=== PATIENT | female | born 1960 | race Caucasian/White ===

== ENCOUNTER → 2016-11-29 | Outpatient (CLI) | payer OTHER ==
--- NOTE | 2016-11-30 11:36 | MM ---
Reason for exam: screening (asymptomatic). Last mammogram was performed 5 years and 1 month ago. History: Patient has history of breast cancer at age 52. Family history of breast cancer in mother at age 50, breast cancer in grandmother, and breast cancer in paternal aunt. Taking antineoplastic. Physical Findings: A clinical breast exam by your physician is recommended on an annual basis and results should be correlated with mammographic findings. MG 3D Screening Mammo W/Cad Bilateral CC and MLO view(s) were taken. Prior study comparison: June 01, 2015, mammogram, performed at [facility]. November 14, 2011, [facility] DIGITAL BILATERAL MAMMOGRAM w/CAD. November 07, 2011, bilateral digital screening mammo w/CAD. The breast tissue is heterogeneously dense. This may lower the sensitivity of mammography. There is no discrete abnormality. Post lumpectomy changes upper outer right breast. No significant changes when compared with prior studies. ASSESSMENT: Benign, BI-RAD 2 RECOMMENDATION: Routine screening mammogram of both breasts in 1 year.
== END ==
LOC: RADMAMWWP 09:56
PROVIDERS: ATTEND Internal Medicine
DX: Z12.31 Encounter for screening mammogram for malignant neoplasm of breast (principal)
CPT/HCPCS: 77063; G0202

== ENCOUNTER → 2017-07-03 | Outpatient (CLI) | payer OTHER ==
--- NOTE | 2017-07-03 16:21 | BD ---
EXAMINATION TYPE: MG DEXA axial skeleton. DATE OF EXAM: 07/03/2017 COMPARISON: NONE CLINICAL HISTORY: 56-year-old female history of breast cancer, observation for metastases Height: 5 FT 1/2 IN Weight: 194 FRAX RISK QUESTIONS: Alcohol (3 or more units per day): NO Family History (Parent hip fracture): NO Glucocorticoids (More than 3mos): NO (Ex: prednisone, prednisolone, methylprednisolone, dexamethasone, and hydrocortisone). History of Fracture in Adulthood: NO Secondary Osteoporosis: 1. Type 1 Diabetes: NO 2. Hyperthyroidism: NO 3. Menopause before 45: NO 4. Malnutrition: NO 5. Chronic liver disease: NO Rheumatoid Arthritis: NO Current Tobacco Use: NO RISK FACTORS HISTORY OF: Family History of Osteoporosis: NO Active: YES Postmenopausal woman: CHEMO INDUCED AGE 52 Lost more than 2 inches in height since high school: YES MEDICATIONS: Thyroid Medications: YES Which medication: SYNTHROID How Lon YEARS Additional Medications: TAMOXIFEN, SYNTHROID, METFORMIN ,REQUIP, CELEXA, OMEPRAZOLE,ABILIFY, BLADDER SUPPORT MEDS, Additional History: BREAST CA AGE 52 CHEMO AND RADIATION EXAM MEASUREMENTS: Bone mineral densitometry was performed using the Covac[employer] System. Bone mineral density as measured about the Lumbar spine is: ----- L1-L4(G/cm2): 0.940 T Score Values are as follows: ----- L2: -2.0 ----- L3: -2.1 ----- L4: -2.2 ----- L1-L4: -2.0 Bone mineral density has: DECREASED -3.9 % since study of: 2014 Bone mineral density about the R hip (g/cm2): 0.945 Bone mineral density about the L hip (g/cm2): 0.918 T Score values are as follows: -----R Neck: -0.7 -----L Neck: -0.9 -----R Total: -0.5 -----L Total: -0.9 Bone mineral density has: DECREASED -5.0 % since study of: 2014 IMPRESSION: Osteopenia (T Score between -2.5 and -1 as noted by T score values There is slightly increased risk of fracture and the patient may be considered for treatment. Re-Screen 2-5 years. NOTE: T-SCORE=SD OF THE YOUNG ADULT MEAN.
== END | disposition home or self-care (01) ==
LOC: RADBDWWP 13:06
PROVIDERS: ATTEND Internal Medicine Hematology & Oncology
DX: Z03.89 Encounter for observation for other suspected diseases and conditions ruled out (principal); C50.611 Malignant neoplasm of axillary tail of right female breast; M85.80 Other specified disorders of bone density and structure, unspecified site
CPT/HCPCS: 77080

== ENCOUNTER 2017-09-24 17:05 | Observation (INO) | payer OTHER ==
[2017-09-24] MEDS ORDERED: ASPIRIN 81 MG PO STA (17:30)
[2017-09-24] MEDS ORDERED: NITROGLYCERIN OINT 1 INCH/GM PACKET TOPICAL STA (17:30)
--- NOTE | 2017-09-24 17:36 | ED ---
General Adult HPI - General Chief complaint: Chest Pain Stated complaint: Chest Pain Time Seen by Provider: 09/24/17 17:26 Source: patient, RN notes reviewed Mode of arrival: ambulatory Limitations: no limitations - History of Present Illness Initial comments: Patient is a pleasant 56-year-old female presenting to the emergency Department with chest discomfort. Onset was around 4:30. Symptoms were moderate to severe however now are near resolved. Discomfort felt like tightness in the sternal region with radiation up to the jaw. There may have been some mild associated dyspnea. No nausea or diaphoresis. Patient was doing light exertion at this time. Patient has had some similar symptoms but milder over the past several weeks. Prior to that no history of similar symptoms. No known history of cardiac disease. - Related Data Home Medications Medication Instructions Recorded Confirmed Tamoxifen Citrate 20 mg PO HS 04/10/16 09/24/17 Zolpidem Tartrate 5 mg PO HS PRN 04/10/16 09/24/17 metFORMIN HCL 500 mg PO AC-TID 04/10/16 09/24/17 rOPINIRole HCL 0.5 mg PO BID 04/10/16 09/24/17 ALPRAZolam [Xanax] 0.5 mg PO HS 09/24/17 09/24/17 ARIPiprazole [Abilify] 5 mg PO DAILY 09/24/17 09/24/17 Citalopram Hydrobromide [CeleXA] 40 mg PO DAILY 09/24/17 09/24/17 Levothyroxine Sodium [Synthroid] 175 mcg PO DAILY 09/24/17 09/24/17 Oxybutynin Chloride [Ditropan XL] 15 mg PO DAILY 09/24/17 09/24/17 Pantoprazole [Protonix] 40 mg PO DAILY 09/24/17 09/24/17 Tamoxifen Citrate 40 mg PO DAILY 09/24/17 09/24/17 glipiZIDE [Glucotrol] 5 mg PO BID 09/24/17 09/24/17 Allergies Allergy/AdvReac Type Severity Reaction Status Date / Time Penicillins Allergy Severe Anaphylaxis Verified 09/24/17 17:35 adhesive tape Allergy Rash/Hives Verified 09/24/17 17:35 prochlorperazine Allergy Confusion Verified 09/24/17 17:35 [From Compazine] Review of Systems ROS Statement: Those systems with pertinent positive or pertinent negative responses have been documented in the HPI. ROS Other: All systems not noted in ROS Statement are negative. Constitutional: Denies: fever Eyes: Denies: eye pain ENT: Denies: ear pain Respiratory: Denies: cough Cardiovascular: Reports: chest pain Endocrine: Denies: fatigue Gastrointestinal: Denies: abdominal pain Genitourinary: Denies: dysuria Musculoskeletal: Denies: back pain Skin: Denies: rash Neurological: Denies: headache Past Medical History Past Medical History: Cancer, Diabetes Mellitus, GERD/Reflux, Syncope, Thyroid Disorder Additional Past Medical History / Comment(s): RLS, NIDDM type II, recent R eye infection-taking antibiotic eye gtts, diverticular dx, syncope with blood draw once, migraines, breast cancer with surgery/chemo and radiation, hypothyroid, insomnia. History of Any Multi-Drug Resistant Organisms: None Reported Past Surgical History: Breast Surgery, Tonsillectomy Additional Past Surgical History / Comment(s): R breast bx, R breast partial mastectomy, R breast precancerous lesion removed, EGD x2, colonoscopy. Past Anesthesia/Blood Transfusion Reactions: No Reported Reaction Past Psychological History: Anxiety, Depression Smoking Status: Former smoker Past Alcohol Use History: None Reported Past Drug Use History: None Reported - Past Family History Mother Family Medical History: Cancer Additional Family Medical History / Comment(s): Mother had breast cancer. She is 75 yrs old. Father Family Medical History: No Reported History Additional Family Medical History / Comment(s): Father is healthy and is 79yrs old. General Exam Limitations: no limitations General appearance: alert, in no apparent distress Head exam: Present: atraumatic Eye exam: Present: normal appearance, PERRL ENT exam: Present: normal oropharynx Neck exam: Present: normal inspection Respiratory exam: Present: normal lung sounds bilaterally. Absent: chest wall tenderness Cardiovascular Exam: Present: regular rate, normal rhythm Expanded Peripheral pulses: 2+: Radial (R), Radial (L), Dorsalis Pedis (R), Dorsalis Pedis (L) GI/Abdominal exam: Present: soft. Absent: distended, tenderness Extremities exam: Present: normal inspection. Absent: pedal edema, calf tenderness Neurological exam: Present: alert Psychiatric exam: Present: normal affect, normal mood Skin exam: Present: normal color Course Vital Signs 09/24/17 09/24/17 17:08 18:09 Temperature 98.6 F Pulse Rate 84 82 Respiratory 20 16 Rate Blood Pressure 132/80 107/64 O2 Sat by Pulse 97 96 Oximetry EKG Findings - EKG Comments: EKG Findings:: Normal sinus rhythm 79. [place] 162. QRS 90. QT 400. QTc 458. Normal axis. Normal QRS. Nonspecific T waves. Medical Decision Making - Medical Decision Making Patient reevaluated and resting comfortably in bed. Patient updated on results and plan. Case was discussed in detail with Dr. Raza, who will admit his patient. - Lab Data Result diagrams: 09/24/17 17:24 09/24/17 17:24 Lab Results 09/24/17 09/24/17 09/24/17 Range/Units 17:24 17:24 17:24 WBC 6.7 (3.8-10.6) k/uL RBC 4.52 (3.80-5.40) m/uL Hgb 13.1 (11.4-16.0) gm/dL Hct 40.1 (34.0-46.0) % MCV 88.6 (80.0-100.0) fL MCH 29.1 (25.0-35.0) pg MCHC 32.8 (31.0-37.0) g/dL RDW 12.9 (11.5-15.5) % Plt Count 230 (150-450) k/uL Neutrophils % 50 % Lymphocytes % 40 % Monocytes % 4 % Eosinophils % 5 % Basophils % 0 % Neutrophils # 3.4 (1.3-7.7) k/uL Lymphocytes # 2.7 (1.0-4.8) k/uL Monocytes # 0.2 (0-1.0) k/uL Eosinophils # 0.3 (0-0.7) k/uL Basophils # 0.0 (0-0.2) k/uL PT (9.0-12.0) sec INR (<1.2) APTT (22.0-30.0) sec Sodium 139 (137-145) mmol/L Potassium 4.6 (3.5-5.1) mmol/L Chloride 102 (98-107) mmol/L Carbon Dioxide 23 (22-30) mmol/L Anion Gap 14 mmol/L BUN 15 (7-17) mg/dL Creatinine 0.72 (0.52-1.04) mg/dL Est GFR (CKD-EPI)AfAm >90 (>60 ml/min/1.73 sqM) Est GFR (CKD-EPI)NonAf >90 (>60 ml/min/1.73 sqM) Glucose 152 H (74-99) mg/dL Calcium 9.6 (8.4-10.2) mg/dL Magnesium 1.7 (1.6-2.3) mg/dL Total Bilirubin 0.3 (0.2-1.3) mg/dL AST 27 (14-36) U/L ALT 31 (9-52) U/L Alkaline Phosphatase 78 (38-126) U/L Total Creatine Kinase 52 (30-135) U/L CK-MB (CK-2) 0.5 (0.0-2.4) ng/mL CK-MB (CK-2) Rel Index 1.0 Troponin I <0.012 (0.000-0.034) ng/mL Total Protein 6.8 (6.3-8.2) g/dL Albumin 4.2 (3.5-5.0) g/dL 09/24/17 Range/Units 17:24 WBC (3.8-10.6) k/uL RBC (3.80-5.40) m/uL Hgb (11.4-16.0) gm/dL Hct (34.0-46.0) % MCV (80.0-100.0) fL MCH (25.0-35.0) pg MCHC (31.0-37.0) g/dL RDW (11.5-15.5) % Plt Count (150-450) k/uL Neutrophils % % Lymphocytes % % Monocytes % % Eosinophils % % Basophils % % Neutrophils # (1.3-7.7) k/uL Lymphocytes # (1.0-4.8) k/uL Monocytes # (0-1.0) k/uL Eosinophils # (0-0.7) k/uL Basophils # (0-0.2) k/uL PT 9.8 (9.0-12.0) sec INR 1.0 (<1.2) APTT 21.6 L (22.0-30.0) sec Sodium (137-145) mmol/L Potassium (3.5-5.1) mmol/L Chloride (98-107) mmol/L Carbon Dioxide (22-30) mmol/L Anion Gap mmol/L BUN (7-17) mg/dL Creatinine (0.52-1.04) mg/dL Est GFR (CKD-EPI)AfAm (>60 ml/min/1.73 sqM) Est GFR (CKD-EPI)NonAf (>60 ml/min/1.73 sqM) Glucose (74-99) mg/dL Calcium (8.4-10.2) mg/dL Magnesium (1.6-2.3) mg/dL Total Bilirubin (0.2-1.3) mg/dL AST (14-36) U/L ALT (9-52) U/L Alkaline Phosphatase (38-126) U/L Total Creatine Kinase (30-135) U/L CK-MB (CK-2) (0.0-2.4) ng/mL CK-MB (CK-2) Rel Index Troponin I (0.000-0.034) ng/mL Total Protein (6.3-8.2) g/dL Albumin (3.5-5.0) g/dL - Radiology Data Radiology results: image reviewed (Chest x-ray shows no acute process) Disposition Clinical Impression: Chest pain Disposition: ADMITTED IP TO THIS HOSP Is patient prescribed a controlled substance at d/c from ED?: No Referrals: Alex Raza MD [Primary Care Provider] - 1-2 days Decision Time: 19:16
[2017-09-24 17:49] LABS: Basophils % (A) 0 %; Eosinophils # (A) 0.3 k/uL (0-0.7); Eosinophils % (A) 5 %; HCT 40.1 % (34.0-46.0); HGB 13.1 gm/dL (11.4-16.0); Lymphocytes # (A) 2.7 k/uL (1.0-4.8); Lymphocytes % (A) 40 %; MCH 29.1 pg (25.0-35.0); MCHC 32.8 g/dL (31.0-37.0); MCV 88.6 fL (80.0-100.0); Mean Platelet Volume 7.8; Monocytes # (A) 0.2 k/uL (0-1.0); Monocytes % (A) 4 %; Neutrophils # (A) 3.4 k/uL (1.3-7.7); Neutrophils % (A) 50 %; Platelet Count 230 k/uL (150-450); RBC 4.52 m/uL (3.80-5.40); RDW 12.9 % (11.5-15.5); WBC 6.7 k/uL (3.8-10.6)
[2017-09-24 17:50] LABS: ALT 31 U/L (9-52); AST 27 U/L (14-36); Albumin 4.2 g/dL (3.5-5.0); Alkaline Phosphatase 78 U/L (38-126); Anion Gap 14 mmol/L; Blood Urea Nitrogen 15 mg/dL (7-17); Calcium 9.6 mg/dL (8.4-10.2); Carbon Dioxide 23 mmol/L (22-30); Chloride 102 mmol/L (98-107); Glucose 152 mg/dL (74-99); Magnesium 1.7 mg/dL (1.6-2.3); Potassium 4.6 mmol/L (3.5-5.1); Sodium 139 mmol/L (137-145); Total Bilirubin 0.3 mg/dL (0.2-1.3); Total Protein 6.8 g/dL (6.3-8.2)
--- NOTE | 2017-09-24 17:51 | XR ---
EXAMINATION TYPE: XR chest 2V DATE OF EXAM: 09/24/2017 COMPARISON: 04/10/2016 HISTORY: Chest pain TECHNIQUE: Frontal and lateral views of the chest are obtained. FINDINGS: There is no heart failure nor confluent pneumonic infiltrate. Costophrenic angles are luc r. There are chest leads. Bony thorax is intact. IMPRESSION: No active cardiopulmonary disease. No change.
[2017-09-24 18:07] LABS: Prothrombin Time 9.8 sec (9.0-12.0)
[2017-09-24 18:10] LABS: Partial Thromboplastin Time 21.6 sec (22.0-30.0)
[2017-09-24 18:27] LABS: Creatine Kinase 52 U/L (30-135)
[2017-09-24 18:40] LABS: Creatine Kinase MB 0.5 ng/mL (0.0-2.4); Troponin I <0.012 ng/mL (0.000-0.034)
[2017-09-24] MEDS ORDERED: NITROGLYCERIN SL TABS 0.4 MG TAB SUBLINGUAL PRN (19:17)
[2017-09-24 21:53] VITALS: BMI 30.4
[2017-09-24] MEDS ORDERED: ACETAMINOPHEN TAB 325 MG TAB PO PRN (23:56)
[2017-09-24] MEDS: NITROGLYCERIN OINT 1 INCH/GM PACKET TOPICAL SCH (23:58)
[2017-09-25 00:07] LABS: Creatine Kinase 40 U/L (30-135)
[2017-09-25 00:19] LABS: Creatine Kinase MB 0.4 ng/mL (0.0-2.4); Troponin I <0.012 ng/mL (0.000-0.034)
[2017-09-25] MEDS: NITROGLYCERIN OINT 1 INCH/GM PACKET TOPICAL SCH ×3 (05:25→17:41)
[2017-09-25 05:57] LABS: Cholesterol 161 mg/dL (<200); HDL Cholesterol 42 mg/dL (40-60); LDL Cholesterol,Calculated 90 mg/dL (0-99); Triglycerides 145 mg/dL (<150)
[2017-09-25 06:04] LABS: Creatine Kinase 39 U/L (30-135)
[2017-09-25 06:17] LABS: Creatine Kinase MB 0.5 ng/mL (0.0-2.4); Troponin I <0.012 ng/mL (0.000-0.034)
[2017-09-25 06:56] LABS: Glucose,Whole Blood 164 mg/dL (75-99)
[2017-09-25 07:57] VITALS: RESP 18
[2017-09-25] MEDS ORDERED: ASPIRIN 325 MG TAB PO SCH (09:00)
--- NOTE | 2017-09-25 10:41 | ECHOF ---
Referral Reason:cp MEASUREMENTS -------- HEIGHT: 170.2 cm WEIGHT: 88.0 kg BP: 86/51 RVIDd: 2.7 cm (< 3.3) IVSd: 0.9 cm (0.6 - 1.1) LVIDd: 4.9 cm (3.9 - 5.3) LVPWd: 1.0 cm (0.6 - 1.1) IVSs: 1.3 cm LVIDs: 3.5 cm LVPWs: 1.4 cm LA Diam: 2.9 cm (2.7 - 3.8) LAESV Index (A-L): 22.94 ml/m Ao Diam: 3.2 cm (2.0 - 3.7) AV Cusp: 1.9 cm (1.5 - 2.6) MV EXCURSION: 26.725 mm (> 18.000) MV EF SLOPE: 135 mm/s (70 - 150) EPSS: 0.5 cm MV E Magan: 0.75 m/s MV DecT: 202 ms MV A Magan: 0.79 m/s MV E/A Ratio: 0.95 FINDINGS -------- Sinus rhythm. This was a technically adequate study. The left ventricular size is normal. Left ventricular wall thickness is normal. Overall left vent ricular systolic function is normal with, an EF between 55 - 60 %. The right ventricle is normal in size and function. Normal LA size by volume 22+/-6 ml/m2. The right atrium is normal in size. The aortic valve is trileaflet and appears structurally normal. The mitral valve is normal. No regurgitation noted There is no pulmonic regurgitation present. The aortic root size is normal. IVC Not well visulized. There is no pericardial effusion. CONCLUSIONS -------- 1. Sinus rhythm. 2. This was a technically adequate study. 3. The left ventricular size is normal. 4. Left ventricular wall thickness is normal. 5. Overall left ventricular systolic function is normal with, an EF between 55 - 60 %. 6. The right ventricle is normal in size and function. 7. Normal LA size by volume 22+/-6 ml/m2. 8. The right atrium is normal in size. 9. The aortic valve is trileaflet and appears structurally normal. 10. The mitral valve is normal. 11. No regurgitation noted 12. There is no pulmonic regurgitation present. 13. The aortic root size is normal. 14. IVC Not well visulized. 15. There is no pericardial effusion. LOAN APPROVER: Mirna Garcia RDCS
--- NOTE | 2017-09-25 11:52 | P.CRDCN ---
History of Present Illness Consult date: 09/25/17 History of present illness: Mrs. Aranda is a pleasant 56-year-old female past medical history for diabetes mellitus, breast cancer, gastroesophageal reflux disease, hypothyroid and osteoarthritis. She denies history of coronary artery disease. She underwent cardiac catheterization in 2016 which revealed normal coronary arteries with EF 60% by Dr. Chavez. We have been asked to see her in consultation for chest pain. 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 The heaviness persisted after the initial 15 minutes but the radiation and associated shortness of breath subsided and EMS was called. No further symptoms since arriving here and receiving sl ntg per EMS. She denies associated dizziness, palpitations, nausea, vomiting or diaphoresis. EKG sinus mechanism with non-specific T-wave abnormalities. No change from previous EKG. Chest xray negative for an acute cardiopulmonary process. Laboratory data reviewed, hemoglobin 13.1, platelets 2:30, sodium 139, potassium 4.6, magnesium 1.7, cardiac enzymes negative 3, LDL 90. Review of Systems At the time my exam: CONSTITUTIONAL: Denies fever. Denies chills. EYES: Denies blurred vision. Denies vision changes. Denies eye pain. EARS, NOSE, MOUTH & THROAT: Denies headache. Denies sore throat. Denies ear pain. CARDIOVASCULAR: Denies chest pain. Denies shortness of breath. Denies orthopnea. Denies PND. Denies palpitations. RESPIRATORY: Denies cough. GASTROINTESTINAL: Denies abdominal pain. Denies diarrhea. Denies constipation. Denies nausea. Denies vomiting. MUSCULOSKELETAL: Denies myalgias. INTEGUMENTARY: Denies pruitis. Denies rash. NEUROLOGIC: Denies numbness. Denies tingling. Denies weakness. PSYCHIATRIC: Denies anxiety. Denies depression. ENDOCRINE: Denies fatigue. Denies weight change. Denies polydipsia. Denies polyurina. GENITOURINARY: Denies burning, hematuria or urgency with micturation. HEMATOLOGIC: Denies history of anemia. Denies bleeding. Past Medical History Past Medical History: Asthma, Cancer, Diabetes Mellitus, GERD/Reflux, Osteoarthritis (OA), Syncope, Thyroid Disorder Additional Past Medical History / Comment(s): RLS, NIDDM type II, diverticular dx, syncope with blood draw once, migraines, breast cancer with surgery/chemo and radiation, hypothyroid, insomnia, heart cath 2017 History of Any Multi-Drug Resistant Organisms: None Reported Past Surgical History: Breast Surgery, Tonsillectomy Additional Past Surgical History / Comment(s): R breast bx, R breast partial mastectomy, R breast precancerous lesion removed, EGD x2, colonoscopy. Past Anesthesia/Blood Transfusion Reactions: No Reported Reaction Past Psychological History: Anxiety, Depression Additional Psychological History / Comment(s): Pt states she is on medication for depression and it is working well for her. She is independent. She lives at home with her spouse and children. Smoking Status: Former smoker Past Alcohol Use History: None Reported Additional Past Alcohol Use History / Comment(s): Pt states she smoked for one yr-age 19 to age 20yrs. Past Drug Use History: None Reported - Past Family History Mother Family Medical History: Cancer, Diabetes Mellitus Additional Family Medical History / Comment(s): Mother had breast cancer. She is 75 yrs old. Father Family Medical History: No Reported History, Cancer Additional Family Medical History / Comment(s): Father is healthy and is 79yrs old, prostate CA Brother(s) Family Medical History: Cancer Additional Family Medical History / Comment(s): Surgery throat CA Medications and Allergies Home Medications Medication Instructions Recorded Confirmed Type Tamoxifen Citrate 20 mg PO HS 04/10/16 09/24/17 History Zolpidem Tartrate 5 mg PO HS PRN 04/10/16 09/24/17 History metFORMIN HCL 500 mg PO AC-TID 04/10/16 09/24/17 History rOPINIRole HCL 1 mg PO BID 04/10/16 09/24/17 History ALPRAZolam [Xanax] 0.5 mg PO HS 09/24/17 09/24/17 History ARIPiprazole [Abilify] 5 mg PO DAILY 09/24/17 09/24/17 History Citalopram Hydrobromide [CeleXA] 40 mg PO DAILY 09/24/17 09/24/17 History Levothyroxine Sodium [Synthroid] 175 mcg PO DAILY 09/24/17 09/24/17 History Oxybutynin Chloride [Ditropan XL] 15 mg PO DAILY 09/24/17 09/24/17 History Pantoprazole [Protonix] 40 mg PO DAILY 09/24/17 09/24/17 History Tamoxifen Citrate 40 mg PO DAILY 09/24/17 09/24/17 History glipiZIDE [Glucotrol] 5 mg PO BID 09/24/17 09/24/17 History Allergies Allergy/AdvReac Type Severity Reaction Status Date / Time Penicillins Allergy Severe Anaphylaxis Verified 09/24/17 21:29 adhesive tape Allergy Rash/Hives Verified 09/24/17 21:29 prochlorperazine Allergy Confusion Verified 09/24/17 21:29 [From Compazine] Physical Exam Vitals: Vital Signs Temp Pulse Pulse Resp BP BP Pulse Ox 09/25/17 07:25 98.2 F 65 18 86/51 96 09/25/17 03:46 80 16 09/25/17 03:43 97.8 F 80 16 100/60 93 L 09/25/17 00:00 84 16 09/24/17 23:56 98.3 F 84 16 109/63 94 L 09/24/17 21:20 97.6 F 95 18 127/83 95 09/24/17 21:00 98 18 09/24/17 20:55 98.1 F 09/24/17 20:30 91 18 124/88 98 09/24/17 19:24 91 18 113/76 96 09/24/17 18:09 82 16 107/64 96 09/24/17 17:08 98.6 F 84 20 132/80 97 Intake and Output 09/24/17 09/25/17 09/25/17 22:59 06:59 14:59 Intake Total 500 250 Balance 500 250 Intake: Oral 500 250 Other: Voiding Method Toilet Toilet # Voids 1 2 Weight 88 kg Blood pressure 86/51 heart rate 65 afebrile maintaining oxygen saturation on room air GENERAL: This is a 56-year-old occasion female in no apparent distress at the time of my examination. HEENT: Head is atraumatic, normocephalic. Pupils are equal, round. Sclerae anicteric. Conjunctivae are clear. Mucous membranes of the mouth are moist. Neck is supple. There is no jugular venous distention. No carotid bruit is heard. LUNGS: Clear to auscultation no wheezes, rales or rhonchi. No chest wall tenderness is noted on palpation or with deep breathing. HEART: Regular rate and rhythm without murmurs, rubs or gallops. S1 and S2 heard. ABDOMEN: Soft, nontender. Bowel sounds are heard. No organomegaly noted. EXTREMITIES: No evidence of peripheral edema and no calf tenderness noted. VASCULAR: Radial and dorsalis pedis pulses palpated, no evidence of clubbing. NEUROLOGIC: Patient is awake, alert and oriented x3. Results 09/24/17 17:24 09/24/17 17:24 Cardiac Enzymes 09/24/17 09/24/17 09/24/17 Range/Units 17:24 17:24 23:26 AST 27 (14-36) U/L CK-MB (CK-2) 0.5 0.4 (0.0-2.4) ng/mL Troponin I <0.012 <0.012 (0.000-0.034) ng/mL 09/25/17 Range/Units 05:29 AST (14-36) U/L CK-MB (CK-2) 0.5 (0.0-2.4) ng/mL Troponin I <0.012 (0.000-0.034) ng/mL Coagulation 09/24/17 Range/Units 17:24 PT 9.8 (9.0-12.0) sec APTT 21.6 L (22.0-30.0) sec Lipids 09/25/17 Range/Units 05:29 Triglycerides 145 (<150) mg/dL Cholesterol 161 (<200) mg/dL HDL Cholesterol 42 (40-60) mg/dL CBC 09/24/17 Range/Units 17:24 WBC 6.7 (3.8-10.6) k/uL RBC 4.52 (3.80-5.40) m/uL Hgb 13.1 (11.4-16.0) gm/dL Hct 40.1 (34.0-46.0) % Plt Count 230 (150-450) k/uL Comprehensive Metabolic Panel 09/24/17 Range/Units 17:24 Sodium 139 (137-145) mmol/L Potassium 4.6 (3.5-5.1) mmol/L Chloride 102 (98-107) mmol/L Carbon Dioxide 23 (22-30) mmol/L BUN 15 (7-17) mg/dL Creatinine 0.72 (0.52-1.04) mg/dL Glucose 152 H (74-99) mg/dL Calcium 9.6 (8.4-10.2) mg/dL AST 27 (14-36) U/L ALT 31 (9-52) U/L Alkaline Phosphatase 78 (38-126) U/L Total Protein 6.8 (6.3-8.2) g/dL Albumin 4.2 (3.5-5.0) g/dL Current Medications Generic Name Dose Route Start Last Admin Trade Name Freq PRN Reason Stop Dose Admin Acetaminophen 650 mg 09/24/17 23:56 09/25/17 00:16 Tylenol Tab PO 650 mg Q4HR PRN Administration Fever and/ or Pain Aspirin 325 mg 09/25/17 09:00 Aspirin PO DAILY ODESSA Nitroglycerin 1 inch 09/25/17 00:00 09/25/17 05:25 Nitro-Bid Oint TOPICAL Not Given Q6HR ODESSA Nitroglycerin 0.4 mg 09/24/17 19:17 Nitrostat SUBLINGUAL Q5M PRN Chest Pain Intake and Output 09/24/17 09/25/17 09/25/17 22:59 06:59 14:59 Intake Total 500 250 Balance 500 250 Intake: Oral 500 250 Other: Voiding Method Toilet Toilet # Voids 1 2 Weight 88 kg 09/24/17 17:24 09/24/17 17:24 Assessment and Plan Assessment: ASSESSMENT 1. Precordial chest pain. An acute coronary event has been ruled out. PLAN Hold Nitro-Bid secondary to hypotension. Obtain 2-D echocardiogram and Doppler study to assess cardiac structure and function. Perform stress echocardiogram to assess for stress-induced cardiac ischemia. Stress test is normal she is stable from a cardiac perspective. Follow-up with primary care physician upon discharge. Thank you kindly for this consultation. The above impression and plan of care have been discussed and directed by the signing physician. Ann Marie Mcfarland, nurse practitioner, acting as scribe for signing physician.
[2017-09-25] MEDS ORDERED: ZOLPIDEM 5 MG TAB PO PRN (11:58)
[2017-09-25] MEDS ORDERED: ARIPiprazole 5 MG TAB PO SCH (12:00)
[2017-09-25] MEDS ORDERED: CITALOPRAM HYDROBROMIDE 20 MG TAB PO SCH (12:00)
[2017-09-25] MEDS ORDERED: LEVOTHYROXINE 100 MCG TAB PO SCH (12:00)
[2017-09-25] MEDS ORDERED: LEVOTHYROXINE 75 MCG TAB PO SCH (12:00)
[2017-09-25 12:23] LABS: Glucose,Whole Blood 147 mg/dL (75-99)
--- NOTE | 2017-09-25 12:41 | ECHOS ---
STRESS ECHOCARDIOGRAM INDICATIONS: Chest pain. BASELINE HEART RATE: 87 BASELINE BLOOD PRESSURE: 140/96 MAXIMUM HEART RATE: 142 MAXIMUM BLOOD PRESSURE: 151/59 85% MPHR: 141 100% MPHR: 161 MAXIMUM STAGE REACHED: I TOTAL EXERCISE TIME: 4:30 CLINICAL INFORMATION: Baseline EKG shows sinus rhythm, nonspecific ST-T wave changes. Patient exercised on Seun protocol for a total of 4.5 minutes achieving 5 METS, 88% of predicted maximal heart rate without chest pain or diagnostic ST-segment depression. Baseline echo shows normal left ventricular size, wall motion and systolic function. Intravenous contrast was used to enhance endocardial visualization. Postexercise, we do not see any exercise induced wall motion abnormalities. CONCLUSION: 1. Poor exercise tolerance. 2. Negative stress test by EKG criteria. 3. Negative stress echo. MMODL / IJN: [id number] /
[2017-09-25] MEDS: metFORMIN 500 MG TAB PO SCH ×2 (13:54→17:40)
[2017-09-25 14:13] LABS: Hemoglobin A1C 8.6 % (4.0-6.0)
[2017-09-25 16:35] VITALS: BP 121/79; PULSE 80; TEMP 98.4
[2017-09-25 17:24] LABS: Glucose,Whole Blood 123 mg/dL (75-99)
[2017-09-25] MEDS ORDERED: glipiZIDE 5 MG TAB PO SCH (17:30)
--- NOTE | 2017-09-25 17:58 | P.HPIM ---
History of Present Illness H&P Date: 09/25/17 Godwin Aranda is a 56-year-old female well known to my practice who presented to [facility] emergency room with a chief complaint of chest pain. She denies history of coronary artery disease. She had previous episodes of chest pain in the past. She underwent cardiac catheterization in 2016 which revealed normal coronary arteries with EF 60% by Dr. Chavez. 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 She denies associated dizziness, palpitations, nausea, vomiting or diaphoresis. EKG sinus rhythm with non-specific T-wave abnormalities. No change from previous EKG. Chest xray negative for an acute cardiopulmonary process. Patient has a known history of [id number] diabetes mellitus, history of hypothyroidism, history of breast cancer was previous history of radiation therapy 5 years ago, history of depression with anxiety disorder, and history of gastroesophageal reflux disease, patient had EGD with Dr. Espinoza 2 weeks ago results are not available at this time. Past Medical History Past Medical History: Asthma, Cancer, Diabetes Mellitus, GERD/Reflux, Osteoarthritis (OA), Syncope, Thyroid Disorder Additional Past Medical History / Comment(s): RLS, NIDDM type II, diverticular dx, syncope with blood draw once, migraines, breast cancer with surgery/chemo and radiation, hypothyroid, insomnia, heart cath 2017 History of Any Multi-Drug Resistant Organisms: None Reported Past Surgical History: Breast Surgery, Tonsillectomy Additional Past Surgical History / Comment(s): R breast bx, R breast partial mastectomy, R breast precancerous lesion removed, EGD x2, colonoscopy. Past Anesthesia/Blood Transfusion Reactions: No Reported Reaction Past Psychological History: Anxiety, Depression Additional Psychological History / Comment(s): Pt states she is on medication for depression and it is working well for her. She is independent. She lives at home with her spouse and children. Smoking Status: Former smoker Past Alcohol Use History: None Reported Additional Past Alcohol Use History / Comment(s): Pt states she smoked for one yr-age 19 to age 20yrs. Past Drug Use History: None Reported - Past Family History Mother Family Medical History: Cancer, Diabetes Mellitus Additional Family Medical History / Comment(s): Mother had breast cancer. She is 75 yrs old. Father Family Medical History: No Reported History, Cancer Additional Family Medical History / Comment(s): Father is healthy and is 79yrs old, prostate CA Brother(s) Family Medical History: Cancer Additional Family Medical History / Comment(s): Surgery throat CA Medications and Allergies Home Medications Medication Instructions Recorded Confirmed Type Zolpidem Tartrate 5 mg PO HS PRN 04/10/16 09/24/17 History metFORMIN HCL 500 mg PO AC-TID 04/10/16 09/24/17 History rOPINIRole HCL 1 mg PO BID 04/10/16 09/24/17 History ALPRAZolam [Xanax] 0.5 mg PO HS 09/24/17 09/24/17 History ARIPiprazole [Abilify] 5 mg PO DAILY 09/24/17 09/24/17 History Citalopram Hydrobromide [CeleXA] 40 mg PO DAILY 09/24/17 09/24/17 History Levothyroxine Sodium [Synthroid] 175 mcg PO DAILY 09/24/17 09/24/17 History Oxybutynin Chloride [Ditropan XL] 15 mg PO DAILY 09/24/17 09/24/17 History Pantoprazole [Protonix] 40 mg PO DAILY 09/24/17 09/24/17 History Tamoxifen Citrate 20 mg PO DAILY 09/24/17 09/25/17 History glipiZIDE [Glucotrol] 5 mg PO BID 09/24/17 09/24/17 History Allergies Allergy/AdvReac Type Severity Reaction Status Date / Time Penicillins Allergy Severe Anaphylaxis Verified 09/24/17 21:29 adhesive tape Allergy Rash/Hives Verified 09/24/17 21:29 prochlorperazine Allergy Confusion Verified 09/24/17 21:29 [From Compazine] Physical Exam Vitals: Vital Signs Temp Pulse Pulse Resp BP BP Pulse Ox 09/25/17 16:30 98.4 F 80 18 121/79 93 L 09/25/17 16:00 80 18 09/25/17 12:00 78 18 09/25/17 11:15 98.1 F 78 18 106/74 93 L 09/25/17 08:00 65 18 09/25/17 07:25 98.2 F 65 18 86/51 96 09/25/17 03:46 80 16 09/25/17 03:43 97.8 F 80 16 100/60 93 L 09/25/17 00:00 84 16 09/24/17 23:56 98.3 F 84 16 109/63 94 L 09/24/17 21:20 97.6 F 95 18 127/83 95 09/24/17 21:00 98 18 09/24/17 20:55 98.1 F 09/24/17 20:30 91 18 124/88 98 09/24/17 19:24 91 18 113/76 96 09/24/17 18:09 82 16 107/64 96 Intake and Output 09/25/17 09/25/17 09/25/17 06:59 14:59 22:59 Intake Total 250 Balance 250 Intake: Oral 250 Other: Voiding Method Toilet Toilet Toilet # Voids 2 3 In general patient is alert and oriented 3 in no apparent distress HEENT head normocephalic and atraumatic Neck is supple no JVD no goiter no lymphadenopathy Chest exam reveals a few scattered crackles no wheezing Cardiac exam reveals regular heart sounds S1 and S2 no gallops no murmurs Abdomen is soft nontender no organomegaly with normal bowel sounds Extremity exam reveals no edema no cyanosis or clubbing Neurological examination reveals no gross focal deficit Results CBC & Chem 7: 09/24/17 17:24 09/24/17 17:24 Labs: Abnormal Lab Results - Last 24 Hours (Table) 09/24/17 09/24/17 09/25/17 Range/Units 17:24 17:24 05:29 APTT 21.6 L (22.0-30.0) sec Glucose 152 H (74-99) mg/dL POC Glucose (mg/dL) (75-99) mg/dL Hemoglobin A1c 8.6 H (4.0-6.0) % 09/25/17 09/25/17 09/25/17 Range/Units 06:53 12:21 17:22 APTT (22.0-30.0) sec Glucose (74-99) mg/dL POC Glucose (mg/dL) 164 H 147 H 123 H (75-99) mg/dL Hemoglobin A1c (4.0-6.0) % Thrombosis Risk Factor Assmnt - Choose All That Apply Each Factor Represents 1 point: Age 41-60 years, Obesity (BMI >25), Varicose veins Other congenital or acquired thrombophilia - If yes, enter type in comment: No Thrombosis Risk Factor Assessment Total Risk Factor Score: 3 Thrombosis Risk Factor Assessment Level: Moderate Risk Assessment and Plan Plan: 1. chest pain, myocardial infarction ruled out 3 sets of cardiac enzymes are negative 2. Previous history of breast cancer with history of radiation therapy 3. History of gastroesophageal reflux disease with history of difficulty swallowing food , patient had an EGD at [facility] by Dr. Espinoza recently Will obtain results . 4. Underlying history of [id number] diabetes mellitus 5. Underlying history of hypothyroidism 6. Underlying history of depression. Patient is admitted to 24-hour observation, stress echo is ordered patient was seen by cardiology will follow during this admission.
--- NOTE | 2017-09-25 18:06 | P.DS ---
Providers Date of admission: 09/24/17 19:17 Attending physician: Alex Raza Consults: 09/24/17 19:17 Consult Physician Urgent Consulting Provider: Zhanna Chavez Consult Reason/Comments: cp Do you want consulting provider notified?: Yes Primary care physician: Alex Raza [facility] Course: Diagnoses on discharge: 1. chest pain, myocardial infarction ruled out 3 sets of cardiac enzymes are negative 2. Previous history of breast cancer with history of radiation therapy 3. History of gastroesophageal reflux disease with history of difficulty swallowing food , patient had an EGD at [facility] by Dr. Espinoza recently Will obtain results . 4. Underlying history of ssc-[id number] diabetes mellitus 5. Underlying history of hypothyroidism 6. Underlying history of depression. Hospital course: Godwin Aranda is a 56-year-old female well known to my practice who presented to [facility] emergency room with a chief complaint of chest pain. She denies history of coronary artery disease. She had previous episodes of chest pain in the past. She underwent cardiac catheterization in 2016 which revealed normal coronary arteries with EF 60% by Dr. Chavez. 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 She denies associated dizziness, palpitations, nausea, vomiting or diaphoresis. EKG sinus rhythm with non-specific T-wave abnormalities. No change from previous EKG. Chest xray negative for an acute cardiopulmonary process. Patient has a known history of [id number] diabetes mellitus, history of hypothyroidism, history of breast cancer was previous history of radiation therapy 5 years ago, history of depression with anxiety disorder, and history of gastroesophageal reflux disease, patient had EGD with Dr. Espinoza 2 weeks ago results are not available at this time. Patient was admitted to 24-hour observation she underwent an EKG and 3 sets of cardiac enzymes that were negative she was chest pain-free throughout this admission she underwent a stress echo which was negative she was evaluated by cardiology and was cleared for discharge. Patient was discharged home on 09/25/2017 she will be followed up in our office in 2-3 days for further evaluation and treatment. Plan - Discharge Summary Discharge Rx Participant: No New Discharge Prescriptions: New Aspirin EC [Ecotrin Low Dose] 81 mg PO DAILY 30 Days #30 tablet. Nitroglycerin Sl Tabs [Nitrostat] 0.4 mg SUBLINGUAL Q5M PRN #25 tab PRN Reason: Chest Pain Continue metFORMIN HCL 500 mg PO AC-TID rOPINIRole HCL 1 mg PO BID Zolpidem Tartrate 5 mg PO HS PRN PRN Reason: Insomnia Oxybutynin Chloride [Ditropan XL] 15 mg PO DAILY ARIPiprazole [Abilify] 5 mg PO DAILY glipiZIDE [Glucotrol] 5 mg PO BID Pantoprazole [Protonix] 40 mg PO DAILY Levothyroxine Sodium [Synthroid] 175 mcg PO DAILY ALPRAZolam [Xanax] 0.5 mg PO HS Tamoxifen Citrate 20 mg PO DAILY Citalopram Hydrobromide [CeleXA] 40 mg PO DAILY Discharge Medication List Zolpidem Tartrate 5 mg PO HS PRN 04/10/16 [History] metFORMIN HCL 500 mg PO AC-TID 04/10/16 [History] rOPINIRole HCL 1 mg PO BID 04/10/16 [History] ALPRAZolam [Xanax] 0.5 mg PO HS 09/24/17 [History] ARIPiprazole [Abilify] 5 mg PO DAILY 09/24/17 [History] Citalopram Hydrobromide [CeleXA] 40 mg PO DAILY 09/24/17 [History] Levothyroxine Sodium [Synthroid] 175 mcg PO DAILY 09/24/17 [History] Oxybutynin Chloride [Ditropan XL] 15 mg PO DAILY 09/24/17 [History] Pantoprazole [Protonix] 40 mg PO DAILY 09/24/17 [History] Tamoxifen Citrate 20 mg PO DAILY 09/24/17 [History] glipiZIDE [Glucotrol] 5 mg PO BID 09/24/17 [History] Aspirin EC [Ecotrin Low Dose] 81 mg PO DAILY 30 Days #30 tablet. 09/25/17 [Rx] Nitroglycerin Sl Tabs [Nitrostat] 0.4 mg SUBLINGUAL Q5M PRN #25 tab 09/25/17 [Rx ] Follow up Appointment(s)/Referral(s): Alex Raza MD [Primary Care Provider] - 1-2 days
[2017-09-25] MEDS ORDERED: ALPRAZolam 0.5 MG TAB PO SCH (21:00)
[2017-09-25] MEDS ORDERED: TAMOXIFEN 10 MG TAB PO SCH (21:00)
[2017-09-26] MEDS ORDERED: PANTOPRAZOLE 40 MG TABLET PO SCH (09:00)
[2017-09-26] MEDS ORDERED: OXYBUTYNIN 15 MG TAB.ER.24 PO SCH (09:00)
[2017-09-26] MEDS ORDERED: TAMOXIFEN 10 MG TAB PO SCH (09:00)
== END 2017-09-25 18:25 | disposition home or self-care (01) ==
LOC: EC 17:05 → 3OBS 19:17
PROVIDERS: ADMIT Internal Medicine; ATTEND Internal Medicine
DX: R07.2 Precordial pain (principal); R06.02 Shortness of breath; F41.9 Anxiety disorder, unspecified; I95.9 Hypotension, unspecified; J45.909 Unspecified asthma, uncomplicated; M19.90 Unspecified osteoarthritis, unspecified site; G47.00 Insomnia, unspecified; K21.9 Gastro-esophageal reflux disease without esophagitis; E11.9 Type 2 diabetes mellitus without complications; F32.9 Major depressive disorder, single episode, unspecified; G43.909 Migraine, unspecified, not intractable, without status migrainosus; G25.81 Restless legs syndrome; Z85.3 Personal history of malignant neoplasm of breast; Z92.3 Personal history of irradiation; E03.9 Hypothyroidism, unspecified; Z92.21 Personal history of antineoplastic chemotherapy; Z87.891 Personal history of nicotine dependence; Z80.8 Family history of malignant neoplasm of other organs or systems; Z80.42 Family history of malignant neoplasm of prostate; Z79.84 Long term (current) use of oral hypoglycemic drugs; Z79.899 Other long term (current) drug therapy; Z79.890 Hormone replacement therapy; Z91.048 Other nonmedicinal substance allergy status; Z88.0 Allergy status to penicillin; Z88.8 Allergy status to other drugs, medicaments and biological substances; E66.9 Obesity, unspecified; Z68.30 Body mass index [BMI] 30.0-30.9, adult
CPT/HCPCS: 99285; 36415; 93005; 93306; 80061; 80053; 82550 ×2; 82553 ×2; 83735; 84484 ×2; 85025; 85610; 85730; 83036; 71046; G0378 ×2; C8930; Q9950; 93351

== ENCOUNTER → 2017-10-18 | Outpatient (CLI) | payer OTHER ==
--- NOTE | 2017-10-18 12:37 | US ---
EXAMINATION TYPE: US gallbladder DATE OF EXAM: 10/18/2017 COMPARISON: NONE CLINICAL HISTORY: R10.13 Epigastric pain radiating to back EXAM MEASUREMENTS: Liver Length: 13.3 cm Gallbladder Wall: 0.2 cm CBD: 0.3 cm Right Kidney: 11.5 x 4.8 x 4.3 cm Pancreas: hyperechoic Liver: Hyperechoic with right renal cortex. This finding most commonly relates to hepatic steatosis and limits evaluation for underlying hepatic masses. Possible focal sparing is noted at gallbladder l evel as oval hypoechoic areas Gallbladder: wnl Evidence for sonographic Blanc's sign: No CBD: wnl Right Kidney: No hydronephrosis or masses seen IMPRESSION: Findings most commonly related to hepatic steatosis appearing moderate in degree. Probabl e focal fatty sparing is seen in segment IVb near the gallbladder fossa. Confirmation could be perfor med with dynamic enhanced CT.
== END | disposition home or self-care (01) ==
LOC: RADUSWWP 11:52
PROVIDERS: ATTEND Internal Medicine
DX: R10.13 Epigastric pain (principal)
CPT/HCPCS: 76705

== ENCOUNTER 2017-11-15 09:52 | Emergency (ER) | payer OTHER ==
[2017-11-15 09:58] VITALS: RESP 18
[2017-11-15] MEDS ORDERED: MORPHINE SULFATE 2 MG/ML SYRINGE IV STA (10:19)
[2017-11-15] MEDS ORDERED: MAG HYDROX/AL HYDROX/SIMETH 30 ML, HYOSCYAMINE ELIXIR 10 ML, CIMETIDINE HCL 300 MG, LID... PO STA ×4 (10:20)
--- NOTE | 2017-11-15 10:25 | ED ---
General Adult HPI - General Chief complaint: Chest Pain Stated complaint: CHEST PAIN X 3 DAYS Time Seen by Provider: 11/15/17 09:59 Source: patient Mode of arrival: wheelchair Limitations: no limitations - History of Present Illness Initial comments: 56-year-old female presents with central chest pain. Patient states her pain has been present for the past 3 days. Initially began at rest. Patient states that he has been worsening over the past 3 days. It is nonexertional. She describes it as a sharp pain. She does have history of gastric reflux, she states this is dissimilar from her normal reflux. States that the pain does travel into her neck. She took nitroglycerin prior to arrival with no change in her symptoms. She has no known history of CAD. She had stress testing done within the past several months which was negative. She is a nonsmoker. - Related Data Home Medications Medication Instructions Recorded Confirmed Zolpidem Tartrate 5 mg PO HS PRN 04/10/16 11/15/17 metFORMIN HCL 500 mg PO AC-TID 04/10/16 11/15/17 ARIPiprazole [Abilify] 5 mg PO DAILY 09/24/17 11/15/17 Citalopram Hydrobromide [CeleXA] 40 mg PO DAILY 09/24/17 11/15/17 Levothyroxine Sodium [Synthroid] 175 mcg PO DAILY 09/24/17 11/15/17 Oxybutynin Chloride [Ditropan XL] 15 mg PO DAILY 09/24/17 11/15/17 Pantoprazole [Protonix] 40 mg PO DAILY 09/24/17 11/15/17 Tamoxifen Citrate 20 mg PO DAILY 09/24/17 11/15/17 ALPRAZolam [Xanax] 0.25 mg PO HS 11/15/17 11/15/17 Albuterol Inhaler [Ventolin Hfa 1 - 2 puff INHALATION RT-Q6H PRN 11/15/17 Inhaler] Atorvastatin [Lipitor] 40 mg PO DAILY 11/15/17 11/15/17 Linagliptin [Tradjenta] 5 mg PO DAILY 11/15/17 11/15/17 Loratadine-Pseudoeph 10-240 mg 1 tab PO DAILY 11/15/17 11/15/17 [Claritin-D 24 Hr] Meclizine [Antivert] 25 mg PO DAILY 11/15/17 11/15/17 Metoprolol Tartrate [Lopressor] 25 mg PO BID 11/15/17 11/15/17 rOPINIRole HCL [Requip] 1 mg PO BID 11/15/17 11/15/17 Previous Rx's Medication Instructions Recorded Aspirin EC [Ecotrin Low Dose] 81 mg PO DAILY 30 Days #30 09/25/17 tablet. Nitroglycerin Sl Tabs [Nitrostat] 0.4 mg SUBLINGUAL Q5M PRN #25 tab 09/25/17 Azithromycin [Zithromax Z-pack] 0 mg PO DIRECTED #6 tab 11/15/17 Famotidine [Pepcid] 20 mg PO DAILY #30 tablet 11/15/17 Ibuprofen [Motrin] 600 mg PO Q8HR PRN #24 tab 11/15/17 Allergies Allergy/AdvReac Type Severity Reaction Status Date / Time Penicillins Allergy Severe Anaphylaxis Verified 11/15/17 10:40 adhesive tape Allergy Rash/Hives Verified 11/15/17 10:40 prochlorperazine Allergy Confusion Verified 11/15/17 10:40 [From Compazine] Review of Systems ROS Statement: Those systems with pertinent positive or pertinent negative responses have been documented in the HPI. ROS Other: All systems not noted in ROS Statement are negative. Past Medical History Past Medical History: Asthma, Cancer, Diabetes Mellitus, GERD/Reflux, Osteoarthritis (OA), Syncope, Thyroid Disorder Additional Past Medical History / Comment(s): RLS, NIDDM type II, diverticular dx, syncope with blood draw once, migraines, breast cancer with surgery/chemo and radiation, hypothyroid, insomnia, heart cath 2017 History of Any Multi-Drug Resistant Organisms: None Reported Past Surgical History: Breast Surgery, Tonsillectomy Additional Past Surgical History / Comment(s): R breast bx, R breast partial mastectomy, R breast precancerous lesion removed, EGD x2, colonoscopy. Past Anesthesia/Blood Transfusion Reactions: No Reported Reaction Past Psychological History: Anxiety, Depression Smoking Status: Former smoker Past Alcohol Use History: None Reported Past Drug Use History: None Reported - Past Family History Mother Family Medical History: Cancer, Diabetes Mellitus Additional Family Medical History / Comment(s): Mother had breast cancer. She is 75 yrs old. Father Family Medical History: No Reported History, Cancer Additional Family Medical History / Comment(s): Father is healthy and is 79yrs old, prostate CA Brother(s) Family Medical History: Cancer Additional Family Medical History / Comment(s): Surgery throat CA General Exam Limitations: no limitations General appearance: alert, in no apparent distress Head exam: Present: atraumatic, normocephalic Eye exam: Present: normal appearance, PERRL ENT exam: Present: normal exam Neck exam: Present: normal inspection. Absent: tenderness, meningismus Respiratory exam: Present: normal lung sounds bilaterally. Absent: respiratory distress, wheezes Cardiovascular Exam: Present: normal rhythm, tachycardia GI/Abdominal exam: Present: soft. Absent: distended, tenderness, guarding Extremities exam: Present: normal inspection, normal capillary refill. Absent: pedal edema, joint swelling Neurological exam: Present: alert, oriented X3, CN II-XII intact. Absent: motor sensory deficit Psychiatric exam: Present: normal affect, normal mood Skin exam: Present: warm, dry, intact. Absent: cyanosis, diaphoretic Course Vital Signs 11/15/17 11/15/17 11/15/17 09:55 10:55 12:01 Temperature 98.7 F Pulse Rate 103 H 109 H 96 Respiratory 18 18 18 Rate Blood Pressure 120/83 111/68 111/74 O2 Sat by Pulse 96 97 95 Oximetry 11/15/17 12:54 Temperature Pulse Rate 100 Respiratory 18 Rate Blood Pressure 108/70 O2 Sat by Pulse 96 Oximetry EKG Findings - EKG Comments: EKG Findings:: EKG: Obtained at 1006, sinus tachycardia with T-wave inversion in the precordial leads, poor baseline in leads 23 and aVF, no ST segment elevation, rate of 102, NH interval 168, QRS duration 86, QTC 437. Repeat EKG obtained at 1040 shows sinus tachycardia with persistent T-wave inversion. This is compared to old EKG obtained in September which is unchanged. There is no ST segment elevation. Rate of 102, NH interval 160, QRS duration 94, QTC 435 Medical Decision Making - Medical Decision Making 56-year-old female presenting with left-sided and central chest pain which is been present for 3 days. EKG does show some ischemic changes with T-wave inversion however this is unchanged from previous EKG. Symptoms have been constant for 3 days. Patient had a stress test and stress echo in September of this year which were negative. She had a heart catheterization in June 2015 which showed normal coronary arteries. Chest x-ray today is negative for any acute cardiopulmonary disease. CBC, CMP are within normal limits. Troponin is negative which is reassuring as symptoms have been present for the past 3 days and have been constant. CT is obtained this is negative for any acute cardiopulmonary embolism, there is some basilar atelectasis. Patient is given the option for observation and cardiology consultation she prefers to be discharged home. Her pain is unlikely cardiac in nature. Given normal chest x- ray, normal labs, and normal CT I'm comfortable with discharge at this time. She will return with any worsening or changing symptoms. She will try Motrin and Pepcid. She is also given a prescription for antibiotics as there is some atelectasis which may be early pneumonia she develops fever or cough she will begin antibiotics. - Lab Data Result diagrams: 11/15/17 10:12 11/15/17 10:12 Lab Results 11/15/17 11/15/17 11/15/17 Range/Units 10:12 10:12 10:12 WBC 10.4 (3.8-10.6) k/uL RBC 4.66 (3.80-5.40) m/uL Hgb 13.9 (11.4-16.0) gm/dL Hct 42.7 (34.0-46.0) % MCV 91.6 (80.0-100.0) fL MCH 29.7 (25.0-35.0) pg MCHC 32.5 (31.0-37.0) g/dL RDW 13.1 (11.5-15.5) % Plt Count 222 (150-450) k/uL Neutrophils % 78 % Lymphocytes % 16 % Monocytes % 3 % Eosinophils % 2 % Basophils % 0 % Neutrophils # 8.1 H (1.3-7.7) k/uL Lymphocytes # 1.6 (1.0-4.8) k/uL Monocytes # 0.3 (0-1.0) k/uL Eosinophils # 0.2 (0-0.7) k/uL Basophils # 0.0 (0-0.2) k/uL PT (9.0-12.0) sec INR (<1.2) APTT (22.0-30.0) sec D-Dimer (<0.60) mg/L FEU Sodium 137 (137-145) mmol/L Potassium 4.6 (3.5-5.1) mmol/L Chloride 101 (98-107) mmol/L Carbon Dioxide 23 (22-30) mmol/L Anion Gap 13 mmol/L BUN 12 (7-17) mg/dL Creatinine 0.80 (0.52-1.04) mg/dL Est GFR (CKD-EPI)AfAm >90 (>60 ml/min/1.73 sqM) Est GFR (CKD-EPI)NonAf 84 (>60 ml/min/1.73 sqM) Glucose 311 H (74-99) mg/dL Calcium 9.5 (8.4-10.2) mg/dL Magnesium 1.7 (1.6-2.3) mg/dL Total Bilirubin 0.4 (0.2-1.3) mg/dL AST 20 (14-36) U/L ALT 32 (9-52) U/L Alkaline Phosphatase 84 (38-126) U/L Total Creatine Kinase 25 L (30-135) U/L CK-MB (CK-2) 0.3 (0.0-2.4) ng/mL CK-MB (CK-2) Rel Index 1.2 Troponin I <0.012 (0.000-0.034) ng/mL NT-Pro-B Natriuret Pep pg/mL Total Protein 6.8 (6.3-8.2) g/dL Albumin 4.2 (3.5-5.0) g/dL Amylase 33 (30-110) U/L 11/15/17 11/15/17 Range/Units 10:12 10:12 WBC (3.8-10.6) k/uL RBC (3.80-5.40) m/uL Hgb (11.4-16.0) gm/dL Hct (34.0-46.0) % MCV (80.0-100.0) fL MCH (25.0-35.0) pg MCHC (31.0-37.0) g/dL RDW (11.5-15.5) % Plt Count (150-450) k/uL Neutrophils % % Lymphocytes % % Monocytes % % Eosinophils % % Basophils % % Neutrophils # (1.3-7.7) k/uL Lymphocytes # (1.0-4.8) k/uL Monocytes # (0-1.0) k/uL Eosinophils # (0-0.7) k/uL Basophils # (0-0.2) k/uL PT 9.4 (9.0-12.0) sec INR 0.9 (<1.2) APTT 20.8 L (22.0-30.0) sec D-Dimer 0.36 (<0.60) mg/L FEU Sodium (137-145) mmol/L Potassium (3.5-5.1) mmol/L Chloride (98-107) mmol/L Carbon Dioxide (22-30) mmol/L Anion Gap mmol/L BUN (7-17) mg/dL Creatinine (0.52-1.04) mg/dL Est GFR (CKD-EPI)AfAm (>60 ml/min/1.73 sqM) Est GFR (CKD-EPI)NonAf (>60 ml/min/1.73 sqM) Glucose (74-99) mg/dL Calcium (8.4-10.2) mg/dL Magnesium (1.6-2.3) mg/dL Total Bilirubin (0.2-1.3) mg/dL AST (14-36) U/L ALT (9-52) U/L Alkaline Phosphatase (38-126) U/L Total Creatine Kinase (30-135) U/L CK-MB (CK-2) (0.0-2.4) ng/mL CK-MB (CK-2) Rel Index Troponin I (0.000-0.034) ng/mL NT-Pro-B Natriuret Pep 45 pg/mL Total Protein (6.3-8.2) g/dL Albumin (3.5-5.0) g/dL Amylase (30-110) U/L Disposition Clinical Impression: Chest pain Disposition: HOME SELF-CARE Condition: Good Instructions: Chest Pain (ED) Prescriptions: Azithromycin [Zithromax Z-pack] 0 mg PO DIRECTED #6 tab Famotidine [Pepcid] 20 mg PO DAILY #30 tablet Ibuprofen [Motrin] 600 mg PO Q8HR PRN #24 tab PRN Reason: Pain Is patient prescribed a controlled substance at d/c from ED?: No Referrals: Alex Raza MD [Primary Care Provider] - 1-2 days Time of Disposition: 14:09
[2017-11-15 10:33] LABS: Basophils % (A) 0 %; Eosinophils # (A) 0.2 k/uL (0-0.7); Eosinophils % (A) 2 %; HCT 42.7 % (34.0-46.0); HGB 13.9 gm/dL (11.4-16.0); Lymphocytes # (A) 1.6 k/uL (1.0-4.8); Lymphocytes % (A) 16 %; MCH 29.7 pg (25.0-35.0); MCHC 32.5 g/dL (31.0-37.0); MCV 91.6 fL (80.0-100.0); Mean Platelet Volume 7.6; Monocytes # (A) 0.3 k/uL (0-1.0); Monocytes % (A) 3 %; Neutrophils # (A) 8.1 k/uL (1.3-7.7); Neutrophils % (A) 78 %; Platelet Count 222 k/uL (150-450); RBC 4.66 m/uL (3.80-5.40); RDW 13.1 % (11.5-15.5); WBC 10.4 k/uL (3.8-10.6)
--- NOTE | 2017-11-15 10:42 | XR ---
EXAMINATION TYPE: XR chest 2V DATE OF EXAM: 11/15/2017 COMPARISON: 09/24/2017 HISTORY: Chest pain and sternal pain with associated neck pain. Right axillary dissection and lumpect dc for breast cancer. TECHNIQUE: Frontal and lateral views of the chest are obtained. FINDINGS: Right axillary surgical clips are noted from prior lymph node dissection. No gross osseous abnormality is seen within the sternum on chest radiograph although in this patient with a history o f breast cancer nuclear medicine bone scan would be more sensitive. Cardiac silhouette is mildly enla rged. This may relative as there is better inspiration on the prior exam. No new focal consolidation, pleural effusion or pneumothorax. IMPRESSION: 1. No acute cardiopulmonary process. 2. No sternal osseous lesion, however in this patient with breast carcinoma nuclear medicine bone sca n would be more sensitive.
[2017-11-15 10:46] LABS: ALT 32 U/L (9-52); AST 20 U/L (14-36); Albumin 4.2 g/dL (3.5-5.0); Alkaline Phosphatase 84 U/L (38-126); Amylase 33 U/L (30-110); Anion Gap 13 mmol/L; Blood Urea Nitrogen 12 mg/dL (7-17); Calcium 9.5 mg/dL (8.4-10.2); Carbon Dioxide 23 mmol/L (22-30); Chloride 101 mmol/L (98-107); Glucose 311 mg/dL (74-99); Magnesium 1.7 mg/dL (1.6-2.3); Potassium 4.6 mmol/L (3.5-5.1); Sodium 137 mmol/L (137-145); Total Bilirubin 0.4 mg/dL (0.2-1.3); Total Protein 6.8 g/dL (6.3-8.2)
[2017-11-15 10:54] LABS: D-Dimer 0.36 mg/L FEU (<0.60); INR 0.9 (<1.2); Partial Thromboplastin Time 20.8 sec (22.0-30.0); Prothrombin Time 9.4 sec (9.0-12.0)
[2017-11-15 10:55] LABS: Creatine Kinase 25 U/L (30-135)
[2017-11-15 11:08] LABS: Creatine Kinase MB 0.3 ng/mL (0.0-2.4); Troponin I <0.012 ng/mL (0.000-0.034)
--- NOTE | 2017-11-15 12:10 | CT ---
EXAMINATION TYPE: CT angio chest DATE OF EXAM: 11/15/2017 COMPARISON: Chest x-ray 11/15/2017 HISTORY: Chest pain x3 days CT DLP: 350.5 mGycm Automated exposure control for dose reduction was used. CONTRAST: CTA scan of the thorax is performed with IV Contrast, patient injected with 75 mL of Isovue 370, pulm onary embolism protocol. MIP images are created and reviewed. 3D reconstructed images are created o n an independent workstation and reviewed. FINDINGS: LUNGS: The lungs are remarkable for some basilar atelectatic changes, difficult to exclude some airsp janet disease, there is no concerning parenchymal mass or nodule identified. There is no pleural effu jenny or pneumothorax seen. The tracheobronchial tree is patent. AORTA: No additional significant abnormality is seen. MEDIASTINUM: There is satisfactory enhancement of the pulmonary artery and its branches, there is no CT evidence for pulmonary embolism. There are no greater than 1 cm hilar or mediastinal lymph nodes. No pericardial effusion is seen. The heart is enlarged. Air present within the pulmonary outflow t ract is likely introduced during intravenous access OTHER: The liver shows low attenuation with areas of focal sparing compatible with hepatic steatosis , suspect hepatic enlargement is present. IMPRESSION: NO EVIDENT PULMONARY EMBOLISM. FINDINGS IN THE LUNG BASES, FOLLOW-UP SUGGESTED. ADDITIONAL FINDINGS A DAVIAN.
[2017-11-15 14:41] VITALS: BP 141/66; PULSE 84; TEMP 98
== END 2017-11-15 14:40 | disposition home or self-care (01) ==
LOC: EC 09:52
DX: R07.9 Chest pain, unspecified (principal); R94.31 Abnormal electrocardiogram [ECG] [EKG]; J98.11 Atelectasis; R00.0 Tachycardia, unspecified; M54.2 Cervicalgia; E11.9 Type 2 diabetes mellitus without complications; J45.909 Unspecified asthma, uncomplicated; K21.9 Gastro-esophageal reflux disease without esophagitis; G25.81 Restless legs syndrome; E03.9 Hypothyroidism, unspecified; F32.9 Major depressive disorder, single episode, unspecified; F41.9 Anxiety disorder, unspecified; Z87.891 Personal history of nicotine dependence; Z79.84 Long term (current) use of oral hypoglycemic drugs; Z79.899 Other long term (current) drug therapy; Z88.0 Allergy status to penicillin; Z88.8 Allergy status to other drugs, medicaments and biological substances; Z91.09 Other allergy status, other than to drugs and biological substances; Z86.69 Personal history of other diseases of the nervous system and sense organs; Z85.3 Personal history of malignant neoplasm of breast; Z90.11 Acquired absence of right breast and nipple; Z92.21 Personal history of antineoplastic chemotherapy; Z92.3 Personal history of irradiation; Z95.9 Presence of cardiac and vascular implant and graft, unspecified
CPT/HCPCS: 36415; 93005; 85379; 83880; 80053; 82150; 82550; 82553; 83735; 84484; 85025; 85610; 85730; 71046; 71275; 99285; 96374; J2270; Q9967

== ENCOUNTER → 2017-12-24 | Outpatient (CLI) | payer OTHER ==
--- NOTE | 2017-12-24 14:18 | MM ---
Reason for exam: additional evaluation requested from prior study. Last mammogram was performed 1 year and 1 month ago. History: Patient is postmenopausal and has history of breast cancer at age 52. Family history of breast cancer in mother at age 50, breast cancer in grandmother, and breast cancer in paternal aunt. Taking antineoplastic. Physical Findings: Nurse did not find any significant physical abnormalities on exam. MG Diagnostic Mammo w CAD BALDEMAR Bilateral CC and MLO view(s) were taken. Prior study comparison: November 29, 2016, bilateral MG 3d screening mammo w/cad. June 01, 2015, mammogram, performed at [facility]. The breast tissue is heterogeneously dense. This may lower the sensitivity of mammography. No suspicious abnormality. Post therapy change on the right. These results were verbally communicated with the patient and result sheet given to the patient on 12/24/17. ASSESSMENT: Benign, BI-RAD 2 RECOMMENDATION: Follow-up diagnostic mammogram of both breasts in 1 year.
== END | disposition home or self-care (01) ==
LOC: RADMAMWWP 12:55
PROVIDERS: ATTEND Internal Medicine Hematology & Oncology
DX: Z08 Encounter for follow-up examination after completed treatment for malignant neoplasm (principal); Z85.3 Personal history of malignant neoplasm of breast
CPT/HCPCS: 77066

== ENCOUNTER → 2018-02-26 | Outpatient (CLI) | payer OTHER ==
--- NOTE | 2018-02-27 09:40 | MR ---
EXAMINATION TYPE: MR brain wo/w con DATE OF EXAM: 02/26/2018 COMPARISON: HISTORY: TECHNIQUE: Multiplanar, multisequence images of the brain and brainstem is performed without and with IV contras t, utilizing mL intravenous . FINDINGS: Diffusion weighted images demonstrate no evidence of a recent infarct or other diffusion ab normality. There is no extra-axial fluid collection. There are scattered hyperintensities in the ce ntrum semiovale, periventricular white matter on inversion recovery T2-weighted sequences, approximat angle 10-20 lesions measuring approximately 2 to 3 mm. The ventricular system and cisternal spaces are normal in size and appearance. The brain volume is age appropriate. Midline structures demonstrate normal morphology. The craniocervical junction appears within normal limits. Post contrast images demonstrate no abnormal enhancement. The dural venous sinuses appear pa tent. The visualized sinuses are remarkable for inflammatory change in the ethmoid air cells, there i s mucoperiosteal thickening in the maxillary sinus, frontal sinus and inflammatory change in the righ t mastoid air cells greater than left is noted. The globes are intact. IMPRESSION: Nonspecific white matter demyelination, findings could be related to migraine headache, h ypertension, vasculitis, chronic small vessel ischemic change, Lyme disease, multiple sclerosis in th e appropriate clinical setting. Sinus disease. No abnormality evident to suggest metastatic disease. Inflammatory changes also noted in the mastoid air cells.
== END | disposition home or self-care (01) ==
LOC: RADMRIMAIN 19:15
PROVIDERS: ATTEND Internal Medicine
DX: R90.89 Other abnormal findings on diagnostic imaging of central nervous system (principal); Z85.3 Personal history of malignant neoplasm of breast
CPT/HCPCS: 70553; A9581

== ENCOUNTER 2018-08-19 16:59 | Inpatient (IN) | payer OTHER ==
[2018-08-19] MEDS ORDERED: ASPIRIN 81 MG PO STA (17:33)
--- NOTE | 2018-08-19 17:39 | ED ---
Chest Pain HPI - General Chief Complaint: Chest Pain Stated Complaint: Low blood sugar/Chest pain Time Seen by Provider: 08/19/18 17:24 Source: patient Mode of arrival: wheelchair Limitations: no limitations - History of Present Illness Initial Comments: The patient presents with a chief complaint of chest pain. Using by her primary care doctor today and was instructed to come to the emergency department for further testing. Patient states that the chest pain has been intermittent for several months, almost a year. She states that she cannot identify an inciting incident, though it appears to be exertional. She has symptoms of lightheadedness, shortness of breath, and diaphoresis when these episodes come. She has used nitroglycerin and states that it does relieve her chest pain. She has a past medical history of breast cancer, currently on maintenance and is far she knows is cancer free. - Related Data Home Medications Medication Instructions Recorded Confirmed Zolpidem Tartrate 5 mg PO HS PRN 04/10/16 08/19/18 metFORMIN HCL 500 mg PO AC-TID 04/10/16 08/19/18 ARIPiprazole [Abilify] 5 mg PO DAILY 09/24/17 08/19/18 Citalopram Hydrobromide [CeleXA] 40 mg PO DAILY 09/24/17 08/19/18 Oxybutynin Chloride [Ditropan XL] 15 mg PO DAILY 09/24/17 08/19/18 Pantoprazole [Protonix] 40 mg PO DAILY 09/24/17 08/19/18 ALPRAZolam [Xanax] 0.25 mg PO HS 11/15/17 08/19/18 rOPINIRole HCL [Requip] 1 mg PO BID 11/15/17 08/19/18 Anastrozole [Arimidex] 1 mg PO DAILY 08/19/18 08/19/18 Levothyroxine Sodium [Synthroid] 137 mcg PO DAILY 08/19/18 08/19/18 glipiZIDE [Glucotrol] 5 mg PO BID 08/19/18 08/19/18 Previous Rx's Medication Instructions Recorded Nitroglycerin Sl Tabs [Nitrostat] 0.4 mg SUBLINGUAL Q5M PRN #25 tab 09/25/17 Ibuprofen [Motrin] 600 mg PO Q8HR PRN #24 tab 11/15/17 Allergies Allergy/AdvReac Type Severity Reaction Status Date / Time Penicillins Allergy Severe Anaphylaxis Verified 08/19/18 18:59 adhesive tape Allergy Rash/Hives Verified 08/19/18 18:59 prochlorperazine Allergy Confusion Verified 08/19/18 18:59 [From Compazine] Review of Systems ROS Statement: Those systems with pertinent positive or pertinent negative responses have been documented in the HPI. ROS Other: All systems not noted in ROS Statement are negative. Respiratory: Reports: dyspnea Cardiovascular: Reports: chest pain, dyspnea on exertion Past Medical History Past Medical History: Asthma, Cancer, Diabetes Mellitus, GERD/Reflux, Osteoarthritis (OA), Syncope, Thyroid Disorder Additional Past Medical History / Comment(s): RLS, NIDDM type II, diverticular dx, syncope with blood draw once, migraines, breast cancer with surgery/chemo and radiation, hypothyroid, insomnia, heart cath 2017 History of Any Multi-Drug Resistant Organisms: None Reported Past Surgical History: Breast Surgery, Tonsillectomy Additional Past Surgical History / Comment(s): R breast bx, R breast partial mastectomy, R breast precancerous lesion removed, EGD x2, colonoscopy. Past Anesthesia/Blood Transfusion Reactions: No Reported Reaction Past Psychological History: Anxiety, Depression Smoking Status: Former smoker Past Alcohol Use History: None Reported Past Drug Use History: None Reported - Past Family History Mother Family Medical History: Cancer, Diabetes Mellitus Additional Family Medical History / Comment(s): Mother had breast cancer. She is 75 yrs old. Father Family Medical History: No Reported History, Cancer Additional Family Medical History / Comment(s): Father is healthy and is 79yrs old, prostate CA Brother(s) Family Medical History: Cancer Additional Family Medical History / Comment(s): Surgery throat CA General Exam Limitations: no limitations General appearance: alert, in no apparent distress Head exam: Present: atraumatic, normocephalic Eye exam: Present: normal appearance ENT exam: Present: normal exam Neck exam: Present: normal inspection Respiratory exam: Present: normal lung sounds bilaterally. Absent: respiratory distress, wheezes Cardiovascular Exam: Present: regular rate, normal rhythm GI/Abdominal exam: Present: soft. Absent: distended, tenderness Rectal exam: Present: deferred Extremities exam: Present: normal inspection. Absent: calf tenderness Back exam: Present: normal inspection Neurological exam: Present: alert, oriented X3 Psychiatric exam: Present: normal affect, normal mood Skin exam: Present: warm, dry, intact Course Vital Signs 08/19/18 08/19/18 17:06 18:53 Temperature 98.7 F Pulse Rate 101 H 108 H Respiratory 18 20 Rate Blood Pressure 119/80 138/93 O2 Sat by Pulse 98 97 Oximetry Chest Pain MDM - MDM Patient presents with a chief complaint of chest pain. On initial evaluation, vitals are stable, patient is in no acute distress. EKG performed at 1724 shows normal sinus rhythm with a rate of 94 beats per minutes. There are nonspecific ST and T-wave abnormalities, segments appear within normal limits. When compared to previous EKG performed on 11/15/2017, waveforms are similar. Does not appear to be any acute signs of ischemia. Patient to be evaluated basic labs including troponin, d-dimer. She'll be sent for a chest x-ray. Ultimately, patient will be admitted as she is a high risk heart score. Given HPI, comorbidities, and concern of her primary care doctor. 7:26 PM Lab evaluation this patient is remarkable for an anemia with a hemoglobin of 7.6. This is lower than previous values by several points, normally patient has a hemoglobin of high tens to low elevens. D-dimer is negative, troponin is negative. Case discussed Dr. Raza who accepts admission. Patient informed of results and care plan, she is agreeable. HEART Score for Major Cardiac Events from [email or web address] on 08/19/2018 All calculations should be rechecked by clinician prior to use RESULT SUMMARY: 6 points Moderate Score (4-6 points) Risk of MACE of 12-16.6%. INPUTS: History > 2 = Highly suspicious EKG > 1 = Non-specific repolarization disturbance Age > 1 = 45-64 Risk factors > 2 = ?3 risk factors or history of atherosclerotic disease Initial troponin > 0 = ?normal limit Disposition Clinical Impression: Anemia, Chest pain Disposition: ADMITTED IP TO THIS HOSP Condition: Good Is patient prescribed a controlled substance at d/c from ED?: No Referrals: Alex Raza MD [Primary Care Provider] - 1-2 days Decision to Admit Reason: Admit from EC - Out of Hospital Transfer - Req. Specs Out of Hospital Transfer - Requested Specifics: Telemetry Unit
[2018-08-19 17:47] LABS: Anisocytosis Slight; Basophils % (A) 1 %; Eosinophils # (A) 0.2 k/uL (0-0.7); Eosinophils % (A) 3 %; HCT 24.5 % (34.0-46.0); HGB 7.6 gm/dL (11.4-16.0); Hypochromasia Marked; Lymphocytes # (A) 2.5 k/uL (1.0-4.8); Lymphocytes % (A) 33 %; MCH 23.9 pg (25.0-35.0); MCHC 30.9 g/dL (31.0-37.0); MCV 77.3 fL (80.0-100.0); Mean Platelet Volume 6.9; Microcytosis Slight; Monocytes # (A) 0.3 k/uL (0-1.0); Monocytes % (A) 4 %; Neutrophils # (A) 4.4 k/uL (1.3-7.7); Neutrophils % (A) 58 %; Platelet Count 367 k/uL (150-450); Poikilocytosis Slight; RBC 3.17 m/uL (3.80-5.40); RDW 16.1 % (11.5-15.5); WBC 7.6 k/uL (3.8-10.6)
[2018-08-19 18:00] LABS: Anion Gap 8 mmol/L; Blood Urea Nitrogen 13 mg/dL (7-17); Calcium 9.8 mg/dL (8.4-10.2); Carbon Dioxide 26 mmol/L (22-30); Chloride 105 mmol/L (98-107); Glucose 66 mg/dL (74-99); Potassium 4.3 mmol/L (3.5-5.1); Sodium 139 mmol/L (137-145)
--- NOTE | 2018-08-19 19:03 | XR ---
EXAMINATION TYPE: XR chest 2V DATE OF EXAM: 08/19/2018 COMPARISON: 11/15/2017 HISTORY: History of breast carcinoma. Chest pain. TECHNIQUE: Frontal and lateral views of the chest are obtained. FINDINGS: There is no focal air space opacity, pleural effusion, or pneumothorax seen. The cardiac silhouette size is upper limits of normal. Right axillary surgical clips are noted. The osseous stru ctures are intact. Mild multilevel degenerative changes of the spine are seen. IMPRESSION: No acute cardiopulmonary process.
[2018-08-19] MEDS ORDERED: NALOXONE 0.4 MG/ML 1 ML VIAL IV PRN (19:24)
[2018-08-19 21:47] LABS: Glucose,Whole Blood 134 mg/dL (75-99)
[2018-08-20 06:36] LABS: ALT 30 U/L (9-52); AST 19 U/L (14-36); Albumin 3.6 g/dL (3.5-5.0); Alkaline Phosphatase 76 U/L (38-126); Anion Gap 8 mmol/L; Blood Urea Nitrogen 14 mg/dL (7-17); Calcium 9.3 mg/dL (8.4-10.2); Carbon Dioxide 25 mmol/L (22-30); Chloride 104 mmol/L (98-107); Glucose 203 mg/dL (74-99); Potassium 4.5 mmol/L (3.5-5.1); Sodium 137 mmol/L (137-145); Total Bilirubin 0.2 mg/dL (0.2-1.3); Total Protein 6.3 g/dL (6.3-8.2)
[2018-08-20 06:44] LABS: Anisocytosis Slight; Basophils % (A) 1 %; Eosinophils # (A) 0.2 k/uL (0-0.7); Eosinophils % (A) 2 %; HCT 22.2 % (34.0-46.0); Hypochromasia Marked; Lymphocytes # (A) 2.5 k/uL (1.0-4.8); Lymphocytes % (A) 33 %; MCH 24.3 pg (25.0-35.0); MCHC 30.9 g/dL (31.0-37.0); MCV 78.6 fL (80.0-100.0); Mean Platelet Volume 6.8; Microcytosis Slight; Monocytes # (A) 0.3 k/uL (0-1.0); Monocytes % (A) 4 %; Neutrophils # (A) 4.6 k/uL (1.3-7.7); Neutrophils % (A) 59 %; Platelet Count 336 k/uL (150-450); RBC 2.82 m/uL (3.80-5.40); RDW 16.1 % (11.5-15.5); WBC 7.8 k/uL (3.8-10.6)
[2018-08-20 06:48] LABS: Glucose,Whole Blood 234 mg/dL (75-99)
[2018-08-20 07:07] LABS: HGB 6.9 gm/dL (11.4-16.0)
[2018-08-20] MEDS ORDERED: ZOLPIDEM 5 MG TAB PO PRN (08:24)
[2018-08-20] MEDS ORDERED: ACETAMINOPHEN TAB 325 MG TAB PO PRN (08:28)
[2018-08-20] MEDS ORDERED: ONDANSETRON 4 MG/2 ML VIAL IVP PRN (08:28)
[2018-08-20] MEDS: CITALOPRAM HYDROBROMIDE 20 MG TAB PO SCH (08:58)
[2018-08-20] MEDS: ARIPiprazole 5 MG TAB PO SCH (08:59)
[2018-08-20] MEDS: LEVOTHYROXINE 137 MCG TAB PO SCH (08:59)
[2018-08-20] MEDS: ANASTROZOLE 1 MG TAB PO SCH (08:59)
[2018-08-20] MEDS: OXYBUTYNIN 15 MG TAB.ER.24 PO SCH (08:59)
[2018-08-20] MEDS: PANTOPRAZOLE 40 MG TABLET PO SCH (09:03)
[2018-08-20 11:41] LABS: Glucose,Whole Blood 175 mg/dL (75-99)
--- NOTE | 2018-08-20 11:55 | P.HPIM ---
History of Present Illness H&P Date: 08/20/18 This is a 57-year-old female patient who presented to the hospital complaining of chest pain. Patient reports that this chest pain intermittently occurring on and off for the past few months. Patient also reports shortness of breath with activity. On admission patient was found to have a hemoglobin of 7.6. Patient reports that she's been having frequent nosebleeds she goes through a whole roll of toilet paper to control the bleeding. Patient reports this is been intermittently occurring over the past month or so. Sometimes twice a day. Patient denies any signs of blood in her urine stool or emesis. Patient denies any abnormal bruising. Patient does have a history of breast cancer in which he follows with Dr. Garner, asthma, diabetes mellitus, GERD, osteoarthritis, hypothyroidism, anxiety and depression. Chest x-ray completed showing no acute cardiopulmonary process. Troponins negative 3. EKG completed showing normal sinus rhythm, low-voltage QRS. Repeat hemoglobin the same 6.9. Will transfuse 1 unit of PRBCs. Cardiology, GI services and hematology service is consulted. At this time patient denies chest pain or shortness of breath. Patient denies nausea vomiting or diarrhea. Patient denies any urinary burning or frequency Review of Systems Please refer to HPI otherwise unremarkable Past Medical History Past Medical History: Asthma, Cancer, Diabetes Mellitus, GERD/Reflux, Osteoarthritis (OA), Syncope, Thyroid Disorder Additional Past Medical History / Comment(s): RLS, NIDDM type II, diverticular dx, syncope with blood draw once, migraines, breast cancer with surgery/chemo and radiation (2013), hypothyroid, insomnia, heart cath 2016 History of Any Multi-Drug Resistant Organisms: None Reported Past Surgical History: Breast Surgery, Tonsillectomy Additional Past Surgical History / Comment(s): R breast bx, R breast partial mastectomy, R breast precancerous lesion removed, EGD x2, colonoscopy. Past Anesthesia/Blood Transfusion Reactions: No Reported Reaction Past Psychological History: Anxiety, Depression Additional Psychological History / Comment(s): Pt states she is on medication for depression and it is working well for her. She is independent. She lives at home with her spouse and children. Smoking Status: Former smoker Past Alcohol Use History: None Reported Additional Past Alcohol Use History / Comment(s): Pt states she smoked for one yr-age 19 to age 20yrs. Past Drug Use History: None Reported - Past Family History Mother Family Medical History: Cancer, Diabetes Mellitus Additional Family Medical History / Comment(s): Mother had breast cancer. She is 75 yrs old. Father Family Medical History: No Reported History, Cancer Additional Family Medical History / Comment(s): Father is healthy and is 79yrs old, prostate CA, bladder CA Brother(s) Family Medical History: Cancer, Myocardial Infarction ([place]) Additional Family Medical History / Comment(s): Surgery throat CA Medications and Allergies Home Medications Medication Instructions Recorded Confirmed Type Zolpidem Tartrate 5 mg PO HS PRN 04/10/16 08/19/18 History metFORMIN HCL 500 mg PO AC-TID 04/10/16 08/19/18 History ARIPiprazole [Abilify] 5 mg PO DAILY 09/24/17 08/19/18 History Citalopram Hydrobromide [CeleXA] 40 mg PO DAILY 09/24/17 08/19/18 History Oxybutynin Chloride [Ditropan XL] 15 mg PO DAILY 09/24/17 08/19/18 History Pantoprazole [Protonix] 40 mg PO DAILY 09/24/17 08/19/18 History Nitroglycerin Sl Tabs [Nitrostat] 0.4 mg SUBLINGUAL Q5M PRN #25 tab 09/25/17 08/19/18 Rx ALPRAZolam [Xanax] 0.25 mg PO HS 11/15/17 08/19/18 History Ibuprofen [Motrin] 600 mg PO Q8HR PRN #24 tab 11/15/17 08/19/18 Rx rOPINIRole HCL [Requip] 1 mg PO BID 11/15/17 08/19/18 History Anastrozole [Arimidex] 1 mg PO DAILY 08/19/18 08/19/18 History Levothyroxine Sodium [Synthroid] 137 mcg PO DAILY 08/19/18 08/19/18 History glipiZIDE [Glucotrol] 5 mg PO BID 08/19/18 08/19/18 History Allergies Allergy/AdvReac Type Severity Reaction Status Date / Time Penicillins Allergy Severe Anaphylaxis Verified 08/19/18 18:59 adhesive tape Allergy Rash/Hives Verified 08/19/18 18:59 prochlorperazine Allergy Confusion Verified 08/19/18 18:59 [From Compazine] Physical Exam Vitals: Vital Signs Temp Pulse Pulse Resp BP BP BP 08/20/18 11:09 98.4 F 100 16 121/60 08/20/18 08:00 79 18 08/20/18 07:57 98.7 F 79 18 97/62 08/20/18 04:00 98.6 F 95 18 103/64 08/20/18 00:00 98.1 F 103 H 18 122/78 08/19/18 20:00 98.2 F 97 18 118/83 08/19/18 19:55 98.5 F 95 18 110/80 08/19/18 18:53 108 H 20 138/93 08/19/18 17:06 98.7 F 101 H 18 119/80 Pulse Ox 08/20/18 11:09 97 08/20/18 08:00 08/20/18 07:57 97 08/20/18 04:00 96 08/20/18 00:00 97 08/19/18 20:00 96 08/19/18 19:55 97 08/19/18 18:53 97 08/19/18 17:06 98 Intake and Output 08/19/18 08/20/18 08/20/18 22:59 06:59 14:59 Other: Voiding Method Toilet Toilet Toilet # Voids 2 1 Weight 86.183 kg Head normocephalic Neck supple Lungs clear to auscultation bilaterally no wheezing or crackles Heart regular rate and rhythm S1-S2, no rub or gallop Abdomen is soft nontender nondistended positive bowel sounds no hepatosplenomegaly Extremities no edema Neuro alert and orientated to 3 Results CBC & Chem 7: 08/20/18 05:23 08/20/18 05:23 Labs: Abnormal Lab Results - Last 24 Hours (Table) 08/19/18 08/19/18 08/19/18 Range/Units 17:36 17:36 21:46 RBC 3.17 L (3.80-5.40) m/uL Hgb 7.6 L (11.4-16.0) gm/dL Hct 24.5 L (34.0-46.0) % MCV 77.3 L (80.0-100.0) fL MCH 23.9 L (25.0-35.0) pg MCHC 30.9 L (31.0-37.0) g/dL RDW 16.1 H (11.5-15.5) % Glucose 66 L (74-99) mg/dL POC Glucose (mg/dL) 134 H (75-99) mg/dL 08/20/18 08/20/18 08/20/18 Range/Units 05:23 05:23 06:46 RBC 2.82 L (3.80-5.40) m/uL Hgb 6.9 L* (11.4-16.0) gm/dL Hct 22.2 L (34.0-46.0) % MCV 78.6 L (80.0-100.0) fL MCH 24.3 L (25.0-35.0) pg MCHC 30.9 L (31.0-37.0) g/dL RDW 16.1 H (11.5-15.5) % Glucose 203 H (74-99) mg/dL POC Glucose (mg/dL) 234 H (75-99) mg/dL Thrombosis Risk Factor Assmnt - Choose All That Apply Any of the Below Risk Factors Present?: Yes Each Factor Represents 1 point: Age 41-60 years Other Risk Factors: No Thrombosis Risk Factor Assessment Total Risk Factor Score: 1 Thrombosis Risk Factor Assessment Level: Low Risk Assessment and Plan Assessment: 1. Chest pain or shortness breath. Chest x-ray completed showing no acute cardiopulmonary process. EKG showing normal sinus rhythm. Low voltage QRS. Nonspecific ST and T-wave abnormality. Troponins negative 3. Cardiology services have been consulted. 2. Anemia. Patient's hemoglobin on admit 7.6. This a.m. hemoglobin 6.9. She does report she's been having epistaxis frequently at home over the past month. Will transfuse 1 unit of PRBCs. Iron studies have been ordered. Will consult oncology services. Will also consult GI services. Will order stool for occult blood 3. History of breast cancer. Patient was diagnosed back in 2013 and underwent partial meniscectomy with chemo and radiation. Patient does follow with oncology services 4. History of asthma 5. History of GERD 6. History of arthritis 7. History of anxiety and depression. Home meds reordered 8. History of diabetes mellitus. Pulmonate hold sliding scale insulin added DVT prophylaxis SCDs due to anemia. GI prophylaxis Protonix Time with Patient: Greater than 30 (Greater than 60% of the total time spent in counseling and coordination of care. I performed an examination of the patient and discussed their management with the Nurse Practitioner. I have reviewed the Nurse Practitioner's notes and agree with the documented findings and plan of care)
[2018-08-20] MEDS: INSULIN ASPART (NovoLOG) 100 UNIT/ML VIAL SQ SCH ×3 (12:32→21:15)
--- NOTE | 2018-08-20 13:03 | P.CONS ---
History of Present Illness - Reason for Consult Consult date: 08/20/18 anemia Requesting physician: Alex Raza - Chief Complaint Epistaxis weakness - History of Present Illness 57-year-old female history of breast cancer admitted with weakness chest pain the last few months. Patient's he should have daily episodes of epistaxis lasting as long as 15 minutes and this is been intermittently ongoing for the last few months. Consult requested for anemia. Patient denies overt bleeding such as hematemesis hematochezia melena. Patient states she has been swallowing a lot of blood over the past week secondary to her nosebleeds. No aspirin or antiplatelet medications. She occasionally takes Excedrin for migraine and took a few doses of Motrin the last few days for arthritic pain. No history GI bleed. Her memory last EGD colonoscopy was 3-4 years ago does not remember the results. Admission hemoglobin 7.6 MCV 77. Platelet 367. White count 7.6. Hemoglobin today 6.9 receiving blood transfusion. No epistaxis today. BUN 13. Previous hemoglobin January 2018 was 13. Denies epigastric or abdominal pain. Chest x-ray no acute cardio pulmonary process. Review of Systems Constitutional: Denies fever, chills, sweats, weight gain, or loss. HEENT: Negative for migraines, blurred vision or loss, earaches, drainage, tinnitus, oral mucosal lesions, dysphagia, or odynophagia. CARDIAC: Admitted with chest pain, denies arrhythmias, or palpitation. RESPIRATORY: Negative for shortness of breath, hemoptysis, cough, or sputum production. GI: See HPI for pertinent findings. : Negative for hematuria, urgency, frequency, polyuria, or dysuria. GYNc: Denies possibility of . Negative vaginal discharge. MUSCULOSKELETAL: Negative for muscle aches, swelling, arthritis, and arthralgias. NEUROLOGIC: Negative for stroke or TIA. ENDOCRINE: Negative for thyroid problems. SKIN: Negative for rash or itching. PSYCHIATRIC: Negative history for depression and anxiety Past Medical History Past Medical History: Asthma, Cancer, Diabetes Mellitus, GERD/Reflux, Osteoarthritis (OA), Syncope, Thyroid Disorder Additional Past Medical History / Comment(s): RLS, NIDDM type II, diverticular dx, syncope with blood draw once, migraines, breast cancer with surgery/chemo and radiation (2013), hypothyroid, insomnia, heart cath 2017 History of Any Multi-Drug Resistant Organisms: None Reported Past Surgical History: Breast Surgery, Tonsillectomy Additional Past Surgical History / Comment(s): R breast bx, R breast partial mastectomy, R breast precancerous lesion removed, EGD x2, colonoscopy. Past Anesthesia/Blood Transfusion Reactions: No Reported Reaction Past Psychological History: Anxiety, Depression Additional Psychological History / Comment(s): Pt states she is on medication for depression and it is working well for her. She is independent. She lives at home with her spouse and children. Smoking Status: Former smoker Past Alcohol Use History: None Reported Additional Past Alcohol Use History / Comment(s): Pt states she smoked for one yr-age 19 to age 20yrs. Past Drug Use History: None Reported - Past Family History Mother Family Medical History: Cancer, Diabetes Mellitus Additional Family Medical History / Comment(s): Mother had breast cancer. She is 75 yrs old. Father Family Medical History: No Reported History, Cancer Additional Family Medical History / Comment(s): Father is healthy and is 79yrs old, prostate CA, bladder CA Brother(s) Family Medical History: Cancer, Myocardial Infarction ([place]) Additional Family Medical History / Comment(s): Surgery throat CA Medications and Allergies Home Medications Medication Instructions Recorded Confirmed Type Zolpidem Tartrate 5 mg PO HS PRN 04/10/16 08/19/18 History metFORMIN HCL 500 mg PO AC-TID 04/10/16 08/19/18 History ARIPiprazole [Abilify] 5 mg PO DAILY 09/24/17 08/19/18 History Citalopram Hydrobromide [CeleXA] 40 mg PO DAILY 09/24/17 08/19/18 History Oxybutynin Chloride [Ditropan XL] 15 mg PO DAILY 09/24/17 08/19/18 History Pantoprazole [Protonix] 40 mg PO DAILY 09/24/17 08/19/18 History Nitroglycerin Sl Tabs [Nitrostat] 0.4 mg SUBLINGUAL Q5M PRN #25 tab 09/25/17 08/19/18 Rx ALPRAZolam [Xanax] 0.25 mg PO HS 11/15/17 08/19/18 History Ibuprofen [Motrin] 600 mg PO Q8HR PRN #24 tab 11/15/17 08/19/18 Rx rOPINIRole HCL [Requip] 1 mg PO BID 11/15/17 08/19/18 History Anastrozole [Arimidex] 1 mg PO DAILY 08/19/18 08/19/18 History Levothyroxine Sodium [Synthroid] 137 mcg PO DAILY 08/19/18 08/19/18 History glipiZIDE [Glucotrol] 5 mg PO BID 08/19/18 08/19/18 History Allergies Allergy/AdvReac Type Severity Reaction Status Date / Time Penicillins Allergy Severe Anaphylaxis Verified 08/19/18 18:59 adhesive tape Allergy Rash/Hives Verified 08/19/18 18:59 prochlorperazine Allergy Confusion Verified 08/19/18 18:59 [From Compazine] Physical Exam Vitals: Vital Signs Temp Pulse Pulse Resp BP BP BP 08/20/18 12:53 98.4 F 100 16 121/60 08/20/18 11:09 98.4 F 100 16 121/60 08/20/18 08:00 79 18 08/20/18 07:57 98.7 F 79 18 97/62 08/20/18 04:00 98.6 F 95 18 103/64 08/20/18 00:00 98.1 F 103 H 18 122/78 08/19/18 20:00 98.2 F 97 18 118/83 08/19/18 19:55 98.5 F 95 18 110/80 08/19/18 18:53 108 H 20 138/93 08/19/18 17:06 98.7 F 101 H 18 119/80 Pulse Ox 08/20/18 12:53 08/20/18 11:09 97 08/20/18 08:00 08/20/18 07:57 97 08/20/18 04:00 96 08/20/18 00:00 97 08/19/18 20:00 96 08/19/18 19:55 97 08/19/18 18:53 97 08/19/18 17:06 98 Intake and Output 08/19/18 08/20/18 08/20/18 22:59 06:59 14:59 Intake Total 0 Balance 0 Intake: Blood Product 0 Rc As-1 Unit 0 [id number] Other: Voiding Method Toilet Toilet Toilet # Voids 2 1 Weight 86.183 kg General appearance: The patient is alert, oriented, in no acute distress. HET: Head is normocephalic and atraumatic. Pupils are equal and reactive. Oropharynx is clear without lesions. Neck: Supple without lymphadenopathy. Trachea midline. Heart: S1 S2. Regular rate and rhythm. Lungs: No crackles or wheezes are heard. Abdomen: Soft, nontender, nondistended with bowel sounds. No peritoneal signs. No palpable organomegaly or masses. Extremities: Normal skin color and turgor. No cyanosis, rash, ulceration, clubbing, or edema. Radial and pedal pulses are 2/4 bilaterally. Neurological: No focal deficits. Strength and sensation are grossly intact. Results CBC & Chem 7: 08/21/18 03:24 08/21/18 03:24 Labs: Abnormal Lab Results - Last 24 Hours (Table) 08/19/18 08/19/18 08/19/18 Range/Units 17:36 17:36 21:46 RBC 3.17 L (3.80-5.40) m/uL Hgb 7.6 L (11.4-16.0) gm/dL Hct 24.5 L (34.0-46.0) % MCV 77.3 L (80.0-100.0) fL MCH 23.9 L (25.0-35.0) pg MCHC 30.9 L (31.0-37.0) g/dL RDW 16.1 H (11.5-15.5) % Glucose 66 L (74-99) mg/dL POC Glucose (mg/dL) 134 H (75-99) mg/dL Crossmatch 08/20/18 08/20/18 08/20/18 Range/Units 05:23 05:23 06:46 RBC 2.82 L (3.80-5.40) m/uL Hgb 6.9 L* (11.4-16.0) gm/dL Hct 22.2 L (34.0-46.0) % MCV 78.6 L (80.0-100.0) fL MCH 24.3 L (25.0-35.0) pg MCHC 30.9 L (31.0-37.0) g/dL RDW 16.1 H (11.5-15.5) % Glucose 203 H (74-99) mg/dL POC Glucose (mg/dL) 234 H (75-99) mg/dL Crossmatch 08/20/18 08/20/18 Range/Units 09:23 11:38 RBC (3.80-5.40) m/uL Hgb (11.4-16.0) gm/dL Hct (34.0-46.0) % MCV (80.0-100.0) fL MCH (25.0-35.0) pg MCHC (31.0-37.0) g/dL RDW (11.5-15.5) % Glucose (74-99) mg/dL POC Glucose (mg/dL) 175 H (75-99) mg/dL Crossmatch See Detail Chest x-ray: report reviewed (Dr. Pedro) Assessment and Plan (1) Acute blood loss anemia Narrative/Plan: 57-year-old female who presents with acute symptomatic anemia chest pain with daily episodes of epistaxis over the last few weeks intermittently over last few months. Component of acute blood loss anemia most likely from epistaxis. Presently no obvious GI bleeding such as hematemesis hematochezia melena. No history of GI bleed. EGD colonoscopy 2-3 years ago to her memory was unremarkable. Current Visit: Yes Status: Acute Code(s): D62 - ACUTE POSTHEMORRHAGIC ANEMIA SNOMED Code(s): 620157194 (2) Epistaxis Current Visit: Yes Status: Acute Code(s): R04.0 - EPISTAXIS SNOMED Code(s): 037626248 (3) Chest pain Current Visit: Yes Status: Acute Code(s): R07.9 - CHEST PAIN, UNSPECIFIED SNOMED Code(s): 33214103 Plan: 1. FOBT was requested however most likely will be positive patient has been swallowing blood daily from epistaxis episodes. 2. Continue monitor CBC. No plans for inpatient endoscopy at this time anemia most likely from epistaxis not GI source. Diet as tolerated. We'll follow with you. We'll review previous endoscopic findings and placed in chart for review. Thank you for this kind referral and the opportunity to participate in the care of your patient. This consultation was discussed with Dr. Pedro. The impression and plan of care have been directed as dictated.
--- NOTE | 2018-08-20 14:07 | P.CRDCN ---
History of Present Illness Consult date: 08/20/18 Requesting physician: Alex Raza Chief complaint: Chest pain, epistaxis History of present illness: This is a 57-year-old female with history of diabetes, hyperlipidemia, GERD, prior breast cancer, hypothyroidism, osteoarthritis, who presented to the hospital after being referred by her primary care physician, because of a low hemoglobin. According to the patient, she states that she's been having epistax is at home, at times lasting up to 20 minutes to half hour in duration. She was at her primary care doctor's office, had been explaining to him that she been spearing taking intermittent chest pressure and heaviness with associated shortness of breath, he did some lab work, revealed that the hemoglobin was quite low and for this reason patient was referred to come to the hospital for admission. Chest x-ray on admission did not reveal any acute cardiopulmonary process. EKG showed a normal sinus rhythm with nonspecific ST-T wave changes noted . These similar changes have been noted in the past. In September 2017, patient had presented to the hospital with some chest discomfort, underwent a st ress test which came back positive for reversible ischemia, patient also had T wave inversion noted on that admission. She underwent a cardiac catheterization on that admission which revealed non-obstructive coronary artery disease. Chest x-ray performed on admission did not reveal any acute cardiopulmonary process. Blood pressure 116/60 with a heart rate in the 80s, 97% on room air. Laboratory data was reviewed, white blood cell count 7.6 on admission hemoglobin 7.6, platelet count 267. Today's labs, hemoglobin 6.9. Sodium 137, potassium 4.5, BUN 14 and creatinine 0.7. Troponins negative 3. Patient is scheduled today to receive a blood transfusion. Past Medical History Past Medical History: Asthma, Cancer, Diabetes Mellitus, GERD/Reflux, Os teoarthritis (OA), Syncope, Thyroid Disorder Additional Past Medical History / Comment(s): RLS, NIDDM type II, diverticular dx, syncope with blood draw once, migraines, breast cancer with surgery/chemo and radiation (2013), hypothyroid, insomnia, heart cath 2017 History of Any Multi-Drug Resistant Organisms: None Reported Past Surgical History: Breast Surgery, Tonsillectomy Additional Past Surgical History / Comment(s): R breast bx, R breast partial mastectomy, R breast precancerous lesion removed, EGD x2, colonoscopy. Past Anesthesia/Blood Transfusion Reactions: No Reported Reaction Past Psychological History: Anxiety, Depression Additional Psychological History / Comment(s): Pt states she is on medication for depression and it is working well for her. She is independent. She lives at home with her spouse and children. Smoking Status: Former smoker Past Alcohol Use History: None Reported Additional Past Alcohol Use History / Comment(s): Pt states she smoked for one yr-age 19 to age 20yrs. Past Drug Use History: None Reported - Past Family History Mother Family Medical History: Cancer, Diabetes Mellitus Additional Family Medical History / Comment(s): Mother had breast cancer. She is 75 yrs old. Father Family Medical History: No Reported History, Cancer Additional Family Medical History / Comment(s): Father is healthy and is 79yrs old, prostate CA, bladder CA Brother(s) Family Medical History: Cancer, Myocardial Infarction ([place]) Additional Family Medical History / Comment(s): Surgery throat CA Medications and Allergies Home Medications Medication Instructions Recorded Confirmed Type Zolpidem Tartrate 5 mg PO HS PRN 04/10/16 08/19/18 History metFORMIN HCL 500 mg PO AC-TID 04/10/16 08/19/18 History ARIPiprazole [Abilify] 5 mg PO DAILY 09/24/17 08/19/18 History Citalopram Hydrobromide [CeleXA] 40 mg PO DAILY 09/24/17 08/19/18 History Oxybutynin Chloride [Ditropan XL] 15 mg PO DAILY 09/24/17 08/19/18 History Pantoprazole [Protonix] 40 mg PO DAILY 09/24/17 08/19/18 History Nitroglycerin Sl Tabs [Nitrostat] 0.4 mg SUBLINGUAL Q5M PRN #25 tab 09/25/17 08/19/18 Rx ALPRAZolam [Xanax] 0.25 mg PO HS 11/15/17 08/19/18 History Ibuprofen [Motrin] 600 mg PO Q8HR PRN #24 tab 11/15/17 08/19/18 Rx rOPINIRole HCL [Requip] 1 mg PO BID 11/15/17 08/19/18 History Anastrozole [Arimidex] 1 mg PO DAILY 08/19/18 08/19/18 History Levothyroxine Sodium [Synthroid] 137 mcg PO DAILY 08/19/18 08/19/18 History glipiZIDE [Glucotrol] 5 mg PO BID 08/19/18 08/19/18 History Allergies Allergy/AdvReac Type Severity Reaction Status Date / Time Penicillins Allergy Severe Anaphylaxis Verified 08/19/18 18:59 adhesive tape Allergy Rash/Hives Verified 08/19/18 18:59 prochlorperazine Allergy Confusion Verified 08/19/18 18:59 [From Compazine] Physical Exam Vitals: Vital Signs Temp Pulse Pulse Resp BP BP BP 08/20/18 13:02 98.5 F 80 16 111/69 08/20/18 12:53 98.4 F 100 16 121/60 08/20/18 11:09 98.4 F 100 16 121/60 08/20/18 08:00 79 18 08/20/18 07:57 98.7 F 79 18 97/62 08/20/18 04:00 98.6 F 95 18 103/64 08/20/18 00:00 98.1 F 103 H 18 122/78 08/19/18 20:00 98.2 F 97 18 118/83 08/19/18 19:55 98.5 F 95 18 110/80 08/19/18 18:53 108 H 20 138/93 08/19/18 17:06 98.7 F 101 H 18 119/80 Pulse Ox 08/20/18 13:02 98 08/20/18 12:53 08/20/18 11:09 97 08/20/18 08:00 08/20/18 07:57 97 08/20/18 04:00 96 08/20/18 00:00 97 08/19/18 20:00 96 08/19/18 19:55 97 08/19/18 18:53 97 08/19/18 17:06 98 Intake and Output 08/19/18 08/20/18 08/20/18 22:59 06:59 14:59 Intake Total 0 Balance 0 Intake: Blood Product 0 Rc As-1 Unit 0 [id number] Other: Voiding Method Toilet Toilet Toilet # Voids 2 1 Weight 86.183 kg PHYSICAL EXAMINATION: GENERAL: 57-year-old female in no acute distress at the time of my examination HEENT: Head is atraumatic, normocephalic. Pupils equal, round. Sclera anicteric. Conjunctiva are clear. Mucous membranes of the mouth are moist. Neck is supple. There is no elevated jugular venous pressure. No carotid bruit is heard. HEART EXAMINATION: Heart S1, S2 normal. No murmur or gallop heard. CHEST EXAMINATION: Lungs are clear to auscultation and precussion. No chest wall tenderness is noted on palpation or with deep breathing. ABDOMEN: Soft, nontender. Bowel sounds are heard. No organomegaly noted. EXTREMITIES: 2+ peripheral pulses with no evidence of peripheral edema and no calf tenderness noted. NEUROLOGIC patient is awake, alert and oriented 3 . . Results 08/20/18 05:23 08/20/18 05:23 Cardiac Enzymes 08/19/18 08/19/18 08/20/18 Range/Units 17:36 23:04 05:23 AST 19 (14-36) U/L Troponin I <0.012 <0.012 (0.000-0.034) ng/mL 08/20/18 Range/Units 05:23 AST (14-36) U/L Troponin I <0.012 (0.000-0.034) ng/mL CBC 08/19/18 08/20/18 Range/Units 17:36 05:23 WBC 7.6 7.8 (3.8-10.6) k/uL RBC 3.17 L 2.82 L (3.80-5.40) m/uL Hgb 7.6 L 6.9 L* (11.4-16.0) gm/dL Hct 24.5 L 22.2 L (34.0-46.0) % Plt Count 367 336 (150-450) k/uL Comprehensive Metabolic Panel 08/19/18 08/20/18 Range/Units 17:36 05:23 Sodium 139 137 (137-145) mmol/L Potassium 4.3 4.5 (3.5-5.1) mmol/L Chloride 105 104 (98-107) mmol/L Carbon Dioxide 26 25 (22-30) mmol/L BUN 13 14 (7-17) mg/dL Creatinine 0.70 0.76 (0.52-1.04) mg/dL Glucose 66 L 203 H (74-99) mg/dL Calcium 9.8 9.3 (8.4-10.2) mg/dL AST 19 (14-36) U/L ALT 30 (9-52) U/L Alkaline Phosphatase 76 (38-126) U/L Total Protein 6.3 (6.3-8.2) g/dL Albumin 3.6 (3.5-5.0) g/dL Current Medications Generic Name Dose Route Start Last Admin Trade Name Freq PRN Reason Stop Dose Admin Acetaminophen 650 mg 08/20/18 08:28 Tylenol Tab PO Q6HR PRN Fever and/ or Pain Alprazolam 0.25 mg 08/20/18 21:00 Xanax PO HS ODESSA Anastrozole 1 mg 08/20/18 09:00 08/20/18 08:59 Arimidex PO 1 mg DAILY ODESSA Administration Aripiprazole 5 mg 08/20/18 09:00 08/20/18 08:59 Abilify PO 5 mg DAILY ODESSA Administration Citalopram Hydrobromide 40 mg 08/20/18 09:00 08/20/18 08:58 Celexa PO 40 mg DAILY ODESSA Administration Insulin Aspart 0 unit 08/20/18 12:30 08/20/18 12:32 Novolog SQ 2 unit ACHS ODESSA Administration Protocol Levothyroxine Sodium 137 mcg 08/20/18 09:00 08/20/18 08:59 Synthroid PO 137 mcg DAILY@0630 ODESSA Administration Naloxone HCl 0.2 mg 08/19/18 19:24 Narcan IV Q2M PRN Opioid Reversal Ondansetron HCl 4 mg 08/20/18 08:28 Zofran IVP Q6HR PRN Vomiting Oxybutynin Chloride 15 mg 08/20/18 09:00 08/20/18 08:59 Ditropan Xl PO 15 mg DAILY ODSESA Administration Pantoprazole Sodium 40 mg 08/20/18 09:00 08/20/18 09:03 Protonix PO 40 mg [id number] ODESSA Administration Ropinirole HCl 1 mg 08/20/18 09:00 08/20/18 08:58 Requip PO 1 mg BID ODESSA Administration Zolpidem Tartrate 5 mg 08/20/18 08:24 Ambien PO HS PRN Insomnia Intake and Output 08/19/18 08/20/18 08/20/18 22:59 06:59 14:59 Intake Total 0 Balance 0 Intake: Blood Product 0 Rc As-1 Unit 0 [id number] Other: Voiding Method Toilet Toilet Toilet # Voids 2 1 Weight 86.183 kg 08/20/18 05:23 08/20/18 05:23 EKG Interpretations (text) EKG shows normal sinus rhythm with nonspecific T-wave changes similar to prior EKGs. Assessment and Plan Plan: Assessment and plan #1 Symptoms of chest discomfort with mild associated shortness of breath, EKG sh ows normal sinus rhythm with no acute changes. Troponins are negative 3, not suggestive of acute coronary syndrome, could be secondary to anemia. Patient did undergo cardiac catheterization in 2017 which revealed normal coronary arteries. #2 diabetes #3 hyperlipidemia #4 GERD #5 anemia with a hemoglobin of 6.9. #6 hypothyroidism Plan We will obtain a repeat echocardiogram with Doppler study. Patient's chest pain likely secondary to anemia. Would recommend to start the patient on a statin being that she is diabetic. Patient will receive blood transfusion, as an outpatient we recommend that she follow-up in the office. DNP note has been reviewed, I agree with a documented findings and plan of care. Patient was seen and examined.
--- NOTE | 2018-08-20 15:59 | ECHOF ---
Referral Reason:chest pain MEASUREMENTS -------- HEIGHT: 167.6 cm WEIGHT: 86.2 kg BP: 125/80 RVIDd: 2.6 cm (< 3.3) IVSd: 1.1 cm (0.6 - 1.1) LVIDd: 4.1 cm (3.9 - 5.3) LVPWd: 1.2 cm (0.6 - 1.1) IVSs: 1.5 cm LVIDs: 2.7 cm LVPWs: 1.7 cm LA Diam: 2.9 cm (2.7 - 3.8) LAESV Index (A-L): 22.36 ml/m Ao Diam: 3.1 cm (2.0 - 3.7) AV Cusp: 2.1 cm (1.5 - 2.6) MV EXCURSION: 22.451 mm (> 18.000) MV EF SLOPE: 139 mm/s (70 - 150) EPSS: 0.7 cm MV E Magan: 0.82 m/s MV DecT: 256 ms MV A Magan: 0.74 m/s MV E/A Ratio: 1.10 FINDINGS -------- Sinus rhythm. This was a technically adequate study. The left ventricular size is normal. There is borderline concentric left ventricular hypertrophy. Overall left ventricular systolic function is normal with, an EF between 60 - 65 %. The right ventricle is normal in size. Normal LA size by volume 22+/-6 ml/m2. The right atrium is normal in size. The aortic valve is trileaflet and appears structurally normal. The mitral valve is normal. The tricuspid valve appears structurally normal. Trace/mild (physiologic) pulmonic regurgitation. The aortic root size is normal. Normal inferior vena cava with normal inspiratory collapse consistent with estimated right atrial pre ssure of 5 mmHg. There is no pericardial effusion. CONCLUSIONS -------- 1. Sinus rhythm. 2. This was a technically adequate study. 3. The left ventricular size is normal. 4. There is borderline concentric left ventricular hypertrophy. 5. Overall left ventricular systolic function is normal with, an EF between 60 - 65 %. 6. The right ventricle is normal in size. 7. Normal LA size by volume 22+/-6 ml/m2. 8. The right atrium is normal in size. 9. The aortic valve is trileaflet and appears structurally normal. 10. The mitral valve is normal. 11. The tricuspid valve appears structurally normal. 12. Trace/mild (physiologic) pulmonic regurgitation. 13. The aortic root size is normal. 14. Normal inferior vena cava with normal inspiratory collapse consistent with estimated right atrial pressure of 5 mmHg. 15. There is no pericardial effusion. MANAGER ENERGY: Mirna Garcia RDCS
[2018-08-20 16:28] LABS: Glucose,Whole Blood 222 mg/dL (75-99)
[2018-08-20 16:37] LABS: Anisocytosis Slight; Basophils % (A) 1 %; Eosinophils # (A) 0.2 k/uL (0-0.7); Eosinophils % (A) 2 %; HCT 28.7 % (34.0-46.0); Hypochromasia Marked; Lymphocytes # (A) 2.1 k/uL (1.0-4.8); Lymphocytes % (A) 26 %; MCH 24.7 pg (25.0-35.0); MCHC 30.4 g/dL (31.0-37.0); MCV 81.4 fL (80.0-100.0); Mean Platelet Volume 6.3; Monocytes # (A) 0.3 k/uL (0-1.0); Monocytes % (A) 4 %; Neutrophils # (A) 5.2 k/uL (1.3-7.7); Neutrophils % (A) 66 %; Platelet Count 342 k/uL (150-450); Poikilocytosis Slight; RBC 3.53 m/uL (3.80-5.40); RDW 16.6 % (11.5-15.5); WBC 7.9 k/uL (3.8-10.6)
[2018-08-20 16:41] LABS: HGB 8.7 gm/dL (11.4-16.0)
[2018-08-20 16:51] LABS: Iron Saturation 3.23 (12.00-45.00)
--- NOTE | 2018-08-20 18:04 | P.CONS ---
History of Present Illness - Reason for Consult Consult date: 08/20/18 Anemia Requesting physician: Lorin Barrett - Chief Complaint epistaxis - History of Present Illness Ms. Aranda is a pleasant female who is known to our practice for history of breast cancer. She follows with Dr. Garner. She was originally diagnosed with stage 2 breast cancer in December 2011. On original presentation she underwent a lumpectomy of her right axillary mass which resulted as a DCIS. The tumor was ER, [place], HER2(? - per office note although testing HER2 on DCIS is not common as it may provide false positives) positive. She underwent four cycles of TCH, with poor toleration described with extreme fatigue and nausea. Bone Scan and MRI Brain in September 2012 - Negative for metastatic Disease. 10/30/12 - Completed adjuvant radiation and Tamoxifen was initiated in June - Bone scan and MRI Brain Negative for metastatic disease. On 02/24/13 - she completed one year of herceptin 03/11/13 - MRI Lumbar Spine negative for metastatic disease, although showed arthritis. June 2017 - Bone density revealed significant osteopenia and alendronate was initated. She completed 5 years of tamoxifen in November 2017 and was switched to Anastrazole (aromatase inhibitor) in November of 2017 to continue until November 2022. She was last seen in our office in May 2018 She has a known history of diabetes, Hyperlipidemia, GERD, Hypothyroidism, OA. She wsa referred to the emergency department for anemia. According to patient she experienced epistaxis lasting 30-45 minutes at home and presented to PCP office. She complained of associated chest tightness, pressure and shortness of breath on presentation. Chest xray neg, EKG NEg, Hemoglobin 6.9 therefore Hematology has been consulted. Godwin states over the past few weeks she has had recurrent nose bleed and frontal headaches. Her last MRI brain 02/2018 did show evidence of sinus disease. Review of Systems A 14 point review of systems assessed and completed and all negative except HPI Past Medical History Past Medical History: Asthma, Cancer, Diabetes Mellitus, GERD/Reflux, Osteoarthritis (OA), Syncope, Thyroid Disorder Additional Past Medical History / Comment(s): RLS, NIDDM type II, diverticular dx, syncope with blood draw once, migraines, breast cancer with surgery/chemo and radiation (2013), hypothyroid, insomnia, heart cath 2016 History of Any Multi-Drug Resistant Organisms: None Reported Past Surgical History: Breast Surgery, Tonsillectomy Additional Past Surgical History / Comment(s): R breast bx, R breast partial mastectomy, R breast precancerous lesion removed, EGD x2, colonoscopy. Past Anesthesia/Blood Transfusion Reactions: No Reported Reaction Past Psychological History: Anxiety, Depression Additional Psychological History / Comment(s): Pt states she is on medication for depression and it is working well for her. She is independent. She lives at home with her spouse and children. Smoking Status: Former smoker Past Alcohol Use History: None Reported Additional Past Alcohol Use History / Comment(s): Pt states she smoked for one yr-age 19 to age 20yrs. Past Drug Use History: None Reported - Past Family History Mother Family Medical History: Cancer, Diabetes Mellitus Additional Family Medical History / Comment(s): Mother had breast cancer. She is 75 yrs old. Father Family Medical History: No Reported History, Cancer Additional Family Medical History / Comment(s): Father is healthy and is 79yrs old, prostate CA, bladder CA Brother(s) Family Medical History: Cancer, Myocardial Infarction ([place]) Additional Family Medical History / Comment(s): Surgery throat CA Medications and Allergies Home Medications Medication Instructions Recorded Confirmed Type Zolpidem Tartrate 5 mg PO HS PRN 04/10/16 08/19/18 History metFORMIN HCL 500 mg PO AC-TID 04/10/16 08/19/18 History ARIPiprazole [Abilify] 5 mg PO DAILY 09/24/17 08/19/18 History Citalopram Hydrobromide [CeleXA] 40 mg PO DAILY 09/24/17 08/19/18 History Oxybutynin Chloride [Ditropan XL] 15 mg PO DAILY 09/24/17 08/19/18 History Pantoprazole [Protonix] 40 mg PO DAILY 09/24/17 08/19/18 History Nitroglycerin Sl Tabs [Nitrostat] 0.4 mg SUBLINGUAL Q5M PRN #25 tab 09/25/17 08/19/18 Rx ALPRAZolam [Xanax] 0.25 mg PO HS 11/15/17 08/19/18 History Ibuprofen [Motrin] 600 mg PO Q8HR PRN #24 tab 11/15/17 08/19/18 Rx rOPINIRole HCL [Requip] 1 mg PO BID 11/15/17 08/19/18 History Anastrozole [Arimidex] 1 mg PO DAILY 08/19/18 08/19/18 History Levothyroxine Sodium [Synthroid] 137 mcg PO DAILY 08/19/18 08/19/18 History glipiZIDE [Glucotrol] 5 mg PO BID 08/19/18 08/19/18 History Allergies Allergy/AdvReac Type Severity Reaction Status Date / Time Penicillins Allergy Severe Anaphylaxis Verified 08/19/18 18:59 adhesive tape Allergy Rash/Hives Verified 08/19/18 18:59 prochlorperazine Allergy Confusion Verified 08/19/18 18:59 [From Compazine] Physical Exam Vitals: Vital Signs Temp Pulse Pulse Resp BP BP BP 08/20/18 16:00 98.3 F 83 16 111/66 08/20/18 15:09 98.4 F 83 16 111/66 08/20/18 13:33 98.2 F 84 16 116/62 08/20/18 13:03 98.5 F 80 16 111/69 08/20/18 13:02 98.5 F 80 16 111/69 08/20/18 12:53 98.4 F 100 16 121/60 08/20/18 11:09 98.4 F 100 16 121/60 08/20/18 08:00 79 18 08/20/18 07:57 98.7 F 79 18 97/62 08/20/18 04:00 98.6 F 95 18 103/64 08/20/18 00:00 98.1 F 103 H 18 122/78 08/19/18 20:00 98.2 F 97 18 118/83 08/19/18 19:55 98.5 F 95 18 110/80 08/19/18 18:53 108 H 20 138/93 Pulse Ox 08/20/18 16:00 96 08/20/18 15:09 96 08/20/18 13:33 97 08/20/18 13:03 08/20/18 13:02 98 08/20/18 12:53 08/20/18 11:09 97 08/20/18 08:00 08/20/18 07:57 97 08/20/18 04:00 96 08/20/18 00:00 97 08/19/18 20:00 96 03/19/19 19:55 97 08/19/18 18:53 97 Intake and Output 08/20/18 08/20/18 08/20/18 06:59 14:59 22:59 Intake Total 240 310 Balance 240 310 Intake: Oral 240 Blood Product 0 310 Rc As-1 Unit 0 310 [id number] Other: Voiding Method Toilet Toilet Toilet # Voids 2 1 Gen: No Acute Distress, Alert and oriented, Pale Head: NC/NT Neck Supple, Trachea midline No adenopathy on palpation supraclavicular, cervical or axillary Heart: Tachy, Reg Lungs: CTA Bilateral no increased effort Abdomen: Soft, ND, NT Extremities no edema or rashes Neuro: No sensory or motor deficits. Results CBC & Chem 7: 08/20/18 15:56 08/20/18 05:23 Labs: Abnormal Lab Results - Last 24 Hours (Table) 08/19/18 08/19/18 08/19/18 Range/Units 17:36 17:36 21:46 RBC 3.17 L (3.80-5.40) m/uL Hgb 7.6 L (11.4-16.0) gm/dL Hct 24.5 L (34.0-46.0) % MCV 77.3 L (80.0-100.0) fL MCH 23.9 L (25.0-35.0) pg MCHC 30.9 L (31.0-37.0) g/dL RDW 16.1 H (11.5-15.5) % Glucose 66 L (74-99) mg/dL POC Glucose (mg/dL) 134 H (75-99) mg/dL Iron (50-170) ug/dL Iron Saturation (12.00-45.00) Ferritin (10.0-291.0) ng/mL Crossmatch 08/20/18 08/20/18 08/20/18 Range/Units 05:23 05:23 06:46 RBC 2.82 L (3.80-5.40) m/uL Hgb 6.9 L* (11.4-16.0) gm/dL Hct 22.2 L (34.0-46.0) % MCV 78.6 L (80.0-100.0) fL MCH 24.3 L (25.0-35.0) pg MCHC 30.9 L (31.0-37.0) g/dL RDW 16.1 H (11.5-15.5) % Glucose 203 H (74-99) mg/dL POC Glucose (mg/dL) 234 H (75-99) mg/dL Iron (50-170) ug/dL Iron Saturation (12.00-45.00) Ferritin (10.0-291.0) ng/mL Crossmatch 08/20/18 08/20/18 08/20/18 Range/Units 09:23 09:23 11:38 RBC (3.80-5.40) m/uL Hgb (11.4-16.0) gm/dL Hct (34.0-46.0) % MCV (80.0-100.0) fL MCH (25.0-35.0) pg MCHC (31.0-37.0) g/dL RDW (11.5-15.5) % Glucose (74-99) mg/dL POC Glucose (mg/dL) 175 H (75-99) mg/dL Iron 13 L (50-170) ug/dL Iron Saturation 3.23 L (12.00-45.00) Ferritin 6.5 L (10.0-291.0) ng/mL Crossmatch See Detail 08/20/18 08/20/18 Range/Units 15:56 16:25 RBC 3.53 L (3.80-5.40) m/uL Hgb 8.7 L D (11.4-16.0) gm/dL Hct 28.7 L (34.0-46.0) % MCV (80.0-100.0) fL MCH 24.7 L (25.0-35.0) pg MCHC 30.4 L (31.0-37.0) g/dL RDW 16.6 H (11.5-15.5) % Glucose (74-99) mg/dL POC Glucose (mg/dL) 222 H (75-99) mg/dL Iron (50-170) ug/dL Iron Saturation (12.00-45.00) Ferritin (10.0-291.0) ng/mL Crossmatch Assessment and Plan Plan: Assessment and Recommendations: 1. Microcytic Anemia: - Secondary to Acute Blood Loss Anemia and Iron deficiency component - Recurrent Epistaxis over the past week - MRIs in past do reveal sinus disease and chronic changes - Recommend ENT Consultation and CT of Sinus - Will replace with IV Iron, she can complete these as outpatient 2. HX: Breast cancer Triple Positive in 2012 - Underwent Chemotherapy, Lumpectomy, Radiation and Adjuvant Herceptin for one year - Tamoxifen x5 years completed and currently receives arimidex and to continue until 2022. - Continue Arimidex Plan: - Reviewed GI Evaluation and their recs for outpatient work-up - It appears patients blood loss anemia is stemming from epistaxis so would further evaluate with ENT consultation and CT Sinus - She has had MRI brain in past as must monitor for recurrent triple positive disease as it may metastatise to brain - Defer CT imaging to ENT Physician Attest: I have completed the ful history and physical and developed the complete impression and plan, agree with above dictation, dictated as a scribe.
[2018-08-20 20:48] LABS: Glucose,Whole Blood 220 mg/dL (75-99)
[2018-08-20] MEDS ORDERED: ALPRAZolam 0.25 MG TAB PO SCH (21:00)
[2018-08-20] MEDS: SODIUM FERRIC GLUCONAT-SUCROSE 125 MG in SODIUM CHLORIDE 0.9% 100 ML IVPB SCH (21:15)
[2018-08-20] MEDS: OXYMETAZOLINE 0.05% NASL SPRAY 1 SPRAY BOTTLE NASAL SCH (21:29)
[2018-08-20] MEDS: ATORVASTATIN 40 MG TAB PO SCH ×2 (22:37→22:38)
[2018-08-20 23:45] VITALS: RESP 18
[2018-08-21 03:38] LABS: Anisocytosis Slight; Basophils % (A) 0 %; Eosinophils # (A) 0.3 k/uL (0-0.7); Eosinophils % (A) 3 %; HCT 27.2 % (34.0-46.0); HGB 8.2 gm/dL (11.4-16.0); Hypochromasia Moderate; Lymphocytes # (A) 1.7 k/uL (1.0-4.8); Lymphocytes % (A) 20 %; MCH 24.1 pg (25.0-35.0); MCHC 30.3 g/dL (31.0-37.0); MCV 79.5 fL (80.0-100.0); Mean Platelet Volume 7.6; Microcytosis Slight; Monocytes # (A) 0.3 k/uL (0-1.0); Monocytes % (A) 4 %; Neutrophils # (A) 6.3 k/uL (1.3-7.7); Neutrophils % (A) 73 %; Platelet Count 298 k/uL (150-450); Poikilocytosis Slight; RBC 3.42 m/uL (3.80-5.40); WBC 8.7 k/uL (3.8-10.6)
[2018-08-21 04:21] LABS: Albumin 3.5 g/dL (3.5-5.0); Potassium 4.7 mmol/L (3.5-5.1); Total Bilirubin 0.9 mg/dL (0.2-1.3); Total Protein 6.2 g/dL (6.3-8.2)
[2018-08-21 05:47] LABS: Glucose,Whole Blood 251 mg/dL (75-99)
[2018-08-21] MEDS: PANTOPRAZOLE 40 MG TABLET PO SCH (06:42)
[2018-08-21] MEDS: LEVOTHYROXINE 137 MCG TAB PO SCH (06:43)
[2018-08-21] MEDS: INSULIN ASPART (NovoLOG) 100 UNIT/ML VIAL SQ SCH ×2 (06:43→12:02)
[2018-08-21] MEDS: OXYBUTYNIN 15 MG TAB.ER.24 PO SCH (09:16)
[2018-08-21] MEDS: ANASTROZOLE 1 MG TAB PO SCH (09:16)
[2018-08-21] MEDS: CITALOPRAM HYDROBROMIDE 20 MG TAB PO SCH (09:16)
[2018-08-21] MEDS: ARIPiprazole 5 MG TAB PO SCH (09:16)
[2018-08-21] MEDS: SODIUM FERRIC GLUCONAT-SUCROSE 125 MG in SODIUM CHLORIDE 0.9% 100 ML IVPB SCH (09:17)
[2018-08-21] MEDS: OXYMETAZOLINE 0.05% NASL SPRAY 1 SPRAY BOTTLE NASAL SCH (09:20)
[2018-08-21 11:29] LABS: Glucose,Whole Blood 205 mg/dL (75-99)
--- NOTE | 2018-08-21 12:14 | P.PN ---
Subjective Progress Note Date: 08/21/18 Principal diagnosis: Epistaxis anemia Nosebleed last night lasted at least 20 minutes. Denies hematemesis hematochezia melena. Hemoglobin 8.2. FOBT positive. Objective - Vital Signs Vital signs: Vital Signs Temp 98.2 F 08/21/18 07:55 Pulse 82 08/21/18 07:55 Resp 18 08/21/18 07:55 BP 102/67 08/21/18 07:55 Pulse Ox 95 08/21/18 07:55 Intake & Output 08/20/18 08/21/18 08/21/18 18:59 06:59 18:59 Intake Total 550 720 240 Balance 550 720 240 Weight 85.7 kg Intake: Intake, IV Titration 100 Amount Sodium Ferric Gluconat- 100 Sucrose 125 mg In Sodium Chloride 0.9% 100 ml @ 100 mls/hr IVPB DAILY [facility] Rx#:[id number] Oral 240 240 Blood Product 310 620 Rc As-1 Unit 310 [id number] Rc As-1 Unit 310 [id number] Other: Voiding Method Toilet Toilet # Voids 1 1 - Exam General appearance: The patient is alert, oriented, in no acute distress. HET: Head is normocephalic and atraumatic. Pupils are equal and reactive. Oropharynx is clear without lesions. Neck: Supple without lymphadenopathy. Trachea midline. Heart: S1 S2. Regular rate and rhythm. Lungs: No crackles or wheezes are heard. Abdomen: Soft, nontender, nondistended with bowel sounds. No peritoneal signs. No palpable organomegaly or masses. Extremities: Normal skin color and turgor. No cyanosis, rash, ulceration, clubbing, or edema. Radial and pedal pulses are 2/4 bilaterally. Neurological: No focal deficits. Strength and sensation are grossly intact. - Labs CBC & Chem 7: 08/21/18 03:24 08/21/18 03:24 Labs: Abnormal Lab Results - Last 24 Hours (Table) 08/20/18 08/20/18 08/20/18 Range/Units 09:23 09:23 15:56 RBC 3.53 L (3.80-5.40) m/uL Hgb 8.7 L D (11.4-16.0) gm/dL Hct 28.7 L (34.0-46.0) % MCV (80.0-100.0) fL MCH 24.7 L (25.0-35.0) pg MCHC 30.4 L (31.0-37.0) g/dL RDW 16.6 H (11.5-15.5) % Sodium (137-145) mmol/L Glucose (74-99) mg/dL POC Glucose (mg/dL) (75-99) mg/dL Iron 13 L (50-170) ug/dL Iron Saturation 3.23 L (12.00-45.00) Ferritin 6.5 L (10.0-291.0) ng/mL Total Protein (6.3-8.2) g/dL Stool Occult Blood (Negative) Crossmatch See Detail 08/20/18 08/20/18 08/20/18 Range/Units 16:25 19:56 20:45 RBC (3.80-5.40) m/uL Hgb (11.4-16.0) gm/dL Hct (34.0-46.0) % MCV (80.0-100.0) fL MCH (25.0-35.0) pg MCHC (31.0-37.0) g/dL RDW (11.5-15.5) % Sodium (137-145) mmol/L Glucose (74-99) mg/dL POC Glucose (mg/dL) 222 H 220 H (75-99) mg/dL Iron (50-170) ug/dL Iron Saturation (12.00-45.00) Ferritin (10.0-291.0) ng/mL Total Protein (6.3-8.2) g/dL Stool Occult Blood Positive H (Negative) Crossmatch 08/21/18 08/21/18 08/21/18 Range/Units 03:24 03:24 05:45 RBC 3.42 L (3.80-5.40) m/uL Hgb 8.2 L (11.4-16.0) gm/dL Hct 27.2 L (34.0-46.0) % MCV 79.5 L (80.0-100.0) fL MCH 24.1 L (25.0-35.0) pg MCHC 30.3 L (31.0-37.0) g/dL RDW 17.0 H (11.5-15.5) % Sodium 134 L (137-145) mmol/L Glucose 259 H (74-99) mg/dL POC Glucose (mg/dL) 251 H (75-99) mg/dL Iron (50-170) ug/dL Iron Saturation (12.00-45.00) Ferritin (10.0-291.0) ng/mL Total Protein 6.2 L (6.3-8.2) g/dL Stool Occult Blood (Negative) Crossmatch 08/21/18 Range/Units 11:28 RBC (3.80-5.40) m/uL Hgb (11.4-16.0) gm/dL Hct (34.0-46.0) % MCV (80.0-100.0) fL MCH (25.0-35.0) pg MCHC (31.0-37.0) g/dL RDW (11.5-15.5) % Sodium (137-145) mmol/L Glucose (74-99) mg/dL POC Glucose (mg/dL) 205 H (75-99) mg/dL Iron (50-170) ug/dL Iron Saturation (12.00-45.00) Ferritin (10.0-291.0) ng/mL Total Protein (6.3-8.2) g/dL Stool Occult Blood (Negative) Crossmatch Assessment and Plan (1) Acute blood loss anemia Narrative/Plan: 57-year-old female who presents with acute symptomatic anemia chest pain with daily episodes of epistaxis over the last few weeks intermittently over last few months. Component of acute blood loss anemia most likely from epistaxis. Presently no obvious GI bleeding such as hematemesis hematochezia melena. No history of GI bleed. EGD colonoscopy 2-3 years ago to her memory was unremarkable. Current Visit: Yes Status: Acute Code(s): D62 - ACUTE POSTHEMORRHAGIC ANEMIA SNOMED Code(s): 417045446 (2) Epistaxis Current Visit: Yes Status: Acute Code(s): R04.0 - EPISTAXIS SNOMED Code(s): 725327592 (3) Chest pain Current Visit: Yes Status: Acute Code(s): R07.9 - CHEST PAIN, UNSPECIFIED SNOMED Code(s): 58760845 Plan: 1. FOBT positivity expected patient has been swallowing blood daily from epistaxis episodes. No clinical evidence to suggest acute GI bleed at this time. 2. Continue monitor CBC. No plans for inpatient endoscopy at this time anemia most likely from epistaxis not GI source. Diet as tolerated. We'll follow with you on an as-needed basis. ENT consult recommended. Assessment and plan a care discussed with Dr. Pedro
[2018-08-21 12:19] VITALS: BP 116/77; PULSE 83; TEMP 97.3
--- NOTE | 2018-08-21 12:32 | P.PN ---
Subjective Progress Note Date: 08/21/18 This is a 57-year-old female with history of diabetes, hyperlipidemia, GERD, prior breast cancer, hypothyroidism, osteoarthritis, who presented to the hospital after being referred by her primary care physician, because of a low hemoglobin. According to the patient, she states that she's been having epistaxis at home, at times lasting up to 20 minutes to half hour in duration. She was at her primary care doctor's office, had been explaining to him that she been spearing taking intermittent chest pressure and heaviness with associated shortness of breath, he did some lab work, revealed that the hemoglobin was quite low and for this reason patient was referred to come to the hospital for admission. Chest x-ray on admission did not reveal any acute cardiopulmonary process. EKG showed a normal sinus rhythm with nonspecific ST-T wave changes noted . These similar changes have been noted in the past. In September 2017, patient had presented to the hospital with some chest discomfort, underwent a stress test which came back positive for reversible ischemia, patient also had T wave inversion noted on that admission. She underwent a cardiac catheterization on that admission which revealed non-obstructive coronary artery disease. Chest x-ray performed on admission did not reveal any acute cardiopulmonary process. Blood pressure 116/60 with a heart rate in the 80s, 97% on room air. Laboratory data was reviewed, white blood cell count 7.6 on admission hemoglobin 7.6, platelet count 267. Today's labs, hemoglobin 6.9. Sodium 137, potassium 4.5, BUN 14 and creatinine 0.7. Troponins negative 3. Patient is scheduled today to receive a blood transfusion. 08/21/2018 Patient was seen and examined this morning, no further episodes of epistaxis. She had an echocardiogram with Doppler study performed which revealed a normal ejection fraction. Hemoglobin 8.2, stool positive for heme. Hemodynamically stable. Objective - Vital Signs Vital signs: Vital Signs Temp 97.3 F L 08/21/18 11:30 Pulse 83 08/21/18 11:30 Resp 18 08/21/18 11:30 BP 116/77 08/21/18 11:30 Pulse Ox 97 08/21/18 11:30 Intake & Output 08/20/18 08/21/18 08/21/18 18:59 06:59 18:59 Intake Total 550 720 240 Balance 550 720 240 Weight 85.7 kg Intake: Intake, IV Titration 100 Amount Sodium Ferric Gluconat- 100 Sucrose 125 mg In Sodium Chloride 0.9% 100 ml @ 100 mls/hr IVPB DAILY [facility] Rx#:[id number] Oral 240 240 Blood Product 310 620 Rc As-1 Unit 310 [id number] Rc As-1 Unit 310 [id number] Other: Voiding Method Toilet Toilet # Voids 1 1 - Exam PHYSICAL EXAMINATION: GENERAL: 57-year-old female in no acute distress at the time of my examination HEENT: Head is atraumatic, normocephalic. Pupils equal, round. Sclera anicteric. Conjunctiva are clear. Mucous membranes of the mouth are moist. Neck is supple. There is no elevated jugular venous pressure. No carotid bruit is heard. HEART EXAMINATION: Heart S1, S2 normal. No murmur or gallop heard. CHEST EXAMINATION: Lungs are clear to auscultation and precussion. No chest wall tenderness is noted on palpation or with deep breathing. ABDOMEN: Soft, nontender. Bowel sounds are heard. No organomegaly noted. EXTREMITIES: 2+ peripheral pulses with no evidence of peripheral edema and no calf tenderness noted. NEUROLOGIC patient is awake, alert and oriented 3 . - Labs CBC & Chem 7: 08/21/18 03:24 08/21/18 03:24 Labs: Abnormal Lab Results - Last 24 Hours (Table) 08/20/18 08/20/18 08/20/18 Range/Units 09:23 09:23 15:56 RBC 3.53 L (3.80-5.40) m/uL Hgb 8.7 L D (11.4-16.0) gm/dL Hct 28.7 L (34.0-46.0) % MCV (80.0-100.0) fL MCH 24.7 L (25.0-35.0) pg MCHC 30.4 L (31.0-37.0) g/dL RDW 16.6 H (11.5-15.5) % Sodium (137-145) mmol/L Glucose (74-99) mg/dL POC Glucose (mg/dL) (75-99) mg/dL Iron 13 L (50-170) ug/dL Iron Saturation 3.23 L (12.00-45.00) Ferritin 6.5 L (10.0-291.0) ng/mL Total Protein (6.3-8.2) g/dL Stool Occult Blood (Negative) Crossmatch See Detail 08/20/18 08/20/18 08/20/18 Range/Units 16:25 19:56 20:45 RBC (3.80-5.40) m/uL Hgb (11.4-16.0) gm/dL Hct (34.0-46.0) % MCV (80.0-100.0) fL MCH (25.0-35.0) pg MCHC (31.0-37.0) g/dL RDW (11.5-15.5) % Sodium (137-145) mmol/L Glucose (74-99) mg/dL POC Glucose (mg/dL) 222 H 220 H (75-99) mg/dL Iron (50-170) ug/dL Iron Saturation (12.00-45.00) Ferritin (10.0-291.0) ng/mL Total Protein (6.3-8.2) g/dL Stool Occult Blood Positive H (Negative) Crossmatch 08/21/18 08/21/18 08/21/18 Range/Units 03:24 03:24 05:45 RBC 3.42 L (3.80-5.40) m/uL Hgb 8.2 L (11.4-16.0) gm/dL Hct 27.2 L (34.0-46.0) % MCV 79.5 L (80.0-100.0) fL MCH 24.1 L (25.0-35.0) pg MCHC 30.3 L (31.0-37.0) g/dL RDW 17.0 H (11.5-15.5) % Sodium 134 L (137-145) mmol/L Glucose 259 H (74-99) mg/dL POC Glucose (mg/dL) 251 H (75-99) mg/dL Iron (50-170) ug/dL Iron Saturation (12.00-45.00) Ferritin (10.0-291.0) ng/mL Total Protein 6.2 L (6.3-8.2) g/dL Stool Occult Blood (Negative) Crossmatch 08/21/18 Range/Units 11:28 RBC (3.80-5.40) m/uL Hgb (11.4-16.0) gm/dL Hct (34.0-46.0) % MCV (80.0-100.0) fL MCH (25.0-35.0) pg MCHC (31.0-37.0) g/dL RDW (11.5-15.5) % Sodium (137-145) mmol/L Glucose (74-99) mg/dL POC Glucose (mg/dL) 205 H (75-99) mg/dL Iron (50-170) ug/dL Iron Saturation (12.00-45.00) Ferritin (10.0-291.0) ng/mL Total Protein (6.3-8.2) g/dL Stool Occult Blood (Negative) Crossmatch Assessment and Plan Plan: Assessment and plan #1 Symptoms of chest discomfort with mild associated shortness of breath, EKG shows normal sinus rhythm with no acute changes. Troponins are negative 3, not suggestive of acute coronary syndrome, could be secondary to anemia. Patient did undergo cardiac catheterization in 2017 which revealed normal coronary arteries. #2 diabetes #3 hyperlipidemia #4 GERD #5 anemia with a hemoglobin of 6.9. #6 hypothyroidism Plan Echocardiogram with Doppler study revealed a normal left ventricular systolic function. From our perspective, we will follow her along with you now on an as- needed basis only, we will make her a follow-up appointment with Dr. Shakila Bunn in the office in 3 weeks to a month. DNP note has been reviewed, I agree with a documented findings and plan of care. Patient was seen and examined.
--- NOTE | 2018-08-21 14:04 | P.DS ---
Providers Date of admission: 08/20/18 08:27 Expected date of discharge: 08/21/18 Attending physician: Alex Raza Consults: 08/20/18 08:22 Consult Physician Routine Consulting Provider: Flaco Charles Consult Reason/Comments: chest pain Do you want consulting provider notified?: Yes 08/20/18 09:02 Consult Physician Routine Consulting Provider: Memo Palomino Consult Reason/Comments: anemia Do you want consulting provider notified?: Yes 08/20/18 19:50 Consult Physician Routine Consulting Provider: Nato Lawson Consult Reason/Comments: Anemia r/t epistaxis Do you want consulting provider notified?: Yes, Notify in am Primary care physician: Alex Luz [facility] Course: Discharge diagnosis 1. Chest pain or shortness breath. Chest x-ray completed showing no acute cardiopulmonary process. EKG showing normal sinus rhythm. Low voltage QRS. Nonspecific ST and T-wave abnormality. Troponins negative 3. 2-D echo completed showing an EF of 60-65%. Patient did undergo cardiac catheterization in 2017 which revealed normal coronary arteries. Per cardiology patient has been cleared for discharge chest discomfort likely associated with Anemia. 2. Anemia related to epitaxisis. Patient's hemoglobin on admit 7.6. This a.m. hemoglobin 6.9. She does report she's been having epistaxis frequently at home over the past month. She received 2 units of PRBCs. Hemoglobin 8.2. Patient was seen by GI services, FOBT positive this is likely due from swallowing blood due to nosebleeds. No further workup per GI services. Patient was seen by ENT Dr. De Anda. Afrin has been prescribed. Patient will need to follow-up with ENT outpatient for further management and plan of care for patients epitaxsis. 3. History of breast cancer. Patient was diagnosed back in 2013 and underwent partial meniscectomy with chemo and radiation. Patient was seen by oncology services patient to continue follow-up outpatient for history of triple positive breast cancer. 4. History of asthma 5. History of GERD 6. History of arthritis 7. History of anxiety and depression. Home meds reordered 8. History of diabetes mellitus. Home meds resumed Hospital course This is a 57-year-old female patient who presented to the hospital complaining of chest pain. Patient reports that this chest pain intermittently occurring on and off for the past few months. Patient also reports shortness of breath with activity. On admission patient was found to have a hemoglobin of 7.6. Patient reports that she's been having frequent nosebleeds she goes through a whole roll of toilet paper to control the bleeding. Patient reports this is been intermittently occurring over the past month or so. Sometimes twice a day. Patient denies any signs of blood in her urine stool or emesis. Patient denies any abnormal bruising. Patient does have a history of breast cancer in which he follows with Dr. Garner, asthma, diabetes mellitus, GERD, osteoarthritis, hypothyroidism, anxiety and depression. Chest x-ray completed showing no acute cardiopulmonary process. Troponins negative 3. EKG completed showing normal sinus rhythm, low-voltage QRS. Repeat hemoglobin the same 6.9. Will transfuse 1 unit of PRBCs. Cardiology, GI services and hematology service is consulted. At this time patient denies chest pain or shortness of breath. Patient denies nausea vomiting or diarrhea. Patient denies any urinary burning or frequency On 08/21/2018 patient is alert and oriented 3. Patient received 2 units PRBCs with repeat hemoglobin 8.2. Patient was cleared for discharge from cardiology services chest pain likely due to anemia. Recommended patient be discharged on a statin. Patient was also seen by GI services for the patient's anemia. Patient did have positive stool call. Discussed with GI services likely from patient's swelling blood due to epitaxis. Patient was also seen by ENT Dr. De Anda. Patient was started on Afrin and patient to follow-up outpatient with ENT services for further management. At this time patient feels ready to go home. Patient denies chest pain or shortness of breath. Patient denies nausea vomiting or diarrhea. Patient denies any urinary burning or frequency I performed an examination of the patient and discussed their management with the Nurse Practitioner. I have reviewed the Nurse Practitioner's notes and agree with the documented findings and plan of care Patient Condition at Discharge: Stable Plan - Discharge Summary Discharge Rx Participant: Yes New Discharge Prescriptions: New Oxymetazoline 0.05% Nasl [place] [Afrin 0.05% Nasal [place]] 3 spray NASAL TID 30 Days #1 bottle Atorvastatin [Lipitor] 40 mg PO HS 30 Days #30 tab Continue metFORMIN HCL 500 mg PO AC-TID Zolpidem Tartrate 5 mg PO HS PRN PRN Reason: Insomnia Oxybutynin Chloride [Ditropan XL] 15 mg PO DAILY ARIPiprazole [Abilify] 5 mg PO DAILY Pantoprazole [Protonix] 40 mg PO DAILY Citalopram Hydrobromide [CeleXA] 40 mg PO DAILY Nitroglycerin Sl Tabs [Nitrostat] 0.4 mg SUBLINGUAL Q5M PRN #25 tab PRN Reason: Chest Pain rOPINIRole HCL [Requip] 1 mg PO BID ALPRAZolam [Xanax] 0.25 mg PO HS glipiZIDE [Glucotrol] 5 mg PO BID Anastrozole [Arimidex] 1 mg PO DAILY Levothyroxine Sodium [Synthroid] 137 mcg PO DAILY Discontinued Ibuprofen [Motrin] 600 mg PO Q8HR PRN #24 tab PRN Reason: Pain Discharge Medication List Zolpidem Tartrate 5 mg PO HS PRN 04/10/16 [History] metFORMIN HCL 500 mg PO AC-TID 04/10/16 [History] ARIPiprazole [Abilify] 5 mg PO DAILY 09/24/17 [History] Citalopram Hydrobromide [CeleXA] 40 mg PO DAILY 09/24/17 [History] Oxybutynin Chloride [Ditropan XL] 15 mg PO DAILY 09/24/17 [History] Pantoprazole [Protonix] 40 mg PO DAILY 09/24/17 [History] Nitroglycerin Sl Tabs [Nitrostat] 0.4 mg SUBLINGUAL Q5M PRN #25 tab 09/25/17 [Rx] ALPRAZolam [Xanax] 0.25 mg PO HS 11/15/17 [History] rOPINIRole HCL [Requip] 1 mg PO BID 11/15/17 [History] Anastrozole [Arimidex] 1 mg PO DAILY 08/19/18 [History] Levothyroxine Sodium [Synthroid] 137 mcg PO DAILY 08/19/18 [History] glipiZIDE [Glucotrol] 5 mg PO BID 08/19/18 [History] Atorvastatin [Lipitor] 40 mg PO HS 30 Days #30 tab 08/21/18 [Rx] Oxymetazoline 0.05% Nasl [place] [Afrin 0.05% Nasal [place]] 3 spray NASAL TID 30 Days #1 bottle 08/21/18 [Rx] Follow up Appointment(s)/Referral(s): Alex Raza MD [Primary Care Provider] - 08/29/18 11:00 am (Saturday) Nato Lawson DO [Doctor of Osteopathic Medicine] - 1 Week Patient Instructions/Handouts: Iron Rich Diet (DC), Anemia (DC) Activity/Diet/Wound Care/Special Instructions: Patient will need to be set up to see ENT per PCP Activity as tolerated Diet consistent carb Discharge Disposition: HOME SELF-CARE
--- NOTE | 2018-08-21 14:34 | P.PN ---
Subjective Progress Note Date: 08/21/18 Principal diagnosis: epistaxis ENT did evaluate and patients hemogl stable today 8.2, she can follow- up in [facility] for iron infusions Objective - Vital Signs Vital signs: Vital Signs Temp 97.3 F L 08/21/18 11:30 Pulse 83 08/21/18 11:30 Resp 18 08/21/18 11:30 BP 116/77 08/21/18 11:30 Pulse Ox 97 08/21/18 11:30 Intake & Output 08/20/18 08/21/18 08/21/18 18:59 06:59 18:59 Intake Total 550 720 480 Balance 550 720 480 Weight 85.7 kg Intake: Intake, IV Titration 100 Amount Sodium Ferric Gluconat- 100 Sucrose 125 mg In Sodium Chloride 0.9% 100 ml @ 100 mls/hr IVPB DAILY [facility] Rx#:[id number] Oral 240 480 Blood Product 310 620 Rc As-1 Unit 310 [id number] Rc As-1 Unit 310 [id number] Other: Voiding Method Toilet Toilet # Voids 1 1 - Exam Gen: No Acute Distress, Alert and oriented, Pale Head: NC/NT Neck Supple, Trachea midline No adenopathy on palpation supraclavicular, cervical or axillary Heart: Tachy, Reg Lungs: CTA Bilateral no increased effort Abdomen: Soft, ND, NT Extremities no edema or rashes Neuro: No sensory or motor deficits. - Labs CBC & Chem 7: 08/21/18 03:24 08/21/18 03:24 Labs: Abnormal Lab Results - Last 24 Hours (Table) 08/20/18 08/20/18 08/20/18 Range/Units 09:23 09:23 15:56 RBC 3.53 L (3.80-5.40) m/uL Hgb 8.7 L D (11.4-16.0) gm/dL Hct 28.7 L (34.0-46.0) % MCV (80.0-100.0) fL MCH 24.7 L (25.0-35.0) pg MCHC 30.4 L (31.0-37.0) g/dL RDW 16.6 H (11.5-15.5) % Sodium (137-145) mmol/L Glucose (74-99) mg/dL POC Glucose (mg/dL) (75-99) mg/dL Iron 13 L (50-170) ug/dL Iron Saturation 3.23 L (12.00-45.00) Ferritin 6.5 L (10.0-291.0) ng/mL Total Protein (6.3-8.2) g/dL Stool Occult Blood (Negative) Crossmatch See Detail 08/20/18 08/20/18 08/20/18 Range/Units 16:25 19:56 20:45 RBC (3.80-5.40) m/uL Hgb (11.4-16.0) gm/dL Hct (34.0-46.0) % MCV (80.0-100.0) fL MCH (25.0-35.0) pg MCHC (31.0-37.0) g/dL RDW (11.5-15.5) % Sodium (137-145) mmol/L Glucose (74-99) mg/dL POC Glucose (mg/dL) 222 H 220 H (75-99) mg/dL Iron (50-170) ug/dL Iron Saturation (12.00-45.00) Ferritin (10.0-291.0) ng/mL Total Protein (6.3-8.2) g/dL Stool Occult Blood Positive H (Negative) Crossmatch 08/21/18 08/21/18 08/21/18 Range/Units 03:24 03:24 05:45 RBC 3.42 L (3.80-5.40) m/uL Hgb 8.2 L (11.4-16.0) gm/dL Hct 27.2 L (34.0-46.0) % MCV 79.5 L (80.0-100.0) fL MCH 24.1 L (25.0-35.0) pg MCHC 30.3 L (31.0-37.0) g/dL RDW 17.0 H (11.5-15.5) % Sodium 134 L (137-145) mmol/L Glucose 259 H (74-99) mg/dL POC Glucose (mg/dL) 251 H (75-99) mg/dL Iron (50-170) ug/dL Iron Saturation (12.00-45.00) Ferritin (10.0-291.0) ng/mL Total Protein 6.2 L (6.3-8.2) g/dL Stool Occult Blood (Negative) Crossmatch 08/21/18 Range/Units 11:28 RBC (3.80-5.40) m/uL Hgb (11.4-16.0) gm/dL Hct (34.0-46.0) % MCV (80.0-100.0) fL MCH (25.0-35.0) pg MCHC (31.0-37.0) g/dL RDW (11.5-15.5) % Sodium (137-145) mmol/L Glucose (74-99) mg/dL POC Glucose (mg/dL) 205 H (75-99) mg/dL Iron (50-170) ug/dL Iron Saturation (12.00-45.00) Ferritin (10.0-291.0) ng/mL Total Protein (6.3-8.2) g/dL Stool Occult Blood (Negative) Crossmatch Assessment and Plan Plan: Assessment and Recommendations: 1. Microcytic Anemia: stable today 8.2 - Secondary to Acute Blood Loss Anemia and Iron deficiency component - Recurrent Epistaxis over the past week - MRIs in past do reveal sinus disease and chronic changes - Recommend ENT Consultation and CT of Sinus - Will replace with IV Iron, she can complete these as outpatient 2. HX: Breast cancer Triple Positive in 2012 - Underwent Chemotherapy, Lumpectomy, Radiation and Adjuvant Herceptin for one year - Tamoxifen x5 years completed and currently receives arimidex and to continue until 2022. - Continue Arimidex Plan: - Reviewed GI Evaluation and their recs for outpatient work-up - It appears patients blood loss anemia is stemming from epistaxis so would further evaluate with ENT consultation and CT Sinus - She has had MRI brain in past as must monitor for recurrent triple positive disease as it may metastatise to brain - Defer CT imaging to ENT DISPO: - Follow - up in office for recheck CBC next week and possible completion of parental iron - Discharge on PO BID - Follow-up with ENT - Discussed in detail with Primary team and patient Physician Attest: I have completed the ful history and physical and developed the complete impression and plan, agree with above dictation, dictated as a scribe.
== END 2018-08-21 15:45 | disposition home or self-care (01) | DRG 812 ==
LOC: EC 16:59 → 1SOBS 19:24 → OBSVTOIN 08-20 08:27 → 3SCARD 08-20 10:41
PROVIDERS: ADMIT Internal Medicine; ATTEND Internal Medicine
PROC: 30233N1 Transfusion of Nonautologous Red Blood Cells into Peripheral Vein, Percutaneous Approach (ICD-10-PCS; principal; 2018-08-20)
DX: D62 Acute posthemorrhagic anemia (principal); E03.9 Hypothyroidism, unspecified; E11.9 Type 2 diabetes mellitus without complications; E78.5 Hyperlipidemia, unspecified; F32.9 Major depressive disorder, single episode, unspecified; F41.9 Anxiety disorder, unspecified; G25.81 Restless legs syndrome; I25.10 Atherosclerotic heart disease of native coronary artery without angina pectoris; J45.909 Unspecified asthma, uncomplicated; K21.9 Gastro-esophageal reflux disease without esophagitis; M85.80 Other specified disorders of bone density and structure, unspecified site; R04.0 Epistaxis; Z79.84 Long term (current) use of oral hypoglycemic drugs; Z79.890 Hormone replacement therapy; Z79.899 Other long term (current) drug therapy; Z80.3 Family history of malignant neoplasm of breast; Z80.52 Family history of malignant neoplasm of bladder; Z80.8 Family history of malignant neoplasm of other organs or systems; Z80.42 Family history of malignant neoplasm of prostate; Z82.49 Family history of ischemic heart disease and other diseases of the circulatory system; Z83.3 Family history of diabetes mellitus; Z85.3 Personal history of malignant neoplasm of breast; Z87.891 Personal history of nicotine dependence; Z92.3 Personal history of irradiation; Z92.21 Personal history of antineoplastic chemotherapy; Z90.11 Acquired absence of right breast and nipple; G47.00 Insomnia, unspecified; Z88.0 Allergy status to penicillin; Z88.8 Allergy status to other drugs, medicaments and biological substances; K57.90 Diverticulosis of intestine, part unspecified, without perforation or abscess without bleeding; M19.90 Unspecified osteoarthritis, unspecified site
CPT/HCPCS: 36415; 71046; 80048; 80053; 82272; 82728; 83540; 83550; 83880; 84484; 85025; 85379; 86850; 86900; 86901; 86920; 93005; 93306; 99285

== ENCOUNTER 2018-08-22 14:10 | Emergency (ER) | payer OTHER ==
[2018-08-22 14:15] VITALS: BP 124/75; PULSE 98; RESP 16; TEMP 98.4
--- NOTE | 2018-08-22 14:53 | ED ---
General Adult HPI - General Chief complaint: Skin/Abscess/Foreign Body Stated complaint: Lump on lt arm Time Seen by Provider: 08/22/18 14:27 Source: patient, RN notes reviewed Mode of arrival: ambulatory Limitations: no limitations - History of Present Illness Initial comments: 57-year-old female presents to the emergency department for a chief complaint of left arm swelling. Patient states she had an IV placed a few days ago on the hospital and did receive iron and blood through this IV. Patient states she has a lump in the antecubital fossa since that time. She states it is painful to fully extend her arm. She denies fevers or chills. She denies any significant erythema over the area. Patient has no other complaints at this time including shortness of breath, chest pain, abdominal pain, nausea or vomiting, headache, or visual changes. - Related Data Home Medications Medication Instructions Recorded Confirmed Zolpidem Tartrate 5 mg PO HS PRN 04/10/16 08/22/18 metFORMIN HCL 500 mg PO AC-TID 04/10/16 08/22/18 ARIPiprazole [Abilify] 5 mg PO DAILY 09/24/17 08/22/18 Citalopram Hydrobromide [CeleXA] 40 mg PO DAILY 09/24/17 08/22/18 Oxybutynin Chloride [Ditropan XL] 15 mg PO DAILY 09/24/17 08/22/18 Pantoprazole [Protonix] 40 mg PO DAILY 09/24/17 08/22/18 ALPRAZolam [Xanax] 0.25 mg PO HS 11/15/17 08/22/18 rOPINIRole HCL [Requip] 1 mg PO BID 11/15/17 08/22/18 Anastrozole [Arimidex] 1 mg PO DAILY 08/19/18 08/22/18 Levothyroxine Sodium [Synthroid] 137 mcg PO DAILY 08/19/18 08/22/18 glipiZIDE [Glucotrol] 5 mg PO BID 08/19/18 08/22/18 Previous Rx's Medication Instructions Recorded Nitroglycerin Sl Tabs [Nitrostat] 0.4 mg SUBLINGUAL Q5M PRN #25 tab 09/25/17 Atorvastatin [Lipitor] 40 mg PO HS 30 Days #30 tab 08/21/18 Ferrous Sulfate [Feosol] 325 mg PO BID 30 Days #60 tab 08/21/18 Oxymetazoline 0.05% Nasl [place] 3 spray NASAL TID 30 Days #1 bottle 08/21/18 [Afrin 0.05% Nasal [place]] Allergies Allergy/AdvReac Type Severity Reaction Status Date / Time Penicillins Allergy Severe Anaphylaxis Verified 08/22/18 14:25 adhesive tape Allergy Rash/Hives Verified 08/22/18 14:25 prochlorperazine Allergy Confusion Verified 08/22/18 14:25 [From Compazine] Review of Systems ROS Statement: Those systems with pertinent positive or pertinent negative responses have been documented in the HPI. ROS Other: All systems not noted in ROS Statement are negative. Past Medical History Past Medical History: Asthma, Cancer, Diabetes Mellitus, GERD/Reflux, Osteoarthritis (OA), Syncope, Thyroid Disorder Additional Past Medical History / Comment(s): RLS, NIDDM type II, diverticular dx, syncope with blood draw once, migraines, breast cancer with surgery/chemo and radiation (2013), hypothyroid, insomnia, heart cath 2016 History of Any Multi-Drug Resistant Organisms: None Reported Past Surgical History: Breast Surgery, Tonsillectomy Additional Past Surgical History / Comment(s): R breast bx, R breast partial mastectomy, R breast precancerous lesion removed, EGD x2, colonoscopy. Past Anesthesia/Blood Transfusion Reactions: No Reported Reaction Past Psychological History: Anxiety, Depression Smoking Status: Former smoker Past Alcohol Use History: None Reported Past Drug Use History: None Reported - Past Family History Mother Family Medical History: Cancer, Diabetes Mellitus Additional Family Medical History / Comment(s): Mother had breast cancer. She is 75 yrs old. Father Family Medical History: No Reported History, Cancer Additional Family Medical History / Comment(s): Father is healthy and is 79yrs old, prostate CA, bladder CA Brother(s) Family Medical History: Cancer, Myocardial Infarction ([place]) Additional Family Medical History / Comment(s): Surgery throat CA General Exam Limitations: no limitations General appearance: alert, in no apparent distress Head exam: Present: atraumatic, normocephalic, normal inspection Eye exam: Present: normal appearance, PERRL, EOMI. Absent: scleral icterus, conjunctival injection, periorbital swelling ENT exam: Present: normal exam, mucous membranes moist Neck exam: Present: normal inspection, full ROM. Absent: tenderness, meningismus, lymphadenopathy Respiratory exam: Present: normal lung sounds bilaterally. Absent: respiratory distress, wheezes, rales, rhonchi, stridor Cardiovascular Exam: Present: regular rate, normal rhythm, normal heart sounds. Absent: systolic murmur, diastolic murmur, rubs, gallop, clicks Extremities exam: Present: tenderness (Tenderness noted over the medial aspect of the left antecubital fossa where a 4 cm x 4 cm area of induration is noted), normal capillary refill (Capillary refill is 2 seconds, radial pulse 2+), other (Patient has a 4 cm x 4 0 cm area of induration noted to the lateral aspect of the left antecubital fossa. No significant erythema noted over this. This area is tender. No fluctuance noted.). Absent: full ROM (Patient has full flexion with extension 160 of the left elbow) Neurological exam: Present: alert, oriented X3, CN II-XII intact Psychiatric exam: Present: normal affect, normal mood Course Vital Signs 08/22/18 14:12 Temperature 98.4 F Pulse Rate 98 Respiratory 16 Rate Blood Pressure 124/75 O2 Sat by Pulse 99 Oximetry Procedures - Procedures Initial comment: Ultrasound was performed for the left antecubital fossa with Dr. Hays which did not show any evidence of abscess or cellulitis. No fluid collections present. No cobblestone appearance Medical Decision Making - Medical Decision Making 57-year-old female presents to the emergency department for a chief complaint of pain in the left antecubital fossa. This has been ongoing for the past 2 days after patient had IV placed. No significant erythema. There is a 4 x 4 centimeter area of induration palpated on the lateral left antecubital fossa. No streaking redness. No spreading redness. No areas of fluctuance. Ultrasound was used which did not show any evidence of cellulitis or abscess. Dr Hays present for US and agrees. Patient likely experiencing superficial thrombophlebitis phlebitis. Directed to apply heat to the area and take Tylenol as she is not supposed to take Motrin. Discussed monitoring for spreading redness or signs of infection returning if these occur. These were discussed in depth. Discussed follow-up with primary care in the next 1-2 days. Discussed returning if she has any other worsening symptoms. Disposition Clinical Impression: Superficial thrombophlebitis Disposition: HOME SELF-CARE Condition: Good Instructions (If sedation given, give patient instructions): Superficial Thrombophlebitis (ED) Additional Instructions: Please take Tylenol for pain and inflammation. Please apply heat to the area. Monitor for any signs of infection such as spreading or streaking redness to return if these occur. Follow-up with primary care in 1-2 days. Return here if you have any other worsening symptoms. Is patient prescribed a controlled substance at d/c from ED?: No Referrals: Alex Raza MD [Primary Care Provider] - 1-2 days Time of Disposition: 14:52
== END 2018-08-22 15:02 | disposition home or self-care (01) ==
LOC: EC 14:10
DX: I80.8 Phlebitis and thrombophlebitis of other sites (principal); E11.9 Type 2 diabetes mellitus without complications; K21.9 Gastro-esophageal reflux disease without esophagitis; E03.9 Hypothyroidism, unspecified; F32.9 Major depressive disorder, single episode, unspecified; F41.9 Anxiety disorder, unspecified; Z85.3 Personal history of malignant neoplasm of breast; Z87.891 Personal history of nicotine dependence; Z79.84 Long term (current) use of oral hypoglycemic drugs; Z79.890 Hormone replacement therapy; Z79.899 Other long term (current) drug therapy; Z88.0 Allergy status to penicillin; Z88.8 Allergy status to other drugs, medicaments and biological substances; Z91.048 Other nonmedicinal substance allergy status
CPT/HCPCS: 99283

== ENCOUNTER 2018-08-25 18:10 | Emergency (ER) | payer OTHER ==
[2018-08-25 18:15] VITALS: RESP 18; TEMP 98.6
--- NOTE | 2018-08-25 19:22 | ED ---
Skin/Abscess/FB HPI - General Chief complaint: Skin/Abscess/Foreign Body Stated complaint: lump lt arm Time Seen by Provider: 08/25/18 18:36 Source: patient, RN notes reviewed, old records reviewed Mode of arrival: ambulatory Limitations: no limitations - History of Present Illness Initial comments: 57-year-old female presents respiratory for evaluation of her left arm pain and swelling. Patient reports she had an IV placed approximately one week ago. She states is from an 3 days ago. That time the ultrasound then observed for superficial thrombophlebitis. Patient states that the area of redness and swelling and worsening. Patient complains of pain with flexion extension of the arm. Patient has had increased area of redness over the humeral fossa, forearm. She's been taking Tylenol and placing warm compresses over the area. Patient states she has no other complaints. - Related Data Home Medications Medication Instructions Recorded Confirmed Zolpidem Tartrate 5 mg PO HS PRN 04/10/16 08/25/18 metFORMIN HCL 500 mg PO AC-TID 04/10/16 08/25/18 ARIPiprazole [Abilify] 5 mg PO DAILY 09/24/17 08/25/18 Citalopram Hydrobromide [CeleXA] 40 mg PO DAILY 09/24/17 08/25/18 Oxybutynin Chloride [Ditropan XL] 15 mg PO DAILY 09/24/17 08/25/18 Pantoprazole [Protonix] 40 mg PO DAILY 09/24/17 08/25/18 ALPRAZolam [Xanax] 0.25 mg PO HS 11/15/17 08/25/18 rOPINIRole HCL [Requip] 1 mg PO BID 11/15/17 08/25/18 Anastrozole [Arimidex] 1 mg PO DAILY 08/19/18 08/25/18 Levothyroxine Sodium [Synthroid] 137 mcg PO DAILY 08/19/18 08/25/18 glipiZIDE [Glucotrol] 5 mg PO BID 08/19/18 08/25/18 Multivitamins, Thera [Multivitamin 1 tab PO DAILY 08/25/18 08/25/18 (formulary)] Previous Rx's Medication Instructions Recorded Nitroglycerin Sl Tabs [Nitrostat] 0.4 mg SUBLINGUAL Q5M PRN #25 tab 09/25/17 Atorvastatin [Lipitor] 40 mg PO HS 30 Days #30 tab 08/21/18 Ferrous Sulfate [Feosol] 325 mg PO BID 30 Days #60 tab 08/21/18 Oxymetazoline 0.05% Nasl [place] 3 spray NASAL TID 30 Days #1 bottle 08/21/18 [Afrin 0.05% Nasal [place]ar] Cephalexin [Keflex] 500 mg PO Q6HR #40 cap 08/25/18 Ibuprofen [Motrin] 600 mg PO Q8HR PRN #20 tab 08/25/18 Allergies Allergy/AdvReac Type Severity Reaction Status Date / Time Penicillins Allergy Severe Anaphylaxis Verified 08/25/18 18:51 adhesive tape Allergy Rash/Hives Verified 08/25/18 18:51 prochlorperazine Allergy Confusion Verified 08/25/18 18:51 [From Compazine] Review of Systems ROS Statement: Those systems with pertinent positive or pertinent negative responses have been documented in the HPI. ROS Other: All systems not noted in ROS Statement are negative. Past Medical History Past Medical History: Asthma, Cancer, Diabetes Mellitus, GERD/Reflux, Osteoar thritis (OA), Syncope, Thyroid Disorder Additional Past Medical History / Comment(s): RLS, NIDDM type II, diverticular dx, syncope with blood draw once, migraines, breast cancer with surgery/chemo and radiation (2013), hypothyroid, insomnia, heart cath 2017 History of Any Multi-Drug Resistant Organisms: None Reported Past Surgical History: Breast Surgery, Tonsillectomy Additional Past Surgical History / Comment(s): R breast bx, R breast partial mastectomy, R breast precancerous lesion removed, EGD x2, colonoscopy. Past Anesthesia/Blood Transfusion Reactions: No Reported Reaction Past Psychological History: Anxiety, Depression Smoking Status: Former smoker Past Alcohol Use History: None Reported Past Drug Use History: None Reported - Past Family History Mother Family Medical History: Cancer, Diabetes Mellitus Additional Family Medical History / Comment(s): Mother had breast cancer. She is 75 yrs old. Father Family Medical History: No Reported History, Cancer Additional Family Medical History / Comment(s): Father is healthy and is 79yrs old, prostate CA, bladder CA Brother(s) Family Medical History: Cancer, Myocardial Infarction ([place]) Additional Family Medical History / Comment(s): Surgery throat CA General Exam Limitations: no limitations General appearance: alert, in no apparent distress Head exam: Present: atraumatic, normocephalic, normal inspection Eye exam: Present: normal appearance, PERRL, EOMI. Absent: scleral icterus, conjunctival injection, periorbital swelling ENT exam: Present: normal exam, mucous membranes moist Neck exam: Present: normal inspection. Absent: tenderness, meningismus, lymphadenopathy Respiratory exam: Present: normal lung sounds bilaterally. Absent: respiratory distress, wheezes, rales, rhonchi, stridor Cardiovascular Exam: Present: regular rate, normal rhythm, normal heart sounds. Absent: systolic murmur, diastolic murmur, rubs, gallop, clicks GI/Abdominal exam: Present: soft, normal bowel sounds. Absent: distended, tenderness, guarding, rebound, rigid Extremities exam: Present: normal inspection, full ROM, normal capillary refill. Absent: tenderness, pedal edema, joint swelling, calf tenderness Left Elbow exam: Present: full ROM, erythema, effusion (Review the cubital fossa). Absent: normal inspection Back exam: Present: normal inspection Neurological exam: Present: alert, oriented X3, CN II-XII intact Course Vital Signs 08/25/18 08/25/18 18:12 20:54 Temperature 98.6 F Pulse Rate 95 93 Respiratory 18 18 Rate Blood Pressure 132/69 113/80 O2 Sat by Pulse 100 98 Oximetry Disposition Clinical Impression: Superficial thrombophlebitis, Thrombosis of left cephalic vein Disposition: HOME SELF-CARE Condition: Good Instructions (If sedation given, give patient instructions): Superficial Thrombophlebitis (ED) Additional Instructions: Patient advised to follow-up with primary care provider. He's the medication as prescribed. Apply warm compresses over the forearm. Make sure you're taking Motrin as prescribed. Return to the emergency department if any alarming signs or symptoms occur. Prescriptions: Cephalexin [Keflex] 500 mg PO Q6HR #40 cap Ibuprofen [Motrin] 600 mg PO Q8HR PRN #20 tab PRN Reason: Pain Is patient prescribed a controlled substance at d/c from ED?: No Referrals: Alex Raza MD [Primary Care Provider] - 1-2 days Time of Disposition: 21:11
[2018-08-25] MEDS ORDERED: HYDROcodone/APAP 5-325MG 1 EACH TAB PO STA (19:43)
[2018-08-25 20:55] VITALS: BP 113/80; PULSE 93
--- NOTE | 2018-08-25 21:07 | US ---
EXAMINATION TYPE: US venous doppler duplex UE LT DATE OF EXAM: 08/25/2018 COMPARISON: NONE CLINICAL HISTORY: Pain. Left arm pain and swelling at elbow had an IV in arm. SIDE PERFORMED: Left FINDINGS: Grayscale, color doppler, spectral doppler imaging performed of the deep veins of the upper extremities. There is normal flow, compressibility and vascular waveforms throughout the left upper extremity. There is one exception, however, the cephalic vein at the level of the elbow is not compr essible, consistent with occlusive thrombus. IMPRESSION: 1) NEGATIVE FOR DVT, LEFT UPPER EXTREMITY. 2) HOWEVER, POSITIVE FOR CEPHALIC VEIN THROMBUS AT THE LEVEL OF THE ELBOW.
[2018-08-25] MEDS ORDERED: CEPHALEXIN 500MG STARTER PACK 4 CAP BTL PO STA (21:29)
== END 2018-08-25 21:41 | disposition home or self-care (01) ==
LOC: EC 18:10
DX: I80.8 Phlebitis and thrombophlebitis of other sites (principal); I82.612 Acute embolism and thrombosis of superficial veins of left upper extremity; E11.9 Type 2 diabetes mellitus without complications; K21.9 Gastro-esophageal reflux disease without esophagitis; M19.90 Unspecified osteoarthritis, unspecified site; E03.9 Hypothyroidism, unspecified; G25.81 Restless legs syndrome; Z85.3 Personal history of malignant neoplasm of breast; F32.9 Major depressive disorder, single episode, unspecified; F41.9 Anxiety disorder, unspecified; Z87.891 Personal history of nicotine dependence; Z79.84 Long term (current) use of oral hypoglycemic drugs; Z79.890 Hormone replacement therapy; Z79.899 Other long term (current) drug therapy; Z88.0 Allergy status to penicillin; Z91.048 Other nonmedicinal substance allergy status; Z88.8 Allergy status to other drugs, medicaments and biological substances; Z90.11 Acquired absence of right breast and nipple
CPT/HCPCS: 99284

== ENCOUNTER → 2018-12-25 | Outpatient (CLI) | payer OTHER ==
--- NOTE | 2018-12-25 14:40 | MM ---
Reason for exam: additional evaluation requested from prior study. Last mammogram was performed 1 year ago. History: Patient is postmenopausal and has history of breast cancer at age 52. Family history of breast cancer in mother at age 50, breast cancer in grandmother, and breast cancer in paternal aunt. Taking antineoplastic. Physical Findings: Nurse did not find any significant physical abnormalities on exam. MG Diagnostic Mammo w CAD BALDEMAR Bilateral CC and MLO view(s) were taken. Prior study comparison: December 24, 2017, bilateral MG diagnostic mammo w CAD BALDEMAR. November 29, 2016, bilateral MG 3d screening mammo w/cad. The breast tissue is heterogeneously dense. This may lower the sensitivity of mammography. Post therapy change on the right. These results were verbally communicated with the patient and result sheet given to the patient on 12/25/18. ASSESSMENT: Benign, BI-RAD 2 RECOMMENDATION: Follow-up diagnostic mammogram of both breasts in 1 year.
== END | disposition home or self-care (01) ==
LOC: RADMAMWWP 12:45
PROVIDERS: ATTEND Internal Medicine Hematology & Oncology
DX: Z08 Encounter for follow-up examination after completed treatment for malignant neoplasm (principal); Z85.3 Personal history of malignant neoplasm of breast
CPT/HCPCS: 77066

== ENCOUNTER 2019-01-02 14:47 | Emergency (ER) | payer OTHER ==
[2019-01-02] MEDS ORDERED: HYDROcodone/APAP 5-325MG 1 EACH TAB PO STA (15:50)
[2019-01-02] MEDS ORDERED: ORPHENADRINE 30 MG/ML 2 ML VIAL IM STA (15:50)
[2019-01-02] MEDS ORDERED: KETOROLAC 60 MG/2 ML VIAL IM STA (15:50)
--- NOTE | 2019-01-02 16:16 | XR ---
Lumbar spine HISTORY: Back pain 3 views of the lumbar spine correlated prior exam 04/11/2015 Exam is essentially stable. Lumbar vertebral bodies show preserved height, alignment, bone mineraliza tion is reduced. Sclerosis in the posterior elements of the lower lumbar spine is compatible with fac et arthropathy. There is mild multilevel spondylosis. Loss of disc height present L4-5, L5-S1, L3-4. IMPRESSION: Osteoporosis, degenerative disc disease and facet arthropathy.
--- NOTE | 2019-01-02 16:26 | ED ---
Back Pain HPI - General Chief Complaint: Back Pain/Injury Stated Complaint: Back pain Time Seen by Provider: 01/02/19 15:23 Source: patient, RN notes reviewed, old records reviewed Limitations: no limitations - History of Present Illness Initial Comments: Patient is a fish is controlled female presents with lower back pain for one week. He denies any saddle anesthesias. Patient has worsening pain with range of motion and movement stating. Denies any fevers or chills or fall. Patient states that she had taken some Motrin Tylenol for pain. She denies any other significant complaints. Patient was in room 16.Patient denies any recent fever, chills, shortness of breath, chest pain, abdominal pain, nausea vomiting, numbness or tingling, dysuria or hematuria, constipation or diarrhea, headaches or visual changes, or any other current symptoms - Related Data Home Medications Medication Instructions Recorded Confirmed Zolpidem Tartrate 5 mg PO HS PRN 04/10/16 08/25/18 metFORMIN HCL 500 mg PO AC-TID 04/10/16 08/25/18 ARIPiprazole [Abilify] 5 mg PO DAILY 09/24/17 08/25/18 Citalopram Hydrobromide [CeleXA] 40 mg PO DAILY 09/24/17 08/25/18 Oxybutynin Chloride [Ditropan XL] 15 mg PO DAILY 09/24/17 08/25/18 Pantoprazole [Protonix] 40 mg PO DAILY 09/24/17 08/25/18 ALPRAZolam [Xanax] 0.25 mg PO HS 11/15/17 08/25/18 rOPINIRole HCL [Requip] 1 mg PO BID 11/15/17 08/25/18 Anastrozole [Arimidex] 1 mg PO DAILY 08/19/18 08/25/18 Levothyroxine Sodium [Synthroid] 137 mcg PO DAILY 08/19/18 08/25/18 glipiZIDE [Glucotrol] 5 mg PO BID 08/19/18 08/25/18 Multivitamins, Thera [Multivitamin 1 tab PO DAILY 08/25/18 08/25/18 (formulary)] Previous Rx's Medication Instructions Recorded Nitroglycerin Sl Tabs [Nitrostat] 0.4 mg SUBLINGUAL Q5M PRN #25 tab 09/25/17 Atorvastatin [Lipitor] 40 mg PO HS 30 Days #30 tab 08/21/18 Ferrous Sulfate [Feosol] 325 mg PO BID 30 Days #60 tab 08/21/18 Oxymetazoline 0.05% Nasl [place]der 3 spray NASAL TID 30 Days #1 bottle 08/21/18 [Afrin 0.05% Nasal [place]der] Cephalexin [Keflex] 500 mg PO Q6HR #40 cap 08/25/18 Ibuprofen [Motrin] 600 mg PO Q8HR PRN #20 tab 08/25/18 Acetaminophen with Codeine 1 tab PO Q6H PRN 3 Days #12 tab 01/02/19 [Tylenol w/codeine #3] Cyclobenzaprine [Flexeril] 10 mg PO TID #15 tab 01/02/19 Dexamethasone 0.75 mg PO DAILY #12 tab 01/02/19 Ibuprofen 600 mg PO TID #15 tablet 01/02/19 Allergies Allergy/AdvReac Type Severity Reaction Status Date / Time Penicillins Allergy Severe Anaphylaxis Verified 01/02/19 15:11 adhesive tape Allergy Rash/Hives Verified 01/02/19 15:11 prochlorperazine Allergy Confusion Verified 01/02/19 15:11 [From Compazine] Review of Systems ROS Statement: Those systems with pertinent positive or pertinent negative responses have been documented in the HPI. ROS Other: All systems not noted in ROS Statement are negative. Past Medical History Past Medical History: Asthma, Cancer, Diabetes Mellitus, GERD/Reflux, Osteoarthritis (OA), Syncope, Thyroid Disorder Additional Past Medical History / Comment(s): RLS, NIDDM type II, diverticular dx, syncope with blood draw once, migraines, breast cancer with surgery/chemo and radiation (2013), hypothyroid, insomnia, heart cath 2017 History of Any Multi-Drug Resistant Organisms: None Reported Past Surgical History: Breast Surgery, Tonsillectomy Additional Past Surgical History / Comment(s): R breast bx, R breast partial mastectomy, R breast precancerous lesion removed, EGD x2, colonoscopy. Past Anesthesia/Blood Transfusion Reactions: No Reported Reaction Past Psychological History: Anxiety, Depression Smoking Status: Former smoker Past Alcohol Use History: None Reported Past Drug Use History: None Reported - Past Family History Mother Family Medical History: Cancer, Diabetes Mellitus Additional Family Medical History / Comment(s): Mother had breast cancer. She is 75 yrs old. Father Family Medical History: No Reported History, Cancer Additional Family Medical History / Comment(s): Father is healthy and is 79yrs old, prostate CA, bladder CA Brother(s) Family Medical History: Cancer, Myocardial Infarction ([place]) Additional Family Medical History / Comment(s): Surgery throat CA General Exam - General Exam Comments Initial Comments: Physical 58 rolled female. Alert and oriented. No distress. Limitations: no limitations Head exam: Present: atraumatic, normocephalic, normal inspection Eye exam: Present: normal appearance, PERRL, EOMI. Absent: scleral icterus, conjunctival injection, periorbital swelling ENT exam: Present: normal exam, mucous membranes moist Neck exam: Present: normal inspection. Absent: tenderness, meningismus, lymphadenopathy Respiratory exam: Present: normal lung sounds bilaterally Cardiovascular Exam: Present: regular rate, normal rhythm, normal heart sounds. Absent: systolic murmur, diastolic murmur, rubs, gallop, clicks GI/Abdominal exam: Present: soft, normal bowel sounds. Absent: distended, tenderness, guarding, rebound, rigid Extremities exam: Present: normal inspection, full ROM, normal capillary refill. Absent: tenderness, pedal edema, joint swelling, calf tenderness Back exam: Present: normal inspection Neurological exam: Present: alert, oriented X3, CN II-XII intact Psychiatric exam: Present: normal affect, normal mood Course Vital Signs 01/02/19 01/02/19 15:11 17:12 Temperature 97.9 F 98 F Pulse Rate 92 87 Respiratory 18 12 Rate Blood Pressure 115/78 112/81 O2 Sat by Pulse 95 98 Oximetry Medical Decision Making - Medical Decision Making Patient is a 58-year-old female presents today for evaluation with complaints of lower back pain over her sacral area. She has no falls or trauma. Patient is worse with movement. X-ray she is evidence of degenerative disc disease. Patient was informed of these results. We'll discharge the Patient was requesting muscle axis anti-inflammatory medicine. Discussed possible referral to orthopedic educational specialist. Questions answered return parameters were discussed. - Radiology Data Radiology results: report reviewed X-ray shows evidence of osteoporosis, degenerative disc disease and facet arthropathy. Disposition Clinical Impression: DDD (degenerative disc disease), Muscle spasm Disposition: HOME SELF-CARE Condition: Good Instructions (If sedation given, give patient instructions): Acute Low Back Pain (ED) Additional Instructions: Patient advised to take pain medications as prescribed. A close up with your primary care physician. [place] Patient should apply warm compresses over the area. Return to the emergency department if any alarming signs or symptoms occur. Prescriptions: Dexamethasone 0.75 mg PO DAILY #12 tab Cyclobenzaprine [Flexeril] 10 mg PO TID #15 tab Ibuprofen 600 mg PO TID #15 tablet Acetaminophen with Codeine [Tylenol w/codeine #3] 1 tab PO Q6H PRN 3 Days #12 tab PRN Reason: Pain Is patient prescribed a controlled substance at d/c from ED?: Yes If prescribed controlled substance>3 days was MAPS reviewed?: Prescribed <3 Days If opioid is for acute pain is fill amount 7 days or less?: Yes If Rx opioid, was Start Talking consent form obtained?: Yes Referrals: Alex Raza MD [Primary Care Provider] - 1-2 days Time of Disposition: 16:56
[2019-01-02 17:15] VITALS: BP 112/81; PULSE 87; RESP 12; TEMP 98
== END 2019-01-02 17:12 | disposition home or self-care (01) ==
LOC: EC 14:47
DX: M51.36 Other intervertebral disc degeneration, lumbar region (principal); E11.9 Type 2 diabetes mellitus without complications; K21.9 Gastro-esophageal reflux disease without esophagitis; E03.9 Hypothyroidism, unspecified; G25.81 Restless legs syndrome; F32.9 Major depressive disorder, single episode, unspecified; F41.9 Anxiety disorder, unspecified; Z87.891 Personal history of nicotine dependence; Z88.0 Allergy status to penicillin; Z88.8 Allergy status to other drugs, medicaments and biological substances; Z91.048 Other nonmedicinal substance allergy status; Z79.84 Long term (current) use of oral hypoglycemic drugs; Z79.890 Hormone replacement therapy; Z79.899 Other long term (current) drug therapy; Z85.3 Personal history of malignant neoplasm of breast; Z92.21 Personal history of antineoplastic chemotherapy; Z92.3 Personal history of irradiation; Z90.11 Acquired absence of right breast and nipple; Z87.39 Personal history of other diseases of the musculoskeletal system and connective tissue
CPT/HCPCS: 72100; 99284; 96372 ×2; J2360; J1885

== ENCOUNTER → 2019-02-06 | Outpatient (CLI) | payer OTHER ==
--- NOTE | 2019-02-06 20:46 | MR ---
EXAMINATION TYPE: MR lumbar spine wo con DATE OF EXAM: 02/06/2019 COMPARISON: None HISTORY: LBP x 4 wks, no trauma CONTRAST: 0 mL intravenous Gadavist. TECHNIQUE: Multiplanar, multisequence images of the lumbar spine were acquired. FINDINGS: Cord terminates at the L1 level. L5-S1: No significant disc bulge or disc herniation. No spinal canal stenosis. No foraminal stenosi s. Facet hypertrophy is present.. L4-L5: Mild disc bulge is present with moderate anterior thecal sac flattening. Facet hypertrophy is posterior lateral thecal sac compression. Some ligamentum flavum laxity is present. No spinal canal stenosis. No foraminal stenosis. . L3-L4: No significant disc bulge or disc herniation. No spinal canal stenosis. No foraminal stenosi s. Mild facet hypertrophy is present with posterior lateral thecal sac contact.. L2-L3: No significant disc bulge or disc herniation. No spinal canal stenosis. No foraminal stenosi s. Mild facet hypertrophy is present.. L1-L2: No significant disc bulge or disc herniation. No spinal canal stenosis. No foraminal stenosi s. . T12-L1: No significant disc bulge or disc herniation. No spinal canal stenosis. No foraminal stenos is. . Disc desiccation is present throughout the lumbar spine. No disc herniation is evident. Vertebral bod y heights are preserved. Alignment is preserved. IMPRESSION: 1. Disc bulging and facet hypertrophy L4-5 has mild thecal sac contact without stenosis. 2. Multilevel mild facet hypertrophy.
== END | disposition home or self-care (01) ==
LOC: RADMRIMAIN 15:43
PROVIDERS: ATTEND Internal Medicine
DX: M51.26 Other intervertebral disc displacement, lumbar region (principal); M46.96 Unspecified inflammatory spondylopathy, lumbar region
CPT/HCPCS: 72148

== ENCOUNTER → 2019-02-13 | Outpatient (CLI) | payer OTHER ==
--- NOTE | 2019-02-13 11:08 | BD ---
EXAMINATION TYPE: Axial Bone Density DATE OF EXAM: 02/13/2019 COMPARISON: 07/03/2017 CLINICAL HISTORY: M 89.9 Height: 67 Weight: 183.3 FRAX RISK QUESTIONS: Alcohol (3 or more units per day): no Family History (Parent hip fracture): no Glucocorticoids (More than 3mos): no (Ex: prednisone, prednisolone, methylprednisolone, dexamethasone, and hydrocortisone). History of Fracture in Adulthood: no Secondary Osteoporosis: 1. Type 1 Diabetes: no 2. Hyperthyroidism: no 3. Menopause before 45: no 4. Malnutrition: no 5. Chronic liver disease: no Rheumatoid Arthritis: no Current Tobacco Use: no RISK FACTORS HISTORY OF: Family History of Osteoporosis: no Active: sometimes Diet low in dairy products/other sources of calcium: yes Postmenopausal woman: age 52 Lost more than 2 inches in height since high school: no MEDICATIONS: ambien, atorvastatin, abilify, celexa, ditropan, ferrous, sulfate, glipizide, metformin, anastrozole, xanax, requip Thyroid Medications: thyroid How Lon years Osteoporosis Medications: alendronate How Lon months Additional History: EXAM MEASUREMENTS: Bone mineral densitometry was performed using the [employer]. Bone mineral density as measured about the Lumbar spine is: ----- L1-L4(G/cm2): 0.950 T Score Values are as follows: ----- L2: -2.8 ----- L3: -1.5 ----- L4: -1.7 ----- L1-L4: -1.8 Bone mineral density has: increased 1.8 % since study of: 07.03.2017 Bone mineral density about the R hip (g/cm2): 0.961 Bone mineral density about the L hip (g/cm2): 0.949 T Score values are as follows: -----R Neck: -0.6 -----L Neck: -0.6 -----R Total: -0.7 -----L Total: -0.8 Bone mineral density has: decreased -0.5 % since study of: 07.03.2017 IMPRESSION: Osteopenia (T Score between -2.5 and -1) with regards to the lumbar spine. There is slightly increased risk of fracture and the patient may be considered for imani en Re-Screen 2-5 years. NOTE: T-SC =SD OF THE YOUNG ADULT MEAN.
== END | disposition home or self-care (01) ==
LOC: RADBDWWP 09:50
PROVIDERS: ATTEND Internal Medicine
DX: M85.88 Other specified disorders of bone density and structure, other site (principal)
CPT/HCPCS: 77080

== ENCOUNTER → 2019-04-27 | Outpatient (CLI) | payer OTHER ==
--- NOTE | 2019-04-27 14:44 | XR ---
Left shoulder HISTORY: Trauma one month prior, pain 3 views of the left shoulder Bone mineralization, joint spaces and alignment are maintained. Left lung apex as visualized is briseyda l. IMPRESSION: No fracture or dislocation.
== END ==
LOC: RADXRMAIN 10:50
PROVIDERS: ATTEND Internal Medicine
DX: M25.512 Pain in left shoulder (principal)

== ENCOUNTER → 2020-01-06 | Outpatient (CLI) | payer OTHER ==
--- NOTE | 2020-01-12 11:10 | MM ---
Reason for exam: additional evaluation requested from prior study. Last mammogram was performed 1 year ago. History: Patient is postmenopausal and has history of breast cancer at age 52. Family history of breast cancer in mother at age 50, breast cancer in grandmother, and breast cancer in paternal aunt. Lumpectomy of the right breast. Chemotherapy. Radiation therapy of the right breast. Taking antineoplastic. Physical Findings: Nurse did not find any significant physical abnormalities on exam. MG 3D Diag Mammo W/Cad BALDEMAR Bilateral CC and MLO view(s) were taken. Prior study comparison: December 25, 2018, bilateral MG diagnostic mammo w CAD BALDEMAR. December 24, 2017, bilateral MG diagnostic mammo w CAD BALDEMAR. The breast tissue is heterogeneously dense. This may lower the sensitivity of mammography. Post surgical distortion right breast, stable. No significant new findings when compared with previous films. These results were verbally communicated with the patient and result sheet given to the patient on 01/06/20. ASSESSMENT: Benign, BI-RAD 2 RECOMMENDATION: Follow-up diagnostic mammogram of both breasts in 1 year.
== END | disposition home or self-care (01) ==
LOC: RADMAMWWP 07:33
PROVIDERS: ATTEND Internal Medicine Hematology & Oncology
DX: Z08 Encounter for follow-up examination after completed treatment for malignant neoplasm (principal); Z85.3 Personal history of malignant neoplasm of breast
CPT/HCPCS: 77066; G0279; 77062

== ENCOUNTER → 2020-03-31 | Outpatient (CLI) | payer OTHER ==
--- NOTE | 2020-03-31 13:46 | XR ---
Cervical spine HISTORY: Neck pain 6 views of the cervical spine There are hypertrophic changes, multilevel spondylosis of the cervical vertebral bodies. Loss of disc height is present at C5-6, C6-7. Minimal retrolisthesis grade 1 C5-6. Prevertebral soft tissues are normal. There are facet arthropathy changes. Oblique images show foraminal encroachment at C5-6 and C 6-7 bilaterally. IMPRESSION: Degenerative disc disease and facet arthropathy. Multilevel foraminal encroachment.
--- NOTE | 2020-03-31 15:15 | XR ---
Lumbar spine HISTORY: Low back pain 4 views of lumbosacral spine Correlation to prior exam dated 01/02/2019 Bone mineralization is reduced. There is a metallic density superimposed over the right ilium. Lumbar vertebral bodies show preserved height and alignment. Bone mineralization is reduced. Loss of disc h eight present especially at L5-S1 and L4-5 and L3-4. There is multilevel spondylosis. Sclerosis is pr esent in the posterior elements. IMPRESSION: Degenerative disc disease, facet arthropathy, osteopenia.
== END | disposition home or self-care (01) ==
LOC: RADXRMAIN 12:23
PROVIDERS: ATTEND Internal Medicine
DX: M50.322 Other cervical disc degeneration at C5-C6 level (principal); M51.36 Other intervertebral disc degeneration, lumbar region; M85.88 Other specified disorders of bone density and structure, other site; M47.892 Other spondylosis, cervical region; M47.896 Other spondylosis, lumbar region
CPT/HCPCS: 72050; 72100

== ENCOUNTER → 2020-05-02 | Day surgery (SDC) | payer OTHER ==
[2020-04-26 16:10] VITALS: BMI 30.7
[~2020-05-02] MED LIST: ALPRAZolam 0.25 MG TAB PO PRN; ALPRAZolam 0.5 MG TAB PO PRN; ASPIRIN 325 MG TAB PO STA; ATORVASTATIN 80 MG TAB PO STA; IOPAMIDOL-370 100ML BTL INJ ONE; LIDOCAINE 1% INJ 10MG/ML (20 ML MDV) SQ ONE; MIDAZOLAM 2 MG/2 ML VIAL IV ONE; NITROGLYCERIN SL TABS 0.4 MG TAB SUBLINGUAL PRN; SODIUM CHLORIDE 0.9% 1,000 ML IV SCH; SODIUM CHLORIDE 0.9% 1,000 ML in EMPTY BAG 1 BAG IV ONE
[2020-05-02 07:18] VITALS: RESP 18; TEMP 98.4
[2020-05-02 07:18] LABS: Glucose,Whole Blood 162 mg/dL (75-99)
[2020-05-02 07:38] LABS: Basophils % (A) 1 %; Eosinophils # (A) 0.3 k/uL (0-0.7); Eosinophils % (A) 4 %; HCT 41.9 % (34.0-46.0); HGB 13.7 gm/dL (11.4-16.0); Lymphocytes % (A) 42 %; MCH 30.2 pg (25.0-35.0); MCHC 32.6 g/dL (31.0-37.0); MCV 92.7 fL (80.0-100.0); Mean Platelet Volume 7.5; Monocytes # (A) 0.3 k/uL (0-1.0); Monocytes % (A) 4 %; Neutrophils # (A) 3.5 k/uL (1.3-7.7); Neutrophils % (A) 48 %; Platelet Count 294 k/uL (150-450); RBC 4.52 m/uL (3.80-5.40); RDW 13.3 % (11.5-15.5); WBC 7.2 k/uL (3.8-10.6)
[2020-05-02 07:50] LABS: African American GFR (CKD) >90 (>60 ml/min/1.73 sqM); Anion Gap 7 mmol/L; Blood Urea Nitrogen 14 mg/dL (7-17); Calcium 9.2 mg/dL (8.4-10.2); Carbon Dioxide 28 mmol/L (22-30); Chloride 103 mmol/L (98-107); Glucose 175 mg/dL (74-99); Non-African American GFR(CKD) >90 (>60 ml/min/1.73 sqM); Potassium 4.5 mmol/L (3.5-5.1); Sodium 138 mmol/L (137-145)
--- NOTE | 2020-05-02 09:44 | CC ---
CARDIAC CATHETERIZATION REPORT DATE OF SERVICE: 05/02/2020 PROCEDURE: Left heart catheterization and coronary angiography. PERFORMED BY: Dr. Henrique Bunn. Moderate conscious sedation time was 21 minutes. Patient was administered Versed. Oxygenation, hemodynamics, and EKG were monitored closely. CLINICAL INFORMATION: Mrs. Godwin Aranda is a 59-year-old lady with history of hypertension, hyperlipidemia, diabetes, and depression, had a cardiac cath in 2016 which did not reveal significant disease. She has been having symptoms strongly suggestive of angina with chest heaviness and pressure with activity and therefore she was advised cardiac cath after due discussion regarding risks, benefits, and options. PROCEDURE NOTE: Under local anesthesia and strict aseptic precautions, a 6-Occitan introducer was placed in the right femoral artery. Using standard Carito catheters, I performed coronary angiography and the same right catheter was used to check LV pressure but LV gram was not performed. She had 2 separate origins of the circumflex and LAD right next to each other and I used the same catheter with some manipulation, I was able to get selective injection of both vessels. The patient tolerated procedure well without complication. The sheath was taken out and Angio-Seal device used to secure hemostasis and she was sent to the room in stable condition. CARDIAC CATHETERIZATION FINDINGS: Left ventricular end-diastolic pressure was about 10 mmHg without any gradient across the aortic valve. CORONARY ANGIOGRAPHY FINDINGS: RIGHT CORONARY ARTERY: Technically a dominant vessel. No significant disease distally, bifurcates into PDA and PLV has minor irregularities. LEFT MAIN CORONARY ARTERY: This really does not exist because both LAD and circumflex come from 2 separate origins, 1 below the other. LEFT ANTERIOR DESCENDING CORONARY ARTERY: Good caliber vessel extends along the anterior wall, gives off septal branches, bifurcates into 2 small branches. The LAD then continues on towards the anterior wall. Distal 1/4 of the LAD has diffuse disease but no significant obstruction. LAD therefore has distally has some disease, but no significant disease. Two septal branches are free of significant disease. LEFT POSTERIOR CIRCUMFLEX CORONARY ARTERY: This comes off from a separate origin, nondominant vessel, gives off 2 small branches. Minor irregularities, no significant disease. LEFT VENTRICULOGRAM: Left ventriculogram was not performed. FINAL IMPRESSION: This patient has a right dominant system, no significant obstructive disease in RCA of circumflex. Mid and distal LAD have diffuse disease. The diagonal and septal branches are free of significant disease. Filling pressures are normal. No gradient across aortic valve. RECOMMENDATIONS: Findings were discussed with the patient and her father. I am recommending continued medical therapy with risk factor modification. No intervention necessary. Patient will be discharged today and will follow up with me later on this week. She will also follow up with primary care physician Dr. Raza. ANGEL / YOLISN: [id number] /
[2020-05-02 14:05] VITALS: BP 124/74
[2020-05-02 14:33] VITALS: PULSE 68
== END ==
LOC: CATHCVL 06:34
PROVIDERS: ATTEND Internal Medicine Interventional Cardiology
DX: I25.110 Atherosclerotic heart disease of native coronary artery with unstable angina pectoris (principal); R07.89 Other chest pain; I10 Essential (primary) hypertension; E78.2 Mixed hyperlipidemia; E11.9 Type 2 diabetes mellitus without complications; F32.9 Major depressive disorder, single episode, unspecified; D50.0 Iron deficiency anemia secondary to blood loss (chronic); Z98.890 Other specified postprocedural states; Z79.899 Other long term (current) drug therapy; Z79.84 Long term (current) use of oral hypoglycemic drugs; Z79.811 Long term (current) use of aromatase inhibitors; Z79.83 Long term (current) use of bisphosphonates; Z79.890 Hormone replacement therapy; Z91.09 Other allergy status, other than to drugs and biological substances; Z88.1 Allergy status to other antibiotic agents; Z88.8 Allergy status to other drugs, medicaments and biological substances; Z88.0 Allergy status to penicillin; Z82.49 Family history of ischemic heart disease and other diseases of the circulatory system
CPT/HCPCS: 93458; 80048; 85025; C1769 ×3; C1760; C1894; J2250; J2001; Q9967

== ENCOUNTER → 2020-05-05 | Outpatient (CLI) | payer OTHER ==
--- NOTE | 2020-05-05 08:38 | BD ---
EXAMINATION TYPE: Axial Bone Density DATE OF EXAM: 05/05/2020 COMPARISON: 02/13/2019 CLINICAL HISTORY: 58-year-old female postmenopausal screening Height: 65.5 IN Weight: 188 LBS RISK FACTORS HISTORY OF: Active: MODERATE Diet low in dairy products/other sources of calcium: YES Postmenopausal woman: AGE 52 MEDICATIONS: Thyroid Medications: YES Which medication: Synthroid How Lon+ YEARS Additional Medications: CALCIUM, VIT D, SYNTHROID, AMBIEN, ARIMIDEX, DIABETES MEDS, METFORMIN, GLIPIZ RICARDA, LANTIS INJECTION, TYLENOL WITH CODEINE, REQUIP, IRON, Additional History: BREAST CANCER WITH CHEMO AND RADIATION EXAM MEASUREMENTS: Bone mineral densitometry was performed using the Zapper System. Bone mineral density as measured about the Lumbar spine is: ----- L1-L4(G/cm2): 0.962 T Score Values are as follows: ----- L2: -3.2 ----- L3: -1.2 ----- L4: -1.6 ----- L1-L4: -1.8 Bone mineral density has: Increased 0.8% since study of: 02/13/2019 Bone mineral density about the R hip (g/cm2): 0.968 Bone mineral density about the L hip (g/cm2): 0.908 T Score values are as follows: -----R Neck: -0.5 -----L Neck: -0.9 -----R Total: -0.6 -----L Total: -0.9 Bone mineral density has: Decreased -0.1% since study of: 02/13/2019 IMPRESSION: Osteopenia (T Score between -2.5 and -1). There is slightly increased risk of fracture and the patient may be considered for treatment. Re-Screen 2-5 years. NOTE: T-SCORE=SD OF THE YOUNG ADULT MEAN.
== END | disposition home or self-care (01) ==
LOC: RADBDWWP 07:53
PROVIDERS: ATTEND Internal Medicine Hematology & Oncology
DX: C50.611 Malignant neoplasm of axillary tail of right female breast (principal); M85.80 Other specified disorders of bone density and structure, unspecified site; Z79.890 Hormone replacement therapy
CPT/HCPCS: 77080

== ENCOUNTER → 2020-08-09 | Outpatient (CLI) | payer OTHER ==
--- NOTE | 2020-08-09 17:25 | XR ---
EXAMINATION TYPE: XR chest 2V DATE OF EXAM: 08/09/2020 COMPARISON: Chest x-ray of August 19, 2018. HISTORY: Cough, fever, and weakness. TECHNIQUE: Frontal and lateral views of the chest are obtained. FINDINGS: There is chronic parenchymal changes bilaterally without suspicious new focal air space op acity, pleural effusion, or pneumothorax seen. The cardiac silhouette size is enlarged. Surgical cli ps overlying right breast redemonstrated with asymmetric diminished size right breast shadow. The oss eous structures are intact. IMPRESSION: Chronic changes and cardiomegaly without new acute pulmonary process.
== END ==
LOC: RADXRMAIN 16:18
PROVIDERS: ATTEND Internal Medicine
DX: I51.7 Cardiomegaly (principal)
CPT/HCPCS: 71046

== ENCOUNTER → 2021-01-06 | Outpatient (CLI) | payer OTHER ==
--- NOTE | 2021-01-10 14:03 | MM ---
Reason for exam: additional evaluation requested from prior study. Last mammogram was performed 1 year ago. History: Patient is postmenopausal and has history of breast cancer at age 52. Family history of breast cancer in mother at age 50, breast cancer in grandmother, and breast cancer in paternal aunt. Lumpectomy of the right breast. Chemotherapy. Radiation therapy of the right breast. Taking antineoplastic. Physical Findings: Nurse did not find any significant physical abnormalities on exam. MG 3D Diag Mammo W/Cad BALDEMAR Bilateral CC and MLO view(s) were taken. Prior study comparison: January 06, 2020, bilateral MG 3d diag mammo w/cad BALDEMAR. December 24, 2017, bilateral MG diagnostic mammo w CAD BALDEMAR. November 29, 2016, bilateral MG 3d screening mammo w/cad. The breast tissue is heterogeneously dense. This may lower the sensitivity of mammography. Previous mammotome biopsy in the right breast. Asymmetric breast tissue greater in the left breast. Post surgical changes right upper outer quadrant. No significant new findings when compared with previous films. These results were verbally communicated with the patient and result sheet given to the patient on 01/06/21. ASSESSMENT: Benign, BI-RAD 2 RECOMMENDATION: Follow-up diagnostic mammogram of both breasts in 1 year.
== END | disposition home or self-care (01) ==
LOC: RADMAMWWP 11:10
PROVIDERS: ATTEND Internal Medicine Hematology & Oncology
DX: R92.2 Inconclusive mammogram (principal); Z78.0 Asymptomatic menopausal state; Z80.3 Family history of malignant neoplasm of breast; Z85.3 Personal history of malignant neoplasm of breast
CPT/HCPCS: 77066; G0279; 77062